=== PATIENT | female | born 1965 | race Caucasian/White ===

== ENCOUNTER 2016-09-24 00:29 | Inpatient (IN) | payer MEDICARE, OTHER ==
[~2016-09-24] VITALS: Ht 162.6 cm; Wt 98.6 kg
[~2016-09-24 00:29] MED LIST: PALI117P IM
[2016-09-24 00:34] VITALS: BP 167/84; PULSE 100; RESP 16; TEMP 98.4; O2SAT 97
--- NOTE | 2016-09-24 01:07 | PD ---
HPI Chief Complaint: Psychiatric Symptoms Time Seen by Provider: 01:05 Travel History International Travel<30 days: No Contact w/Intl Traveler<30days: No Traveled to known affect area: No History of Present Illness HPI 50 year-old female history of bipolar disorder presents to the emergency department voluntarily for psychiatric evaluation. Patient is requesting to be restarted on lithium. [facility] her on injection and Prozac. She states the injection did not work and the Prozac has helped her to feel good "but too good." She states that she needs something to help calm her down area she states lithium always has controlled her mood disorder. She denies suicidal or homicidal ideations. She states she simply just wants restarted on lithium to help her feel normal. PFSH Past Medical History Hx Anticoagulant Therapy: No Arthritis: Yes Asthma: Yes Autoimmune Disease: No Blood Disorders: No Bipolar Disorder: Yes Anxiety: Yes Depression: Yes Heart Rhythm Problems: No Cancer: No Cardiovascular Problems: Yes (Myocardial Infarction 2008) High Cholesterol: No Chemotherapy: No Chest Pain: Yes (2001) Congestive Heart Failure: No COPD: Yes Cerebrovascular Accident: No Diabetes: No Diminished Hearing: No Endocrine: No Gastrointestinal Disorders: Yes GERD: No Glaucoma: No Genitourinary: No Headaches: Yes (migraines for past three years) Hepatitis: No Hiatal Hernia: No Heparin Induced Thrombocytopen: No Hypertension: No Immune Disorder: No Implanted Vascular Access Dvce: No Kidney Stones: No Musculoskeletal: No Neurologic: Yes (CHIARI 1 MALFORMATION) Psychiatric: Yes (Bipolar Disorder depressed psychotic) Reproductive: No Respiratory: Yes (HX OF PE) Immunizations Current: Yes Myocardial Infarction: Yes (2008) Radiation Therapy: No Renal Failure: No Schizophrenia: Yes Seizures: No Sleep Apnea: No Thyroid Disease: No Ulcer: No PNEUMOCCOCAL Vaccine (Year): 3 ?: Not Menopausal: Yes : 3 Para: 2 Miscarriage: 1 Past Surgical History Abdominal Surgery: Yes (GALLBLADDER REMOVED) AICD: No Appendectomy: Yes Cardiac Surgery: No Cholecystectomy: Yes (2003) Ear Surgery: No Eye Surgery: No Genitourinary Surgery: No Gynecologic Surgery: No Hysterectomy: No Neurologic Surgery: No Pacemaker: No Thoracic Surgery: No Tonsillectomy: Yes (AND ADENOIDS) Other Surgery: Yes (GALLBLADDER REMOVER/APPENDECTOMY) Social History Alcohol Use: No Tobacco Use: No Substance Use: No Allergies-Medications (Allergen,Severity, Reaction): Coded Allergies: Geodon (Verified Allergy, Severe, "SOB-TARDIVE DYSKINESIA", 09/24/16) Haldol (Verified Allergy, Severe, 09/24/16) Iodine (Verified Allergy, Severe, HIVES, 09/24/16) Prolixin (Verified Allergy, Severe, 09/24/16) Thorazine (Verified Allergy, Severe, SOB, 09/24/16) Zyprexa (Verified Allergy, Severe, SOB, 09/24/16) Sulfa (Verified Allergy, Mild, 09/24/16) Shellfish (Verified Allergy, Unknown, 09/24/16) Reported Meds & Prescriptions Reported Meds & Active Scripts Active Invega Sustenna Inj (Paliperidone Palmitate) 117 Mg/0.75 Ml Inj 117 Mg IM Q28D Next dose of Invega Sustenna due on 09/29/2016. Review of Systems Except as stated in HPI: all other systems reviewed are Neg Physical Exam Narrative GENERAL: Well-nourished, well-developed female patient in no acute distress SKIN: Warm and dry. HEAD: Normocephalic. EYES: No scleral icterus. No injection or drainage. NECK: Supple, trachea midline. No JVD or lymphadenopathy. CARDIOVASCULAR: Tachycardic rate and rhythm without murmurs, gallops, or rubs. RESPIRATORY: Breath sounds equal bilaterally. No accessory muscle use. GASTROINTESTINAL: Abdomen soft, non-tender, nondistended. MUSCULOSKELETAL: No cyanosis, or edema. BACK: Nontender without obvious deformity. No CVA tenderness. Data Data Last Documented VS Vital Signs Date Time Temp Pulse Resp B/P Pulse Ox O2 Delivery O2 Flow Rate FiO2 09/24/16 00:34 98.4 100 16 167/84 97 Room Air Orders Complete Blood Count With Diff (09/24/16 00:52) Basic Metabolic Panel (Bmp) (09/24/16 00:52) Drug Screen, Random Urine (09/24/16 00:52) Alcohol (Ethanol) (09/24/16 00:52) Psych Screen (09/24/16 00:52) Urinalysis - C+S If Indicated (09/24/16 00:52) MDM Medical Decision Making Medical Screen Exam Complete: Yes Emergency Medical Condition: Yes Medical Record Reviewed: Yes Differential Diagnosis Mood disorder versus personality disorder versus adjustment reaction disorder Narrative Course 50 year-old female presents to emergency department voluntarily for psychiatric evaluation. Patient appears without distress. Lab work is ordered and sent. Pending no acute lab abnormality, patient will be medically cleared. She is signed out to Wally Garcia PA-C who will assume care at this time. Diagnosis Primary Impression: Bipolar disorder Qualified Code: F31.11 - Bipolar affective disorder, currently manic, mild Condition: Stable Ronda Leslie Sep 24, 2016 01:07
[2016-09-24 02:06] LABS: AUTOMATED NEUTROPHIL # 7.5 TH/MM3 (1.8-7.7); BASOPHIL # 0.1 TH/MM3 (0-0.2); BASOPHIL % 1.1 % (0.0-2.0); EOSINOPHIL # 0.7 TH/MM3 (0-0.4); EOSINOPHIL % 5.6 % (0.0-4.0); HEMATOCRIT 36.3 % (35.0-46.0); HEMO FLAGS DIFF FINAL; LYMPH % 27.8 % (9.0-44.0); LYMPHOCYTE # 3.6 TH/MM3 (1.0-4.8); MEAN CELL VOLUME 92.1 FL (80.0-100.0); MEAN CORPUSCULAR HEMOGLOBIN 30.9 PG (27.0-34.0); MEAN CORPUSCULAR HGB CONC 33.5 % (32.0-36.0); MONO % 7.7 % (0.0-8.0); NEUT % 57.8 % (16.0-70.0); PLATELET COUNT 254 TH/MM3 (150-450); RED BLOOD COUNT 3.94 MIL/MM3 (4.00-5.30); RED CELL DISTRIBUTION WIDTH 12.6 % (11.6-17.2); WHITE BLOOD COUNT 12.9 TH/MM3 (4.0-11.0)
[2016-09-24 02:09] LABS: BLOOD, URINE NEG (NEG); COMMENT (UR) CULT NOT INDICATED; CULTURE IF INDICATED CULT NOT INDICATED; GLUCOSE,URINE NEG (NEG); KETONE, URINE NEG (NEG); MUCUS URINE FEW /lpf (OCC); NITRITE,URINE NEG (NEG); SQUAMOUS EPITHELIAL CELL URINE <1 /hpf (0-5); URINE COLOR LIGHT-YELLOW (YELLW/STRAW)
[2016-09-24 02:15] LABS: AMPHETAMINE, URINE NEG (NEG); BARBITURATES, URINE NEG (NEG); COCAINE, URINE NEG (NEG)
[2016-09-24 02:18] LABS: ANION GAP 10 MEQ/L (5-15); BICARBONATE 25.1 MEQ/L (21.0-32.0); BLOOD UREA NITROGEN 20 MG/DL (7-18); CHLORIDE 103 MEQ/L (98-107); GLOMERULAR FILTRATION RATE 57 ML/MIN (>89); POTASSIUM 3.5 MEQ/L (3.5-5.1); SODIUM (NA) 138 MEQ/L (136-145)
--- NOTE | 2016-09-24 02:31 | PD ---
Physical Exam Narrative Patient was signed out to me by Ronda SR pending laboratory results. Please see her documentation for full H&P Data Data Last Documented VS Vital Signs Date Time Temp Pulse Resp B/P Pulse Ox O2 Delivery O2 Flow Rate FiO2 09/24/16 00:34 98.4 100 16 167/84 97 Room Air Orders Complete Blood Count With Diff (09/24/16 00:52) Basic Metabolic Panel (Bmp) (09/24/16 00:52) Drug Screen, Random Urine (09/24/16 00:52) Alcohol (Ethanol) (09/24/16 00:52) Psych Screen (09/24/16 00:52) Urinalysis - C+S If Indicated (09/24/16 00:52) Labs Laboratory Tests Test 09/24/16 09/24/16 01:44 01:47 Urine Color LIGHT-YELLOW Urine Turbidity CLEAR Urine pH 6.0 Urine Specific [place] 1.008 Urine Protein NEG mg/dL Urine Glucose (UA) NEG mg/dL Urine Ketones NEG mg/dL Urine Occult Blood NEG Urine Nitrite NEG Urine Bilirubin NEG Urine Urobilinogen LESS THAN 2.0 MG/DL Urine Leukocyte Esterase NEG Urine RBC LESS THAN 1 /hpf Urine WBC 1 /hpf Urine Squamous Epithelial <1 /hpf Cells Urine Mucus FEW /lpf Microscopic Urinalysis Comment CULT NOT INDICATED Urine Opiates Screen NEG Urine Barbiturates Screen NEG Urine Amphetamines Screen NEG Urine Benzodiazepines Screen NEG Urine Cocaine Screen NEG Urine Cannabinoids Screen NEG White Blood Count 12.9 TH/MM3 Red Blood Count 3.94 MIL/MM3 Hemoglobin 12.2 GM/DL Hematocrit 36.3 % Mean Corpuscular Volume 92.1 FL Mean Corpuscular Hemoglobin 30.9 PG Mean Corpuscular Hemoglobin 33.5 % Concent Red Cell Distribution Width 12.6 % Platelet Count 254 TH/MM3 Mean Platelet Volume 8.5 FL Neutrophils (%) (Auto) 57.8 % Lymphocytes (%) (Auto) 27.8 % Monocytes (%) (Auto) 7.7 % Eosinophils (%) (Auto) 5.6 % Basophils (%) (Auto) 1.1 % Neutrophils # (Auto) 7.5 TH/MM3 Lymphocytes # (Auto) 3.6 TH/MM3 Monocytes # (Auto) 1.0 TH/MM3 Eosinophils # (Auto) 0.7 TH/MM3 Basophils # (Auto) 0.1 TH/MM3 CBC Comment DIFF FINAL Differential Comment Sodium Level 138 MEQ/L Potassium Level 3.5 MEQ/L Chloride Level 103 MEQ/L Carbon Dioxide Level 25.1 MEQ/L Anion Gap 10 MEQ/L Blood Urea Nitrogen 20 MG/DL Creatinine 1.03 MG/DL Estimat Glomerular Filtration 57 ML/MIN Rate Random Glucose 129 MG/DL Calcium Level 8.3 MG/DL Ethyl Alcohol Level LESS THAN 3 MG/DL MDM Supervised Visit with ROHITH: No Narrative Course Labs were obtained and reviewed. Patient medically cleared for further treatment and evaluation by psych. Final disposition per psych. Diagnosis Primary Impression: Bipolar disorder Qualified Code: F31.11 - Bipolar affective disorder, currently manic, mild Condition: Stable Arthur Garcia Sep 24, 2016 02:31
[2016-09-24] MEDS ORDERED: FLUO20CA4 PO (06:08)
[2016-09-24] MEDS ORDERED: ADVI200T17 PO (06:09)
[2016-09-24 06:30] VITALS: BP 107/54; PULSE 84; RESP 18; TEMP 97.7; O2SAT 97
[2016-09-24 10:41] VITALS: BP 100/54; PULSE 82; RESP 18; O2SAT 97
[2016-09-24 14:55] VITALS: BP 135/63; PULSE 78; RESP 18; O2SAT 99
[2016-09-24] MEDS ORDERED: MAGNESIUM HYDROXIDE SUSP 30 ML CUP PO PRN (15:15)
[2016-09-24] MEDS ORDERED: LORazepam 2 MG/ML VIAL IM PRN (15:15)
[2016-09-24] MEDS ORDERED: ALUMINUM/MAGNESIUM/SIMETH 30 ML CUP PO PRN (15:15)
[2016-09-24 15:20] VITALS: BP 129/72; PULSE 80; RESP 18; TEMP 97.5; O2SAT 96
[2016-09-24] MEDS: LORazepam 1 MG TAB PO PRN (17:26)
[2016-09-25] MEDS ORDERED: diphenhydrAMINE HCL 50 MG CAP PO PRN (00:45)
[2016-09-25] MEDS ORDERED: diphenhydrAMINE HCL 50 MG/ML VIAL IM PRN (00:45)
[2016-09-25 06:19] VITALS: BP 122/69; PULSE 80; RESP 18; TEMP 97.4; O2SAT 95
[2016-09-25 09:13] LABS: ANION GAP 8 MEQ/L (5-15); BICARBONATE 28.7 MEQ/L (21.0-32.0); BLOOD UREA NITROGEN 16 MG/DL (7-18); CHLORIDE 104 MEQ/L (98-107); GLOMERULAR FILTRATION RATE 64 ML/MIN (>89); HDL CHOLESTEROL 51.5 MG/DL (40.0-60.0); LDL CHOLESTEROL 161 MG/DL (0-99); POTASSIUM 3.9 MEQ/L (3.5-5.1); SODIUM (NA) 141 MEQ/L (136-145)
--- NOTE | 2016-09-25 13:29 | HHI.HP ---
Provisional Diagnosis Admission Date Sep 24, 2016 at 14:43 [place] I. Bipolar disorder type I, most recent episode manic Certification of Person's Competence To Provide Express and Informed Consent I have personally examined Herminia Delgadillo , a person being served at [facility] on, Sep 25, 2016 13:13. Express and informed consent means consent voluntarily given in writing, by a competent person, after sufficient explanation and disclosure of the subject matter involved to enable the person to make a knowing and willful decision without any element of force, fraud, deceit, duress, or other form of constraint or coercion. This person is 18 years of age or older, is not now known to be incompetent to consent to treatment with a guardian advocate, and does not have a health care surrogate or proxy currently making medical treatment decisions. I have found this person to be one of the following: [X] Competent to provide express and informed consent, as defined above, for voluntary admission to this facility and is competent to provide express and informed consent for treatment. He/she has the consistent capacity to make well reasoned, willful, and knowing decisions concerning his or her medical or mental health treatment. The person fully and consistently understands the purpose of the admission for examination/placement and is fully capable of personally exercising all rights assured [place] Incompetent to provide express and informed consent to voluntary admission, and this is incompetent to provide express and informed consent to treatment. The person must be transferred to involuntary status and a petition for a guardian advocate filed with the Circuit Court. [] Refusing to provide express and informed consent to voluntary admission but is competent to provide express and informed consent for treatment. The person must be discharged or transferred to involuntary status. Form shall be completed within 24 hours of a person's arrival at the receiving facility and filed in the clinical record of each person: 1. Admitted on a voluntary basis 2. Permitted to provide express and informed consent to his/her own treatment 3. Allowed to transfer from involuntary to voluntary status 4. Prior to permitting a person to consent to his or her own treatment after having been previously found incompetent to consent to treatment. History of Present Illness Capacity: Has Capacity HPI The patient is a 50 year-old woman, domiciled with her mother, unemployed, with psychiatric history of bipolar disorder, multiple hospitalizations, 3 previous suicidal attempts, no significant medical history, who presents to the emergency department voluntarily for psychiatric evaluation. Patient states that in the last week she has been manic, not sleeping more than 2 hours per night, talking very fast, not taking good care of herself, with racing thoughts , however she has been functioning okay in the society. She says that she was switched to Prozac and discontinue her lithium due to issues with her weight. She would love to be restarted in lithium again. At this moment she describes her mood as happy, she reports racing thoughts, poor concentration and lack of sleep. She denies suicidal and homicidal ideation, she denies visual and auditory hallucinations. On psychiatric evaluations patient is visibly talkative and restless, but redirectable. No disorganized behavior or agitation observed or reported. She is fully oriented 3. Patient denies the use of drugs and alcohol. Review of Systems Constitutional: DENIES: Diaphoretic episodes, Fatigue, Fever, Weight gain, Weight loss, Chills, Dizziness, Change in appetite, Night Sweats Endocrine: DENIES: Abnorml menstrual pattern, Heat/cold intolerance, Polydipsia , Polyuria, Polyphagia Eyes: DENIES: Blurred vision, Diplopia, Eye inflammation, Eye pain, Vision loss , Photosensitivity, Double Vision Ears, nose, mouth, throat: DENIES: Tinnitus, Hearing loss, Vertigo, Nasal discharge, Oral lesions, Throat pain, Hoarseness, Ear Pain, Running Nose, Epistaxis, Sinus Pain, Toothache, Odynophagia Respiratory: DENIES: Apneas, Cough, Snoring, Wheezing, Hemoptysis, Sputum production, Shortness of breath Cardiovascular: DENIES: Chest pain, Palpitations, Syncope, Dyspnea on Exertion , PND, Lower Extremity Edema, Orthopnea, Claudication Gastrointestinal: DENIES: Abdominal pain, Black stools, Bloody stools, Constipation, Diarrhea, Nausea, Vomiting, Difficulty Swallowing, Anorexia Musculoskeletal: DENIES: Joint pain, Muscle aches, Stiffness, Joint Swelling, Back pain, Neck pain Integumentary: DENIES: Abnormal pigmentation, Pruritus, Rash, Nail changes, Breast masses, Breast skin changes, Nipple discharge Hematologic/lymphatic: DENIES: Bruising, Lymphadenopathy Immunologic/allergic: DENIES: Eczema, Urticaria Neurologic: DENIES: Abnormal gait, Headache, Localized weakness, Paresthesias, Seizures, Speech Problems, Tremor, Poor Balance Past Family Social History Coded Allergies: Geodon (Verified Allergy, Severe, "SOB-TARDIVE DYSKINESIA", 09/24/16) Haldol (Verified Allergy, Severe, 09/24/16) Iodine (Verified Allergy, Severe, HIVES, 09/24/16) Prolixin (Verified Allergy, Severe, 09/24/16) Thorazine (Verified Allergy, Severe, SOB, 09/24/16) Zyprexa (Verified Allergy, Severe, SOB, 09/24/16) Sulfa (Verified Allergy, Mild, 09/24/16) Shellfish (Verified Allergy, Unknown, 09/24/16) Active Scripts Paliperidone Palmitate Inj (Invega Sustenna Inj)117 Mg/0.75 Ml Szr242 Mg IM Q28D #1 VIAL Ref 0 Next dose of Invega Sustenna due on 09/29/2016. Prov:Low Hung MD 09/03/16 Reported Medications Ibuprofen-Diphenhydramine (Advil Pm)200-38 Mg Tab1 Tab PO HS PRN (PAIN/SLEEP) Ref 0 09/24/16 Fluoxetine 20 Mg Cap20 Mg PO DAILY #30 CAP Ref 0 09/24/16 Current Medications Medications (Trade) Dose Ordered Sig/Omkar Route Start Time Stop Time Status Last Admin (Ativan) 1 mg Q6H PRN PO 09/24/16 15:15 09/24/16 17:26 (Ativan Inj) 1 mg Q6H PRN IM 09/24/16 15:15 (Desyrel) 50 mg HS PRN PO 09/24/16 15:15 (Tylenol) 650 mg Q4H PRN PO 09/24/16 15:15 (Milk Of Magnesia Liq) 30 ml DAILY PRN PO 09/24/16 15:15 (Mag-Al Plus Susp Liq) 30 ml Q6H PRN PO 09/24/16 15:15 (Benadryl) 50 mg Q6H PRN PO 09/25/16 00:45 (Benadryl Inj) 50 mg Q6H PRN IM 09/25/16 00:45 Physical Exam Vital Signs Vital Signs Date Time Temp Pulse Resp B/P Pulse Ox O2 Delivery O2 Flow Rate FiO2 09/25/16 06:19 97.4 80 18 122/69 95 09/24/16 14:55 Room Air Mental Status Examination Appearance Over with woman, good hygiene, [facility], age appearing, calm and cooperative Speech: Rapid Orientation: x3 Memory: Unremarkable Thought Process: Logical, Circumstantial Thought Content: Unremarkable Hallucination Type: None Attention and Concentration: Good Suicidal Ideation: No Previous Suicide Attempts: No Previous Homicide Attempts: No Judgement: WNL Affect: Good Mood: Manic Motor Activity: Normal gait Assessment & Plan Problem List: (1) Bipolar 1 disorder, manic, mild Assessment & Plan: On psychiatric evaluation the patient is talkative and kind of disorganized, but redirectable, she reports poor sleep, goal-directed activities, irritability, poor concentration. She denies suicidal or homicidal ideation, she denies visual and auditory hallucinations. Patient reports that she has been decompensated of her bipolar disorder after her lithium was discontinued due to weight issues. Patient will be admitted in psychiatry in order to review started lithium 300 mg twice a day and to achieve therapeutic therapeutics blood levels. ICD Code: F31.11 Assessment & Plan Estimated LOS: Bassam Uriarte MD Sep 25, 2016 13:29
[2016-09-25 18:00] VITALS: BP 110/71; PULSE 86; RESP 18; TEMP 97.2; O2SAT 97
[2016-09-25] MEDS: LITHIUM CARBONATE 300 MG CAP PO SCH (21:38)
[2016-09-25] MEDS: LORazepam 1 MG TAB PO PRN (21:49)
[2016-09-25] MEDS: ACETAMINOPHEN 325 MG TAB PO PRN (22:43)
[2016-09-25] MEDS: traZODone HCL 50 MG TAB PO PRN (22:43)
[2016-09-26 06:35] VITALS: BP 89/57; PULSE 87; RESP 26; TEMP 98.1; O2SAT 95
[2016-09-26] MEDS: LITHIUM CARBONATE 300 MG CAP PO SCH (08:50)
--- NOTE | 2016-09-26 15:32 | HHI.PYPN ---
Subjective Remarks Patient seen and examined with nursing staff. Chart reviewed. Case discussed with nursing staff. On my examination today, patient is in good spirits. She is ambulating around the unit with a steady gait. She says that she is pleased to be back on her lithium and would like to increase the dose. She says that she normally takes lithium SR 450 mg twice daily. She also requests a low- cholesterol/heart healthy diet. No SI or HI voiced. Denies side effects from medications. Review of Systems Other Denies chest pain, shortness of breath. No other physical complaints. Objective Alert: Yes [place]: Person, Place Mood: Calm Affect: Blunted Memory Intact: Comment (seems intact on clinical exam) Hallucinations: Other (no AVH) Delusions: No Delusion Type: Other (no delusions) Suicidal: Ideation (no SI) Homicidal: Ideation (no HI) Insight/Judgement Fair Remarks No abnormal motor movements noted. Thought process linear. Speech within normal limits for rate, tone and volume. Labs Labs reviewed. Vitals/IOs Vital Signs Date Time Temp Pulse Resp B/P Pulse Ox O2 Delivery O2 Flow Rate FiO2 09/26/16 06:35 98.1 87 26 89/57 95 09/24/16 14:55 Room Air Assessment & Plan Problem List: (1) Bipolar 1 disorder, manic, mild ICD Code: F31.11 Assessment & Plan Titrate lithium to lithium SR 450 mg twice daily. Plan to check a lithium level middle of the week. Check a BMP tomorrow given the GFR is mildly decreased. Heart healthy diet per patient request. Continue other medications and care as ordered. Justification for Cont. Inpt. Medication adjustments Discharge Planning Per Dr. Mckeon Request HC Surrog/Guard Advoc?: No Low Hung MD Sep 26, 2016 15:32
[2016-09-26] MEDS: LITHIUM CARBONATE 450 MG CONTROLLED RELEASE TAB PO SCH (18:00)
[2016-09-26 20:00] VITALS: BP 113/66; PULSE 88; RESP 16; TEMP 98.6; O2SAT 96
[2016-09-26] MEDS: traZODone HCL 50 MG TAB PO PRN (21:20)
[2016-09-26] MEDS: LORazepam 1 MG TAB PO PRN (22:06)
[2016-09-26] MEDS: ACETAMINOPHEN 325 MG TAB PO PRN (22:08)
[2016-09-27 05:41] VITALS: BP 97/66; PULSE 80; RESP 17; TEMP 98.5; O2SAT 98
[2016-09-27 06:21] VITALS: BP 97/66; PULSE 80; RESP 17; TEMP 98.5; O2SAT 98
[2016-09-27 07:45] LABS: BICARBONATE 25.9 MEQ/L (21.0-32.0); POTASSIUM 3.9 MEQ/L (3.5-5.1)
[2016-09-27] MEDS: LITHIUM CARBONATE 450 MG CONTROLLED RELEASE TAB PO SCH ×2 (09:17→17:50)
--- NOTE | 2016-09-27 14:53 | HHI.PYPN ---
Subjective Remarks Patient seen, chart reviewed, case discussed with staff Patient continues to report poor sleep, racing thoughts and is anxious about her future. She feels she will need support in a intermediate after discharge. She is denying side effects to Veguita, including increased urination dizziness confusion or other changes. LABs are unremarkable, slight increase in eos and monos, leukocytosis and anemia, with decreased GFR Review of Systems Musculoskeletal: COMPLAINS OF: Joint pain Psychiatric: COMPLAINS OF: Anxiety, Confusion, Mood changes, Depression Objective Alert: Yes [place]: Person, Place Mood: Calm Affect: Blunted Memory Intact: Comment (seems intact on clinical exam) Hallucinations: Other (no AVH) Delusions: No Delusion Type: Other (no delusions) Suicidal: Ideation (no SI) Homicidal: Ideation (no HI) Insight/Judgement poor Labs Test 09/27/16 06:44 Sodium Level 141 MEQ/L Potassium Level 3.9 MEQ/L Chloride Level 106 MEQ/L Carbon Dioxide Level 25.9 MEQ/L Anion Gap 9 MEQ/L Blood Urea Nitrogen 23 MG/DL Creatinine 0.96 MG/DL Estimat Glomerular Filtration 62 ML/MIN Rate Random Glucose 98 MG/DL Calcium Level 8.8 MG/DL Vitals/IOs Vital Signs Date Time Temp Pulse Resp B/P Pulse Ox O2 Delivery O2 Flow Rate FiO2 09/27/16 06:21 98.5 80 17 97/66 98 09/24/16 14:55 Room Air Assessment & Plan Problem List: (1) Bipolar 1 disorder, manic, mild Assessment & Plan: patient is improving slightly with some improvement in her racing thoughts and insomnia. Will continue with Veguita and follow GFR as Veg[place]a level rises. ICD Code: F31.11 Assessment & Plan Estimated LOS: days Justification for Cont. Inpt. medication changes require active monitoring, risk of recompensation Request HC Surrog/Guard Advoc?: No Nicole Mckeon MD Sep 27, 2016 14:53
[2016-09-27 17:14] LABS: HEMOGLOBIN A1a 1.1 %; HEMOGLOBIN F 0.9 %; HEMOGLOBIN LA1C 1.9 %; HEMOGLOBIN P3 3.7 %
[2016-09-27] MEDS: ACETAMINOPHEN 325 MG TAB PO PRN (19:40)
[2016-09-27 21:36] VITALS: BP 107/60; PULSE 92; RESP 17; TEMP 98; O2SAT 96
[2016-09-27] MEDS: LORazepam 1 MG TAB PO PRN (22:36)
[2016-09-28 06:03] VITALS: BP 109/53; PULSE 83; RESP 18; TEMP 98.2; O2SAT 97
[2016-09-28] MEDS: LITHIUM CARBONATE 450 MG CONTROLLED RELEASE TAB PO SCH ×2 (08:55→17:32)
--- NOTE | 2016-09-28 13:10 | HHI.PYPN ---
Subjective Remarks Patient was seen and discussed with the staff writer. Patient reported that she has been feeling much better as long as she takes the lithium her mood is pretty much on an even keel and stable. No side effects were complained. Patient denied any suicidal ideation intentions of plan. No behavior or management problem reported. Patient has been sleeping fairly well. She wants to go to an [facility] and the child welfare social worker are assisting her in finding an appropriate one. Continue with the same treatment Review of Systems Except as stated in HPI: all other systems reviewed are Neg Psychiatric: COMPLAINS OF: Mood changes, Depression Objective Alert: Yes [place]: Person, Place, Date, Situation Mood: Calm, Happy Affect: Labile Memory Intact: Comment (seems intact on clinical exam) Hallucinations: Other (no AVH) Delusions: No Delusion Type: Other (no delusions) Suicidal: Ideation (no SI) Homicidal: Ideation (no HI) Insight/Judgement Fair Remarks Attention and concentration improving. Gait normal. Fund of knowledge average language normal Vitals/IOs Vital Signs Date Time Temp Pulse Resp B/P Pulse Ox O2 Delivery O2 Flow Rate FiO2 09/28/16 06:03 98.2 83 18 109/53 97 09/24/16 14:55 Room Air Assessment & Plan Problem List: (1) Bipolar 1 disorder, manic, mild ICD Code: F31.11 Assessment & Plan Estimated LOS: days Justification for Cont. Inpt. Medication monitoring to stabilize mood Request HC Surrog/Guard Advoc?: No Rayo Merrill MD Sep 28, 2016 13:10
[2016-09-28 20:00] VITALS: BP 105/58; PULSE 79; RESP 18; TEMP 98.5
[2016-09-28] MEDS: LORazepam 1 MG TAB PO PRN (20:30)
[2016-09-28] MEDS: ACETAMINOPHEN 325 MG TAB PO PRN (21:46)
[2016-09-28] MEDS: traZODone HCL 50 MG TAB PO PRN (21:46)
[2016-09-29 05:46] VITALS: BP 101/55; PULSE 66; RESP 16; TEMP 97.3; O2SAT 96
[2016-09-29] MEDS: LITHIUM CARBONATE 450 MG CONTROLLED RELEASE TAB PO SCH ×2 (08:31→18:53)
--- NOTE | 2016-09-29 11:28 | HHI.PYPN ---
Subjective Remarks Patient was seen and discussed with the direct care staffer. Patient claimed that she has been doing much better. She was evaluated by some people from [facility] and patient feels hopeful about being able to find a place. She is willing to take the medication and follow-up as an outpatient. No behavior or management problem reported. Denied any suicidal ideation intentions or plan. Continue with the same treatment Review of Systems Except as stated in HPI: all other systems reviewed are Neg Psychiatric: COMPLAINS OF: Mood changes Objective Alert: Yes [place]: Person, Place, Date, Situation Mood: Calm, Happy Affect: Labile Memory Intact: Comment (seems intact on clinical exam) Hallucinations: Other (no AVH) Delusions: No Delusion Type: Other (no delusions) Suicidal: Ideation (no SI) Homicidal: Ideation (no HI) Insight/Judgement Fair Remarks Attention and concentration improving. Gait normal. Language normal. Fund of knowledge average Vitals/IOs Vital Signs Date Time Temp Pulse Resp B/P Pulse Ox O2 Delivery O2 Flow Rate FiO2 09/29/16 05:46 97.3 66 16 101/55 96 Assessment & Plan Problem List: (1) Bipolar 1 disorder, manic, mild ICD Code: F31.11 Assessment & Plan Estimated LOS: days Justification for Cont. Inpt. Monitoring of the medication in finding an appropriate place Request HC Surrog/Guard Advoc?: No Rayo Merrill MD Sep 29, 2016 11:27
[2016-09-29 18:58] VITALS: BP 108/55; PULSE 88; RESP 17; TEMP 98.3; O2SAT 98
[2016-09-30] MEDS: ACETAMINOPHEN 325 MG TAB PO PRN (05:23)
[2016-09-30 05:46] VITALS: BP 98/63; PULSE 83; RESP 17; TEMP 97.4; O2SAT 98
[2016-09-30] MEDS: LITHIUM CARBONATE 450 MG CONTROLLED RELEASE TAB PO SCH ×2 (09:10→17:05)
--- NOTE | 2016-09-30 11:17 | HHI.PYPN ---
Subjective Remarks Patient was seen and discussed with the staffing director. No complaints were voiced. No behavior or management problem reported. Patient claimed that she has been feeling much better. Denied any manic or hypomanic type of behavior. Denied any auditory or visual hallucinations. Denied any suicidal ideation intentions or plan. She feels hopeful about the future willing to take the medication and follow-up as an outpatient. No side effects were complained. Continue with the same treatment. She probably will be accepted and discharged tomorrow Review of Systems Except as stated in HPI: all other systems reviewed are Neg Psychiatric: COMPLAINS OF: Mood changes Objective Alert: Yes [place]: Person, Place, Date, Situation Mood: Calm, Happy Affect: Labile Memory Intact: Comment (seems intact on clinical exam) Hallucinations: Other (no AVH) Delusions: No Delusion Type: Other (no delusions) Suicidal: Ideation (no SI) Homicidal: Ideation (no HI) Insight/Judgement Fair Remarks Attention and concentration good. Gait normal. Language normal. Fund of knowledge average Labs Test 09/30/16 07:20 [place] Level 0.6 MEQ/L Vitals/IOs Vital Signs Date Time Temp Pulse Resp B/P Pulse Ox O2 Delivery O2 Flow Rate FiO2 09/30/16 05:46 97.4 83 17 98/63 98 Assessment & Plan Problem List: (1) Bipolar 1 disorder, manic, mild ICD Code: F31.11 Assessment & Plan Estimated LOS: days Justification for Cont. Inpt. Awaiting for the appropriate placement and risk of decompensation Request HC Surrog/Guard Advoc?: No Rayo Merrill MD Sep 30, 2016 11:17
[2016-09-30] MEDS: LORazepam 1 MG TAB PO PRN (18:29)
[2016-09-30 19:44] VITALS: BP 115/60; PULSE 93; RESP 18; TEMP 99; O2SAT 97
[2016-09-30] MEDS: traZODone HCL 50 MG TAB PO PRN (21:55)
[2016-10-01 06:13] VITALS: BP 93/46; PULSE 85; RESP 16; TEMP 98.7; O2SAT 96
[2016-10-01] MEDS: LITHIUM CARBONATE 450 MG CONTROLLED RELEASE TAB PO SCH ×2 (09:10→16:00)
--- NOTE | 2016-10-01 13:45 | HHI.DS ---
Psychiatry Discharge Summary Inpatient Psychiatric care?: Yes Advance Directive: No Reason Not Provided: N/A Mental Health AdvanceDirective: No Health Care Proxy: No Admission Admission Date Sep 24, 2016 at 14:43 Admission Diagnosis: (1) Bipolar 1 disorder, manic, mild ICD Code: F31.11 GAF Score: 45 Brief History The patient is a 50 year-old woman, domiciled with her mother, unemployed, with psychiatric history of bipolar disorder, multiple hospitalizations, 3 previous suicidal attempts, no significant medical history, who presents to the emergency department voluntarily for psychiatric evaluation. Patient states that in the last week she has been manic, not sleeping more than 2 hours per night, talking very fast, not taking good care of herself, with racing thoughts , however she has been functioning okay in the society. She says that she was switched to Prozac and discontinue her lithium due to issues with her weight. She would love to be restarted in lithium again. At this moment she describes her mood as happy, she reports racing thoughts, poor concentration and lack of sleep. She denies suicidal and homicidal ideation, she denies visual and auditory hallucinations. On psychiatric evaluations patient is visibly talkative and restless, but redirectable. No disorganized behavior or agitation observed or reported. She is fully oriented 3. Patient denies the use of drugs and alcohol. Tobacco Use In Past 30 Days: No Tobacco Past 30 Days Alcohol Use: Never Hospital Course Patient was started on supportive treatment her medication was resumed. She persevered in all the therapeutic activity on the floor started to feel better. She wanted to go to an [facility] and she was evaluated and was accepted. Patient denied any hypomanic or manic type of symptoms. Patient denied any suicidal ideation intentions or plan at that point arrangements were made for her to be discharged to an [facility] and with outpatient follow-up which patient was willing to do so Results Blood Pressure 93 / 46 Vital Signs Date Time Temp Pulse Resp B/P Pulse Ox O2 Delivery O2 Flow Rate FiO2 10/01/16 06:13 98.7 85 16 93/46 96 Laboratory Results Test 09/25/16 09/30/16 07:56 07:20 Hemoglobin A1c 5.9 % (4.3-6.0) Triglycerides Level 108 MG/DL (42-150) Cholesterol Level 234 MG/DL (120-200) LDL Cholesterol 161 MG/DL (0-99) HDL Cholesterol 51.5 MG/DL (40.0-60.0) [place] Level 0.6 MEQ/L (0.5-1.5) Summary of Major Lab Results Nothing significant Summary of Procedures None Imaging None Pending results at discharge: No Medications # of Antipsychotic meds at D/C: 1 Appropriate >1 Antipsych meds?: 2 Approp Antipsych med options 1 - Minimum of three failed multiple trials of monotherapy. Discharge Discharge Date: Oct 01, 2016 Discharge Diagnosis: (1) Bipolar 1 disorder, manic, mild Diagnosis: Principal ICD Code: F31.11 Mental Status Exam at Disch Patient was alert oriented 3 cooperative casually dressed her speech was clear spontaneous without any evidence of loose association or flights of ideas or pressure speech her mood was described as feeling much better and was willing to follow-up as an outpatient and take the medication and try the [facility] patient denied any suicidal ideation intentions or plan Pt Condition on Discharge: Stable Discharge Disposition: [facility]/LONG-TERM Discharge Instructions Diet Instructions: As Tolerated, No Restrictions Activities you can perform: Regular-No Restrictions Scheduled Appointment: [facility]) Appointment Date: Oct 14, 2016 Appointment Time: 8:45am Discharge Time <= 30 minutes Discharge/Advance Care Plan Health Problems: (1) Bipolar 1 disorder, manic, mild Goals to promote your health * To prevent worsening of your condition and complications * To maintain your health at the optimal level Directions to meet your goals Take your medications as prescribed Follow your dietary instruction Follow activity as directed Keep your appointments as scheduled Take your immunizations and boosters as scheduled If your symptoms worsen call your PCP, if no PCP go to Urgent Care Center or Emergency Room For 18/04 questions related to your inpatient stay or results of tests pending at discharge, please contact Dr. Rayo Merrill at Smoking is Dangerous to Your Health. Avoid second hand smoking Rayo Merrill MD Oct 01, 2016 13:45
[2016-10-01] MEDS ORDERED: LITH450T PO (13:46)
== END 2016-10-01 17:05 | DRG 885 ==
LOC: NEPA 00:29 → NEDA 14:43 → H260 15:15
PROVIDERS: ADMIT Psychiatry & Neurology Psychiatry; ATTEND Psychiatry & Neurology Psychiatry
DX: F31.11 Bipolar disorder, current episode manic without psychotic features, mild (principal); J44.9 Chronic obstructive pulmonary disease, unspecified; M19.90 Unspecified osteoarthritis, unspecified site; J45.909 Unspecified asthma, uncomplicated; I25.2 Old myocardial infarction; Z86.711 Personal history of pulmonary embolism
CPT/HCPCS: 80048; 80061; 80178; 80301; 80320; 81001; 83036; 85025; 99284; G0479

== ENCOUNTER 2017-07-08 16:47 | Inpatient (IN) | payer MEDICARE, OTHER ==
[~2017-07-08] VITALS: Ht 162.6 cm; Wt 98.5 kg
[~2017-07-08 16:47] MED LIST changes: +ADVI200T17 PO; +FLUO20CA4 PO; +LITH450T PO
[2017-07-08 16:50] VITALS: BP 139/97; PULSE 123; RESP 26; TEMP 98.6; O2SAT 96
--- NOTE | 2017-07-08 18:26 | PD ---
HPI Chief Complaint: Suicide Ideation/Attempt Time Seen by Provider: 18:16 Travel History International Travel<30 days: No Contact w/Intl Traveler<30days: No Traveled to known affect area: No History of Present Illness HPI 51-year-old female presents to the emergency Department voluntarily for suicidal ideation. She has a history of bipolar disorder and was taken off lithium 6 months ago. She reports since that time she has had progressively worsening depression and feels suicidal the last 2 days. Her plan is to overdose on her mother's medications. She has a previous history of suicide attempts by overdose. She denies taking any medications, drugs, alcohol today. She has no medical complaint. PFSH Past Medical History Hx Anticoagulant Therapy: No Arthritis: Yes Asthma: Yes Autoimmune Disease: No Blood Disorders: No Bipolar Disorder: Yes Anxiety: Yes Depression: Yes Heart Rhythm Problems: No Cancer: No Cardiovascular Problems: No High Cholesterol: No Chemotherapy: No Chest Pain: Yes (2001) Congestive Heart Failure: No COPD: Yes Cerebrovascular Accident: No Diabetes: No Diminished Hearing: No Endocrine: No Gastrointestinal Disorders: Yes GERD: No Glaucoma: No Genitourinary: No Headaches: No Hepatitis: No Hiatal Hernia: No Heparin Induced Thrombocytopen: No Hypertension: No Immune Disorder: No Implanted Vascular Access Dvce: No Kidney Stones: No Musculoskeletal: No Neurologic: Yes (CHIARI 1 MALFORMATION) Psychiatric: No Reproductive: No Respiratory: Yes (HX OF PE) Immunizations Current: Yes Myocardial Infarction: Yes (2008) Radiation Therapy: No Renal Failure: No Schizophrenia: Yes Seizures: No Sleep Apnea: No Thyroid Disease: No Ulcer: No PNEUMOCCOCAL Vaccine (Year): 3 ?: Not Menopausal: Yes : 3 Para: 2 Miscarriage: 1 Past Surgical History Abdominal Surgery: Yes (GALLBLADDER REMOVED) AICD: No Appendectomy: Yes Cardiac Surgery: No Cholecystectomy: Yes (2003) Ear Surgery: No Eye Surgery: No Genitourinary Surgery: No Gynecologic Surgery: No Hysterectomy: No Neurologic Surgery: No Pacemaker: No Thoracic Surgery: No Tonsillectomy: Yes (AND ADENOIDS) Other Surgery: Yes (GALLBLADDER REMOVER/APPENDECTOMY) Social History Alcohol Use: No Tobacco Use: No Substance Use: No Allergies-Medications (Allergen,Severity, Reaction): Coded Allergies: chlorpromazine (Unverified Allergy, Severe, SOB, 07/08/17) fluphenazine (Unverified Allergy, Severe, 07/08/17) haloperidol (Unverified Allergy, Severe, 07/08/17) iodine (Unverified Allergy, Severe, HIVES, 07/08/17) olanzapine (Unverified Allergy, Severe, SOB, 07/08/17) potassium iodide (Unverified Allergy, Severe, HIVES, 07/08/17) povidone-iodine (Unverified Allergy, Severe, HIVES, 07/08/17) sodium iodide (Unverified Allergy, Severe, HIVES, 07/08/17) sodium iodide (Unverified Allergy, Severe, HIVES, 07/08/17) ziprasidone (Unverified Allergy, Severe, "SOB-TARDIVE DYSKINESIA", ) Sulfa (Sulfonamide Antibiotics) (Unverified Allergy, Mild, 07/08/17) lurasidone (Verified Allergy, Unknown, 07/08/17) shellfish derived (Unverified Allergy, Unknown, 07/08/17) Reported Meds & Prescriptions Reported Meds & Active Scripts Active Reported Zyprexa (Olanzapine) 10 Mg Tab 10 Mg PO HS Paxil (Paroxetine HCl) 20 Mg Tablet 20 Mg PO DAILY Advil Pm (Ibuprofen-Diphenhydramine) 200-38 Mg Tab 1 Tab PO HS PRN Review of Systems Except as stated in HPI: all other systems reviewed are Neg General / Constitutional: No: Fever Eyes: No: Visual changes HENT: No: Headaches Cardiovascular: No: Chest Pain or Discomfort Respiratory: No: Shortness of Breath Gastrointestinal: No: Abdominal Pain Genitourinary: No: Dysuria Physical Exam Narrative GENERAL: Well-nourished, well-developed patient. Patient in mild distress and crying SKIN: Focused skin assessment warm/dry. HEAD: Normocephalic. EYES: No scleral icterus. No injection or drainage. NECK: Supple, trachea midline. No JVD or lymphadenopathy. CARDIOVASCULAR: Regular rate and rhythm without murmurs, gallops, or rubs. RESPIRATORY: Breath sounds equal bilaterally. No accessory muscle use. GASTROINTESTINAL: Abdomen soft, non-tender, nondistended. MUSCULOSKELETAL: No cyanosis, or edema. BACK: Nontender without obvious deformity. No CVA tenderness. PSYCHIATRIC: No delusional thought processes. No hallucinations. Tearful and crying Data Data Last Documented VS Vital Signs Date Time Temp Pulse Resp B/P (MAP) Pulse Ox O2 Delivery O2 Flow Rate FiO2 07/08/17 19:32 97.9 109 20 132/74 (93) 99 Orders Orders Complete Blood Count With Diff (07/08/17 18:21) Comprehensive Metabolic Panel (07/08/17 18:21) Psych Screen (07/08/17 18:21) Oral (Li) (07/08/17 18:21) Drug Screen, Random Urine (07/08/17 18:21) Alcohol (Ethanol) (07/08/17 18:21) Salicylates (Aspirin) (07/08/17 18:21) Tylenol (Acetaminophen) (07/08/17 18:21) Insulin Human Regular Inj (Novolin R Inj (07/08/17 20:15) Iv Access Insert/Monitor (07/08/17 20:17) Sodium Chlor 0.9% 1000 Ml Inj (Ns 1000 M (07/08/17 20:17) Labs Laboratory Tests Test 07/08/17 18:50 07/08/17 19:25 White Blood Count 11.4 TH/MM3 Red Blood Count 4.55 MIL/MM3 Hemoglobin 14.1 GM/DL Hematocrit 41.9 % Mean Corpuscular Volume 92.2 FL Mean Corpuscular Hemoglobin 30.9 PG Mean Corpuscular Hemoglobin Concent 33.6 % Red Cell Distribution Width 13.4 % Platelet Count 274 TH/MM3 Mean Platelet Volume 9.9 FL Neutrophils (%) (Auto) 65.3 % Lymphocytes (%) (Auto) 22.9 % Monocytes (%) (Auto) 7.8 % Eosinophils (%) (Auto) 3.2 % Basophils (%) (Auto) 0.8 % Neutrophils # (Auto) 7.5 TH/MM3 Lymphocytes # (Auto) 2.6 TH/MM3 Monocytes # (Auto) 0.9 TH/MM3 Eosinophils # (Auto) 0.4 TH/MM3 Basophils # (Auto) 0.1 TH/MM3 CBC Comment DIFF FINAL Differential Comment Blood Urea Nitrogen 16 MG/DL Creatinine 1.17 MG/DL Random Glucose 767 MG/DL Total Protein 7.2 GM/DL Albumin 3.1 GM/DL Calcium Level 9.7 MG/DL Alkaline Phosphatase 159 U/L Aspartate Amino Transf (AST/SGOT) 22 U/L Alanine Aminotransferase (ALT/SGPT) 37 U/L Total Bilirubin 0.3 MG/DL Sodium Level 126 MEQ/L Potassium Level 4.1 MEQ/L Chloride Level 91 MEQ/L Carbon Dioxide Level 20.6 MEQ/L Anion Gap 14 MEQ/L Estimat Glomerular Filtration Rate 49 ML/MIN Salicylates Level 2.7 MG/DL Acetaminophen Level LESS THAN 2.0 MCG/ML Ethyl Alcohol Level LESS THAN 3 MG/DL Urine Opiates Screen NEG Urine Barbiturates Screen NEG Urine Amphetamines Screen NEG Urine Benzodiazepines Screen NEG Urine Cocaine Screen NEG Urine Cannabinoids Screen NEG MDM Medical Decision Making Medical Screen Exam Complete: Yes Emergency Medical Condition: Yes Differential Diagnosis Bipolar disorder, mood disorder, substance induced disorder, suicidal ideation Narrative Course 51-year-old female presents to the emergency Department voluntarily for suicidal ideation. She has a history of bipolar disorder and was taken off lithium 6 months ago. She reports since that time she has had progressively worsening depression and feels suicidal the last 2 days. Her plan is to overdose on her mother's medications. She has a previous history of suicide attempts by overdose. She denies taking any medications, drugs, alcohol today. She has no medical complaint. Patient is placed under Landa act. She will be evaluated in the emergency department and when medically cleared will have psychiatric evaluation. Mental health screening discussed with the patient. Psychiatric screen ordered. CBC: Unremarkable CMP: Sodium 126, glucose, 767, chloride 91, carbon dioxide 20.6, creatinine 1.17 , alk phosphatase and 159 TOXICOLOGY: LITHIUM: IV access established, 10 units of regular subcutaneous insulin administered, 1 L normal saline administered. End of shift. The patient will be followed & managed by my attending Dr. Shen from this point. Xenia Dacosta Jul 08, 2017 18:26
[2017-07-08 19:15] LABS: AUTOMATED NEUTROPHIL # 7.5 TH/MM3 (1.8-7.7); BASOPHIL # 0.1 TH/MM3 (0-0.2); BASOPHIL % 0.8 % (0.0-2.0); EOSINOPHIL # 0.4 TH/MM3 (0-0.4); EOSINOPHIL % 3.2 % (0.0-4.0); HEMATOCRIT 41.9 % (35.0-46.0); HEMO FLAGS DIFF FINAL; LYMPH % 22.9 % (9.0-44.0); LYMPHOCYTE # 2.6 TH/MM3 (1.0-4.8); MEAN CELL VOLUME 92.2 FL (80.0-100.0); MEAN CORPUSCULAR HEMOGLOBIN 30.9 PG (27.0-34.0); MEAN CORPUSCULAR HGB CONC 33.6 % (32.0-36.0); MONO % 7.8 % (0.0-8.0); NEUT % 65.3 % (16.0-70.0); PLATELET COUNT 274 TH/MM3 (150-450); RED BLOOD COUNT 4.55 MIL/MM3 (4.00-5.30); RED CELL DISTRIBUTION WIDTH 13.4 % (11.6-17.2); WHITE BLOOD COUNT 11.4 TH/MM3 (4.0-11.0)
[2017-07-08 19:32] VITALS: BP 132/74; PULSE 109; RESP 20; TEMP 97.9; O2SAT 99
[2017-07-08] MEDS ORDERED: ZYPR10TA PO (19:40)
[2017-07-08] MEDS ORDERED: PAXI20TA10 PO (19:40)
[2017-07-08 19:54] LABS: ANION GAP 14 MEQ/L (5-15)
[2017-07-08 20:00] LABS: ALKALINE PHOSPHATASE 159 U/L (45-117); ALT (GPT) 37 U/L (10-53); AST (GOT) 22 U/L (15-37); BICARBONATE 20.6 MEQ/L (21.0-32.0); BLOOD UREA NITROGEN 16 MG/DL (7-18); CHLORIDE 91 MEQ/L (98-107); GLOMERULAR FILTRATION RATE 49 ML/MIN (>89); POTASSIUM 4.1 MEQ/L (3.5-5.1); SODIUM (NA) 126 MEQ/L (136-145); TOTAL BILIRUBIN ADULT 0.3 MG/DL (0.2-1.0)
[2017-07-08 20:06] LABS: ACETAMINOPHEN LESS THAN 2.0 MCG/ML (10.0-30.0); ALCOHOL LESS THAN 3 MG/DL (0-5)
[2017-07-08] MEDS ORDERED: INSULIN HUMAN REGULAR 1,000 UNITS/10 ML VIAL SQ ONE ×2 (20:15→22:30)
[2017-07-08] MEDS ORDERED: SODIUM CHLOR 0.9% 1000 ML INJ 1,000 ML IV SCH (20:17)
[2017-07-08] MEDS ORDERED: SODIUM CHLOR 0.9% 1000 ML INJ 1,000 ML IV ONE ×2 (21:00)
[2017-07-08] MEDS ORDERED: metFORMIN HCL 500 MG TAB PO ONE (21:15)
--- NOTE | 2017-07-08 21:19 | PD ---
Physical Exam Date Seen by Provider: Jul 08, 2017 Narrative Care was turned over to me at 9 PM by Xenia Dacosta NP. The patient was being seen for medical clearance for psychiatric evaluation. She was found to be hyperglycemic with a blood sugar in the 700s. The patient admits to polyuria and polydipsia for the last several weeks. Data Data Last Documented VS Vital Signs Date Time Temp Pulse Resp B/P (MAP) Pulse Ox O2 Delivery O2 Flow Rate FiO2 07/08/17 19:32 97.9 109 20 132/74 (93) 99 Orders Orders Complete Blood Count With Diff (07/08/17 18:21) Comprehensive Metabolic Panel (07/08/17 18:21) Psych Screen (07/08/17 18:21) [place] (Li) (07/08/17 18:21) Drug Screen, Random Urine (07/08/17 18:21) Alcohol (Ethanol) (07/08/17 18:21) Salicylates (Aspirin) (07/08/17 18:21) Tylenol (Acetaminophen) (07/08/17 18:21) Insulin Human Regular Inj (Novolin R Inj (07/08/17 20:15) Iv Access Insert/Monitor (07/08/17 20:17) Sodium Chlor 0.9% 1000 Ml Inj (Ns 1000 M (07/08/17 20:17) Sodium Chlor 0.9% 1000 Ml Inj (Ns 1000 M (07/08/17 21:00) Sodium Chlor 0.9% 1000 Ml Inj (Ns 1000 M (07/08/17 21:00) Blood Glucose (07/08/17 20:58) Blood Glucose (07/08/17 21:58) Blood Glucose (07/08/17 22:58) Blood Glucose (07/08/17 23:58) Metformin (Glucophage) (07/08/17 21:15) Insulin Human Regular Inj (Novolin R Inj (07/08/17 22:30) Basic Metabolic Panel (Bmp) (07/08/17 23:10) Insulin Human Regular Inj (Novolin R Inj (07/09/17 00:15) Potassium Chloride (Kcl) (07/09/17 00:30) Potassium Chloride (Kcl) (07/09/17 01:30) Labs Laboratory Tests Test 07/08/17 18:50 07/08/17 19:25 07/08/17 23:20 White Blood Count 11.4 TH/MM3 Red Blood Count 4.55 MIL/MM3 Hemoglobin 14.1 GM/DL Hematocrit 41.9 % Mean Corpuscular Volume 92.2 FL Mean Corpuscular Hemoglobin 30.9 PG Mean Corpuscular Hemoglobin Concent 33.6 % Red Cell Distribution Width 13.4 % Platelet Count 274 TH/MM3 Mean Platelet Volume 9.9 FL Neutrophils (%) (Auto) 65.3 % Lymphocytes (%) (Auto) 22.9 % Monocytes (%) (Auto) 7.8 % Eosinophils (%) (Auto) 3.2 % Basophils (%) (Auto) 0.8 % Neutrophils # (Auto) 7.5 TH/MM3 Lymphocytes # (Auto) 2.6 TH/MM3 Monocytes # (Auto) 0.9 TH/MM3 Eosinophils # (Auto) 0.4 TH/MM3 Basophils # (Auto) 0.1 TH/MM3 CBC Comment DIFF FINAL Differential Comment Blood Urea Nitrogen 16 MG/DL 12 MG/DL Creatinine 1.17 MG/DL 1.04 MG/DL Random Glucose 767 MG/DL 490 MG/DL Total Protein 7.2 GM/DL Albumin 3.1 GM/DL Calcium Level 9.7 MG/DL 7.7 MG/DL Alkaline Phosphatase 159 U/L Aspartate Amino Transf (AST/SGOT) 22 U/L Alanine Aminotransferase (ALT/SGPT) 37 U/L Total Bilirubin 0.3 MG/DL Sodium Level 126 MEQ/L 134 MEQ/L Potassium Level 4.1 MEQ/L 3.5 MEQ/L Chloride Level 91 MEQ/L 100 MEQ/L Carbon Dioxide Level 20.6 MEQ/L 27.1 MEQ/L Anion Gap 14 MEQ/L 7 MEQ/L Estimat Glomerular Filtration Rate 49 ML/MIN 56 ML/MIN Salicylates Level 2.7 MG/DL Acetaminophen Level LESS THAN 2.0 MCG/ML [place] Level LESS THAN 0.1 MEQ/L Ethyl Alcohol Level LESS THAN 3 MG/DL Urine Opiates Screen NEG Urine Barbiturates Screen NEG Urine Amphetamines Screen NEG Urine Benzodiazepines Screen NEG Urine Cocaine Screen NEG Urine Cannabinoids Screen NEG MDM Supervised Visit with ROHITH: Yes Narrative Course I, Dr. Shen, have reviewed the advance practice practitioner's documentation and am in agreement, met with the patient face to face, made the diagnosis, and the medical decision making was done by me. *My assessment and Findings: The patient is lucid. She does not smell of ketones. CBC & BMP Diagram 07/08/17 18:50 Total Protein 7.2, Albumin 3.1 L, Calcium Level 9.7, Alkaline Phosphatase 159 H , Aspartate Amino Transf (AST/SGOT) 22, Alanine Aminotransferase (ALT/SGPT) 37, Total Bilirubin 0.3 The current plan is to vigorously hydrated her with saline. Her fingerstick blood sugar will be checked hourly. She will be given subcutaneous insulin hourly as needed for hyperglycemia greater than 250. I have given her a dose of metformin. Once we get her sugar to less than 250, she will be medically clear for psychiatric evaluation. So far, the patient has had 2 doses of insulin subcutaneous. The first dose was 10 units and the second dose was 11. She has had 3 L of fluid. Fingerstick blood sugar is now down in the 400 range. A second set of electrolytes is pending. Further decisions regarding IV fluids and electrolyte replacement will be made once the results of the electrolytes are known. I have ordered a third dose of subcutaneous insulin. We will continue to monitor her sugar hourly. BMP Diagram 07/08/17 18:50 Total Protein 7.2, Albumin 3.1 L, Calcium Level 9.7, Alkaline Phosphatase 159 H , Aspartate Amino Transf (AST/SGOT) 22, Alanine Aminotransferase (ALT/SGPT) 37, Total Bilirubin 0.3 07/08/17 23:20 Calcium Level 7.7 #L Electrolytes are improving. I have ordered replacement potassium as her potassium will likely continue to go down with insulin. I will give her one dose now and one dose of an hour. I suspect that she will be medically clear for psychiatric admission within the next hour or 2. Please see Lazaro Carrasquillo PA-C's note for results of laboratory and radiographic evaluation, ED course, final diagnosis and disposition Critical Care Narrative Aggregate critical care time was 45 minutes. Time to perform other separately billable procedures was not included in the critical care time. My time did not include minutes spent treating any other patients simultaneously or on activities that did not directly contribute to the patient's treatment. The services I provided to this patient were to treat and/or prevent clinically significant deterioration due to hyperglycemia I provided critical care services requiring my management, as noted below: Chart data review, documentation time, medication orders and management, vital sign assessments/reviewing monitor data, ordering and reviewing lab tests, ordering and interpreting/reviewing x-rays and diagnostic studies, care of the patient and discussion of the patient with the admitting physicians Diagnosis Primary Impression: Suicidal ideation Additional Impressions: Bipolar 1 disorder, depressed New onset type 2 diabetes mellitus Gracie Shen MD Jul 08, 2017 21:18
[2017-07-09] VITALS: BP 130/74; PULSE 100; RESP 18; O2SAT 99
[2017-07-09 00:03] LABS: BICARBONATE 27.1 MEQ/L (21.0-32.0); POTASSIUM 3.5 MEQ/L (3.5-5.1)
[2017-07-09] MEDS ORDERED: INSULIN HUMAN REGULAR 1,000 UNITS/10 ML VIAL SQ ONE (00:15)
[2017-07-09] MEDS ORDERED: POTASSIUM CHLORIDE 20 MEQ CONTROLLED RELEASE TAB PO ONE ×2 (00:30→01:30)
--- NOTE | 2017-07-09 03:05 | PD ---
Physical Exam Date Seen by Provider: Jul 09, 2017 Time Seen by Provider: 03:02 Data Data Last Documented VS Vital Signs Date Time Temp Pulse Resp B/P (MAP) Pulse Ox O2 Delivery O2 Flow Rate FiO2 07/09/17 00:00 100 18 130/74 (92) 99 07/08/17 19:32 97.9 Orders Orders Complete Blood Count With Diff (07/08/17 18:21) Comprehensive Metabolic Panel (07/08/17 18:21) Psych Screen (07/08/17 18:21) [place] (Li) (07/08/17 18:21) Drug Screen, Random Urine (07/08/17 18:21) Alcohol (Ethanol) (07/08/17 18:21) Salicylates (Aspirin) (07/08/17 18:21) Tylenol (Acetaminophen) (07/08/17 18:21) Insulin Human Regular Inj (Novolin R Inj (07/08/17 20:15) Iv Access Insert/Monitor (07/08/17 20:17) Sodium Chlor 0.9% 1000 Ml Inj (Ns 1000 M (07/08/17 20:17) Sodium Chlor 0.9% 1000 Ml Inj (Ns 1000 M (07/08/17 21:00) Sodium Chlor 0.9% 1000 Ml Inj (Ns 1000 M (07/08/17 21:00) Blood Glucose (07/08/17 20:58) Blood Glucose (07/08/17 21:58) Blood Glucose (07/08/17 22:58) Blood Glucose (07/08/17 23:58) Metformin (Glucophage) (07/08/17 21:15) Insulin Human Regular Inj (Novolin R Inj (07/08/17 22:30) Basic Metabolic Panel (Bmp) (07/08/17 23:10) Insulin Human Regular Inj (Novolin R Inj (07/09/17 00:15) Potassium Chloride (Kcl) (07/09/17 00:30) Potassium Chloride (Kcl) (07/09/17 01:30) Labs Laboratory Tests Test 07/08/17 18:50 07/08/17 19:25 07/08/17 23:20 White Blood Count 11.4 TH/MM3 Red Blood Count 4.55 MIL/MM3 Hemoglobin 14.1 GM/DL Hematocrit 41.9 % Mean Corpuscular Volume 92.2 FL Mean Corpuscular Hemoglobin 30.9 PG Mean Corpuscular Hemoglobin Concent 33.6 % Red Cell Distribution Width 13.4 % Platelet Count 274 TH/MM3 Mean Platelet Volume 9.9 FL Neutrophils (%) (Auto) 65.3 % Lymphocytes (%) (Auto) 22.9 % Monocytes (%) (Auto) 7.8 % Eosinophils (%) (Auto) 3.2 % Basophils (%) (Auto) 0.8 % Neutrophils # (Auto) 7.5 TH/MM3 Lymphocytes # (Auto) 2.6 TH/MM3 Monocytes # (Auto) 0.9 TH/MM3 Eosinophils # (Auto) 0.4 TH/MM3 Basophils # (Auto) 0.1 TH/MM3 CBC Comment DIFF FINAL Differential Comment Blood Urea Nitrogen 16 MG/DL 12 MG/DL Creatinine 1.17 MG/DL 1.04 MG/DL Random Glucose 767 MG/DL 490 MG/DL Total Protein 7.2 GM/DL Albumin 3.1 GM/DL Calcium Level 9.7 MG/DL 7.7 MG/DL Alkaline Phosphatase 159 U/L Aspartate Amino Transf (AST/SGOT) 22 U/L Alanine Aminotransferase (ALT/SGPT) 37 U/L Total Bilirubin 0.3 MG/DL Sodium Level 126 MEQ/L 134 MEQ/L Potassium Level 4.1 MEQ/L 3.5 MEQ/L Chloride Level 91 MEQ/L 100 MEQ/L Carbon Dioxide Level 20.6 MEQ/L 27.1 MEQ/L Anion Gap 14 MEQ/L 7 MEQ/L Estimat Glomerular Filtration Rate 49 ML/MIN 56 ML/MIN Salicylates Level 2.7 MG/DL Acetaminophen Level LESS THAN 2.0 MCG/ML [place] Level LESS THAN 0.1 MEQ/L Ethyl Alcohol Level LESS THAN 3 MG/DL Urine Opiates Screen NEG Urine Barbiturates Screen NEG Urine Amphetamines Screen NEG Urine Benzodiazepines Screen NEG Urine Cocaine Screen NEG Urine Cannabinoids Screen NEG [facility] Medical Record Reviewed: Yes Supervised Visit with ROHITH: Yes Interpretation(s) Laboratory Tests Test 07/08/17 18:50 07/08/17 19:25 07/08/17 23:20 White Blood Count 11.4 TH/MM3 Red Blood Count 4.55 MIL/MM3 Hemoglobin 14.1 GM/DL Hematocrit 41.9 % Mean Corpuscular Volume 92.2 FL Mean Corpuscular Hemoglobin 30.9 PG Mean Corpuscular Hemoglobin Concent 33.6 % Red Cell Distribution Width 13.4 % Platelet Count 274 TH/MM3 Mean Platelet Volume 9.9 FL Neutrophils (%) (Auto) 65.3 % Lymphocytes (%) (Auto) 22.9 % Monocytes (%) (Auto) 7.8 % Eosinophils (%) (Auto) 3.2 % Basophils (%) (Auto) 0.8 % Neutrophils # (Auto) 7.5 TH/MM3 Lymphocytes # (Auto) 2.6 TH/MM3 Monocytes # (Auto) 0.9 TH/MM3 Eosinophils # (Auto) 0.4 TH/MM3 Basophils # (Auto) 0.1 TH/MM3 CBC Comment DIFF FINAL Differential Comment Blood Urea Nitrogen 16 MG/DL 12 MG/DL Creatinine 1.17 MG/DL 1.04 MG/DL Random Glucose 767 MG/DL 490 MG/DL Total Protein 7.2 GM/DL Albumin 3.1 GM/DL Calcium Level 9.7 MG/DL 7.7 MG/DL Alkaline Phosphatase 159 U/L Aspartate Amino Transf (AST/SGOT) 22 U/L Alanine Aminotransferase (ALT/SGPT) 37 U/L Total Bilirubin 0.3 MG/DL Sodium Level 126 MEQ/L 134 MEQ/L Potassium Level 4.1 MEQ/L 3.5 MEQ/L Chloride Level 91 MEQ/L 100 MEQ/L Carbon Dioxide Level 20.6 MEQ/L 27.1 MEQ/L Anion Gap 14 MEQ/L 7 MEQ/L Estimat Glomerular Filtration Rate 49 ML/MIN 56 ML/MIN Salicylates Level 2.7 MG/DL Acetaminophen Level LESS THAN 2.0 MCG/ML [place] Level LESS THAN 0.1 MEQ/L Ethyl Alcohol Level LESS THAN 3 MG/DL Urine Opiates Screen NEG Urine Barbiturates Screen NEG Urine Amphetamines Screen NEG Urine Benzodiazepines Screen NEG Urine Cocaine Screen NEG Urine Cannabinoids Screen NEG Differential Diagnosis . Narrative Course This is a 51-year-old white female who is brought here under a Landa act and was diagnosed with new-onset diabetes. He attending earlier head started an IV and given her 3 L of normal saline, multiple doses of insulin as well as potassium. Her sugars have gradually come down. Her last Accu-Chek at 0300 was 282. At this point the patient's consider medically cleared to be admitted to the psych department. She will continue to have repeat Accu-Cheks and will have a medical consult for her new onset diabetes. Diagnosis Primary Impression: Suicidal ideation Additional Impressions: Bipolar 1 disorder, depressed New onset type 2 diabetes mellitus Condition: Evert Ocasio Jul 09, 2017 03:05
[2017-07-09 08:00] VITALS: BP 126/60; PULSE 84; RESP 16; TEMP 98; O2SAT 98
[2017-07-09] MEDS ORDERED: LORazepam 0.5 MG TAB PO PRN (08:45)
[2017-07-09] MEDS ORDERED: MAGNESIUM HYDROXIDE SUSP 30 ML CUP PO PRN (08:45)
[2017-07-09] MEDS ORDERED: LORazepam 2 MG/ML VIAL IM PRN ×2 (08:45)
[2017-07-09] MEDS ORDERED: ALUMINUM/MAGNESIUM/SIMETH 30 ML CUP PO PRN (08:45)
[2017-07-09] MEDS: NICOTINE 21 MG/24 HR PATCH T-DERMAL SCH (09:00)
[2017-07-09] MEDS: LITHIUM CARBONATE 300 MG TAB PO SCH ×2 (09:49→20:21)
[2017-07-09 10:35] VITALS: BP 140/77; PULSE 86; RESP 18; TEMP 98.6; O2SAT 98
[2017-07-09] MEDS ORDERED: DEXTROSE 50% IN WATER 50 ML VIAL(D50) IV PUSH PRN (13:30)
[2017-07-09] MEDS ORDERED: GLUCAGON 1 MG/ML VIAL OTHER PRN (13:30)
--- NOTE | 2017-07-09 13:46 | PD.CONS ---
HPI Service [facility] Hospitalists Consult Requested By Psychiatric services Reason for Consult Medical management Primary Care Physician No Primary Care Physician Diagnoses: History of Present Illness Written by Rosa M Smith, acting as scribe for Dr. Tijerina on 07/09/17 at 13: 31. This is a 51-year-old female with past medical history of bipolar disorder who presented to [facility] ED voluntarily for suicidal ideation. Reportedly, patient was taken off of lithium 6 months ago. Per ED note, patient's been progressively worsening with increasing depression and is felt suicidal for the past 2 days. Patient planned to overdose her mother's medication. Patient has been admitted to the inpatient psychiatric unit and Hospitalist services have been consulted for management of new onset diabetes. Patient was noted to have a blood sugar of 767 in the ED upon presentation. Patient seen and examined. Patient denies any personal or family medical history of diabetes. She she denies any thoughts of self-harm. She states that she's been excessively thirsty and urinating more for the past 3 weeks. Yesterday, she reports drinking 6 bottles of soda consisting of Dr. Dobbins, Sawyer Ramirezw and Coke. Patient reports "I didn't know it would hurt me". Patient does not have a primary care physician and states she's not been to see the doctor in over 30 years. She does endorse decreased vision. She also endorses weight gain. Her only complaint at present is that she is tired. Review of Systems Except as stated in HPI: all other systems reviewed are Neg Past Family Social History Allergies: Coded Allergies: chlorpromazine (Unverified Allergy, Severe, SOB, 07/08/17) fluphenazine (Unverified Allergy, Severe, 07/08/17) haloperidol (Unverified Allergy, Severe, 07/08/17) iodine (Unverified Allergy, Severe, HIVES, 07/08/17) olanzapine (Unverified Allergy, Severe, SOB, 07/08/17) potassium iodide (Unverified Allergy, Severe, HIVES, 07/08/17) povidone-iodine (Unverified Allergy, Severe, HIVES, 07/08/17) sodium iodide (Unverified Allergy, Severe, HIVES, 07/08/17) sodium iodide (Unverified Allergy, Severe, HIVES, 07/08/17) ziprasidone (Unverified Allergy, Severe, "SOB-TARDIVE DYSKINESIA", ) Sulfa (Sulfonamide Antibiotics) (Unverified Allergy, Mild, 07/08/17) lurasidone (Verified Allergy, Unknown, 07/08/17) shellfish derived (Unverified Allergy, Unknown, 07/08/17) Past Medical History Bipolar Depression Anxiety Past Surgical History Appendectomy Cholecystectomy Excision of cyst right ear Reported Medications Zyprexa (Olanzapine) 10 Mg Tab 10 Mg PO HS Paxil (Paroxetine HCl) 20 Mg Tablet 20 Mg PO DAILY Advil Pm (Ibuprofen-Diphenhydramine) 200-38 Mg Tab 1 Tab PO HS PRN Active Ordered Medications Current Medications Medications (Trade) Dose Ordered Sig/Omkar Route Start Time Stop Time Status Last Admin (Ativan) 1 mg Q6H PRN PO 07/09/17 08:45 (Ativan Inj) 1 mg Q6H PRN IM 07/09/17 08:45 (Tylenol) 650 mg Q4H PRN PO 07/09/17 08:45 (Milk Of Magnesia Liq) 30 ml DAILY PRN PO 07/09/17 08:45 (Mag-Al Plus Susp Liq) 30 ml Q6H PRN PO 07/09/17 08:45 (Habitrol 21 Mg Patch.24 Hr) 1 patch DAILY T-DERMAL 07/09/17 09:00 (Lithotabs) 300 mg Q12HR PO 07/09/17 09:00 07/09/17 09:49 Miscellaneous Information 1 HS T-DERMAL 07/09/17 21:00 (D50w (Vial) Inj) 50 ml UNSCH PRN IV PUSH 07/09/17 13:30 (Glucagon Inj) 1 mg UNSCH PRN OTHER 07/09/17 13:30 (NovoLOG SUPPLEMENTAL SCALE) 1 ACHS SLIDING SCALE SQ 07/09/17 17:00 Family History Obesity Patient denies any known family history of diabetes. Social History Patient denies any tobacco use, alcohol consumption or illicit drug use. Physical Exam Vital Signs Vital Signs Date Time Temp Pulse Resp B/P (MAP) Pulse Ox O2 Delivery O2 Flow Rate FiO2 07/09/17 10:35 98.6 86 18 140/77 (98) 98 07/09/17 10:18 07/09/17 08:00 98.0 84 16 126/60 (82) 98 Room Air 07/09/17 00:00 100 18 130/74 (92) 99 07/08/17 19:32 97.9 109 20 132/74 (93) 99 07/08/17 18:22 18 07/08/17 16:50 98.6 123 26 139/97 (111) 96 Physical Exam GENERAL: This is a well-nourished, well-developed obese patient, in no apparent distress. Awake and alert. SKIN: No rashes, ecchymoses or lesions. Warm and dry. HEAD: Atraumatic. Normocephalic. No temporal or scalp tenderness. EYES: Pupils equal round and reactive. Extraocular motions intact. No scleral icterus. No injection or drainage. ENT: Nose without bleeding or purulent drainage. Throat without erythema, tonsillar hypertrophy or exudate. Uvula midline. Airway patent. NECK: Trachea midline. No lymphadenopathy. Supple, nontender, no meningeal signs. CARDIOVASCULAR: Regular rate and rhythm without murmurs, gallops, or rubs. RESPIRATORY: Clear to auscultation. Breath sounds equal bilaterally. No wheezes , rales, or rhonchi. GASTROINTESTINAL: Abdomen soft, non-tender, nondistended. No hepato-splenomegaly , or palpable masses. No guarding. MUSCULOSKELETAL: Extremities without clubbing, cyanosis, or edema. No joint tenderness, effusion, or edema noted. No calf tenderness. NEUROLOGICAL: Awake and alert. Able to move all extremities. Nonfocal. Normal speech. Laboratory Laboratory Tests Test 07/08/17 18:50 07/08/17 19:25 07/08/17 23:20 White Blood Count 11.4 Red Blood Count 4.55 Hemoglobin 14.1 Hematocrit 41.9 Mean Corpuscular Volume 92.2 Mean Corpuscular Hemoglobin 30.9 Mean Corpuscular Hemoglobin Concent 33.6 Red Cell Distribution Width 13.4 Platelet Count 274 Mean Platelet Volume 9.9 Neutrophils (%) (Auto) 65.3 Lymphocytes (%) (Auto) 22.9 Monocytes (%) (Auto) 7.8 Eosinophils (%) (Auto) 3.2 Basophils (%) (Auto) 0.8 Neutrophils # (Auto) 7.5 Lymphocytes # (Auto) 2.6 Monocytes # (Auto) 0.9 Eosinophils # (Auto) 0.4 Basophils # (Auto) 0.1 CBC Comment DIFF FINAL Differential Comment Blood Urea Nitrogen 16 12 Creatinine 1.17 1.04 Random Glucose 767 490 Total Protein 7.2 Albumin 3.1 Calcium Level 9.7 7.7 Alkaline Phosphatase 159 Aspartate Amino Transf (AST/SGOT) 22 Alanine Aminotransferase (ALT/SGPT) 37 Total Bilirubin 0.3 Sodium Level 126 134 Potassium Level 4.1 3.5 Chloride Level 91 100 Carbon Dioxide Level 20.6 27.1 Anion Gap 14 7 Estimat Glomerular Filtration Rate 49 56 Salicylates Level 2.7 Acetaminophen Level LESS THAN 2.0 [place] Level LESS THAN 0.1 Ethyl Alcohol Level LESS THAN 3 Urine Opiates Screen NEG Urine Barbiturates Screen NEG Urine Amphetamines Screen NEG Urine Benzodiazepines Screen NEG Urine Cocaine Screen NEG Urine Cannabinoids Screen NEG Result Diagram: 07/08/17 1850 07/08/17 2320 Assessment and Plan Assessment and Plan 51-year-old female with past medical history of bipolar disorder who presented to [facility] ED voluntarily for suicidal ideation due to worsening depression after being taken off of lithium. Patient reports excessive thirst and increased urination for the past 3 weeks and while in the ED she was noted to have extremely high blood sugar of 767. Patient denies any reported history of diabetes. Hospitalist services have been consulted for medical management of new onset diabetes. Bipolar disorder Depression Suicidal ideation - Management per psychiatric team - Obtain TSH level New onset diabetes mellitus - Discussed with patient diagnosis. Recommended lifestyle modification to include regular exercise program and dietary changes. Advised patient she will need to schedule an appt with PCP as outpatient to continue monitor her diabetes and treatment. - Consult dietitian and life educator. - Unable to begin metformin at this time due to poor kidney function. Begin Levemir 5u BID. - Accu-Cheks with Insulin sliding scale as needed for coverage - Obtain a hemoglobin A1c - Diabetic diet Hyponatremia - Secondary to elevated blood sugars - Improving Leukocytosis - Mild, likely reactive - Patient is afebrile - monitor as indicated MOHIT - Creatinine improving - Baseline appears to be 0.9 - Avoid nephrotoxic agents - Encourage by mouth intake - Monitor BMP DVT prophylaxis - Patient is ambulatory This note was transcribed by scribsilver [Rosa M Smith]. I, Dr. Iftikhar Tijerina personally performed the history, physical exam, and medical decision making; and confirmed the accuracy of the information in the transcribed note. Authenticated by Dr. Iftikhar Tijerina on 07/09/17 at 1340. Discussed Condition With Patient Rosa M Smith Jul 09, 2017 13:46 Iftikhar Tijerina MD Jul 09, 2017 14:34
--- NOTE | 2017-07-09 14:04 | HHI.HP ---
Provisional Diagnosis Admission Date Jul 09, 2017 at 08:49 Diablo I. Bipolar disorder type I, depressive episode Diablo II. Deferred Diablo III. Diabetes Certification of Person's Competence To Provide Express and Informed Consent I have personally examined Herminia Delgadillo , a person being served at [facility] on, Jul 09, 2017 13:50. Express and informed consent means consent voluntarily given in writing, by a competent person, after sufficient explanation and disclosure of the subject matter involved to enable the person to make a knowing and willful decision without any element of force, fraud, deceit, duress, or other form of constraint or coercion. This person is 18 years of age or older, is not now known to be incompetent to consent to treatment with a guardian advocate, and does not have a health care surrogate or proxy currently making medical treatment decisions. I have found this person to be one of the following: [X] Competent to provide express and informed consent, as defined above, for voluntary admission to this facility and is competent to provide express and informed consent for treatment. He/she has the consistent capacity to make well reasoned, willful, and knowing decisions concerning his or her medical or mental health treatment. The person fully and consistently understands the purpose of the admission for examination/placement and is fully capable of personally exercising all rights assured [place] [] Incompetent to provide express and informed consent to voluntary admission, and this is incompetent to provide express and informed consent to treatment. The person must be transferred to involuntary status and a petition for a guardian advocate filed with the Circuit Court. [] Refusing to provide express and informed consent to voluntary admission but is competent to provide express and informed consent for treatment. The person must be discharged or transferred to involuntary status. Form shall be completed within 24 hours of a person's arrival at the receiving facility and filed in the clinical record of each person: 1. Admitted on a voluntary basis 2. Permitted to provide express and informed consent to his/her own treatment 3. Allowed to transfer from involuntary to voluntary status 4. Prior to permitting a person to consent to his or her own treatment after having been previously found incompetent to consent to treatment. History of Present Illness Capacity: Has Capacity HPI The patient is a 51-year-old woman, domicile with her mother, unemployed, single, supported by [facility], with psychiatric history of bipolar disorder, multiple psychiatric hospitalizations, last hospitalization was here in [place] in 2016, H&P at that moment was done by me, she has 2 previous suicidal attempts by overdoses, established outpatient care in [facility], she is on olanzapine 10mg and Paxil 20 mg, but she has been poorly compliant with medications, she has not significant medical history, who presents to the emergency Department voluntarily for suicidal ideation. On psychiatric evaluation patient is calm, cooperative, reports depression, poor motivation, very low mood every day, low level of concentration, poor appetite, no enjoying her life, and having frequent suicidal thoughts for the last months. Patient stated that since her lithium was discontinued due to high levels, about 6 months ago, her mood has been progressively worsening. She says that her current psychotropic regimen is not helpful and she has stopped her medications in the last weeks. She reports since that time she has had progressively worsening depression and feels suicidal the last 2 days. Her plan is to overdose on her mother's medications. He contracted for safety in the ER. Patient denies recent episodes of carloz, she denies psychotic symptoms, denies visual and auditory hallucinations. She is oriented 3, no confusion, no fluctuation of consciousness present. Patient denies alcohol and illicit drugs per Review of Systems Constitutional: DENIES: Diaphoretic episodes, Fatigue, Fever, Weight gain, Weight loss, Chills, Dizziness, Change in appetite, Night Sweats Endocrine: DENIES: Abnorml menstrual pattern, Heat/cold intolerance, Polydipsia , Polyuria, Polyphagia Eyes: DENIES: Blurred vision, Diplopia, Eye inflammation, Eye pain, Vision loss , Photosensitivity, Double Vision Ears, nose, mouth, throat: DENIES: Tinnitus, Hearing loss, Vertigo, Nasal discharge, Oral lesions, Throat pain, Hoarseness, Ear Pain, Running Nose, Epistaxis, Sinus Pain, Toothache, Odynophagia Respiratory: DENIES: Apneas, Cough, Snoring, Wheezing, Hemoptysis, Sputum production, Shortness of breath Cardiovascular: DENIES: Chest pain, Palpitations, Syncope, Dyspnea on Exertion , PND, Lower Extremity Edema, Orthopnea, Claudication Gastrointestinal: DENIES: Abdominal pain, Black stools, Bloody stools, Constipation, Diarrhea, Nausea, Vomiting, Difficulty Swallowing, Anorexia Genitourinary: DENIES: Abnormal vaginal bleeding, Dysmenorrhea, Dyspareunia, Sexual dysfunction, Urinary frequency, Urinary incontinence, Urgency, Hematuria , Dysuria, Nocturia, Vaginal discharge Musculoskeletal: DENIES: Joint pain, Muscle aches, Stiffness, Joint Swelling, Back pain, Neck pain Integumentary: DENIES: Abnormal pigmentation, Pruritus, Rash, Nail changes, Breast masses, Breast skin changes, Nipple discharge Hematologic/lymphatic: DENIES: Bruising, Lymphadenopathy Immunologic/allergic: DENIES: Eczema, Urticaria Neurologic: DENIES: Abnormal gait, Headache, Localized weakness, Paresthesias, Seizures, Speech Problems, Tremor, Poor Balance Psychiatric: COMPLAINS OF: Depression, Suicidal Ideation Substance Abuse History Drugs/Alcohol past 12 months She denies the use of alcohol and illicit drugs Past Family Social History Coded Allergies: chlorpromazine (Unverified Allergy, Severe, SOB, 07/08/17) fluphenazine (Unverified Allergy, Severe, 07/08/17) haloperidol (Unverified Allergy, Severe, 07/08/17) iodine (Unverified Allergy, Severe, HIVES, 07/08/17) olanzapine (Unverified Allergy, Severe, SOB, 07/08/17) potassium iodide (Unverified Allergy, Severe, HIVES, 07/08/17) povidone-iodine (Unverified Allergy, Severe, HIVES, 07/08/17) sodium iodide (Unverified Allergy, Severe, HIVES, 07/08/17) sodium iodide (Unverified Allergy, Severe, HIVES, 07/08/17) ziprasidone (Unverified Allergy, Severe, "SOB-TARDIVE DYSKINESIA", ) Sulfa (Sulfonamide Antibiotics) (Unverified Allergy, Mild, 07/08/17) lurasidone (Verified Allergy, Unknown, 07/08/17) shellfish derived (Unverified Allergy, Unknown, 07/08/17) Reported Medications Olanzapine (Zyprexa) 10 Mg Tab, 10 MG PO HS, #30 TAB 0 Refills 07/08/17 Paroxetine HCl (Paxil) 20 Mg Tablet, 20 MG PO DAILY 07/08/17 Ibuprofen-Diphenhydramine (Advil Pm) 200-38 Mg Tab, 1 TAB PO HS Y for PAIN/SLEEP , TAB 0 Refills 09/24/16 Discontinued Scripts Soham Carbonate ER (Soham Carbonate ER) 450 Mg Tab, 450 MG PO BIDPC for mood swings for 10 Days, TAB 1 Refill Prov:Rayo Merrill MD 10/01/16 Paliperidone Palmitate Inj (Invega Sustenna Inj) 117 Mg/0.75 Ml Inj, 117 MG IM Q28D for Mental Health, #1 VIAL 0 Refills Next dose of Invega Sustenna due on 09/29/2016. Prov:Low Hung MD 09/03/16 Current Medications Medications (Trade) Dose Ordered Sig/Omkar Route Start Time Stop Time Status Last Admin (Ativan) 1 mg Q6H PRN PO 07/09/17 08:45 (Ativan Inj) 1 mg Q6H PRN IM 07/09/17 08:45 (Tylenol) 650 mg Q4H PRN PO 07/09/17 08:45 (Milk Of Magnesia Liq) 30 ml DAILY PRN PO 07/09/17 08:45 (Mag-Al Plus Susp Liq) 30 ml Q6H PRN PO 07/09/17 08:45 (Habitrol 21 Mg Patch.24 Hr) 1 patch DAILY T-DERMAL 07/09/17 09:00 (Lithotabs) 300 mg Q12HR PO 07/09/17 09:00 07/09/17 09:49 Miscellaneous Information 1 HS T-DERMAL 07/09/17 21:00 (D50w (Vial) Inj) 50 ml UNSCH PRN IV PUSH 07/09/17 13:30 (Glucagon Inj) 1 mg UNSCH PRN OTHER 07/09/17 13:30 (NovoLOG SUPPLEMENTAL SCALE) 1 ACHS SLIDING SCALE SQ 07/09/17 17:00 Physical Exam No psychomotor agitation or retardation, no restlessness, no tremors, no EPS, no gait disturbance present Vital Signs Vital Signs Date Time Temp Pulse Resp B/P (MAP) Pulse Ox O2 Delivery O2 Flow Rate FiO2 07/09/17 10:35 98.6 86 18 140/77 (98) 98 07/09/17 08:00 Room Air I/O 07/09/17 07/09/17 07/10/17 08:00 16:00 00:00 Intake Total 1000 ml Balance 1000 ml Lab Results Test 07/08/17 18:50 07/08/17 19:25 07/08/17 23:20 White Blood Count 11.4 TH/MM3 Red Blood Count 4.55 MIL/MM3 Hemoglobin 14.1 GM/DL Hematocrit 41.9 % Mean Corpuscular Volume 92.2 FL Mean Corpuscular Hemoglobin 30.9 PG Mean Corpuscular Hemoglobin Concent 33.6 % Red Cell Distribution Width 13.4 % Platelet Count 274 TH/MM3 Mean Platelet Volume 9.9 FL Neutrophils (%) (Auto) 65.3 % Lymphocytes (%) (Auto) 22.9 % Monocytes (%) (Auto) 7.8 % Eosinophils (%) (Auto) 3.2 % Basophils (%) (Auto) 0.8 % Neutrophils # (Auto) 7.5 TH/MM3 Lymphocytes # (Auto) 2.6 TH/MM3 Monocytes # (Auto) 0.9 TH/MM3 Eosinophils # (Auto) 0.4 TH/MM3 Basophils # (Auto) 0.1 TH/MM3 CBC Comment DIFF FINAL Differential Comment Blood Urea Nitrogen 16 MG/DL 12 MG/DL Creatinine 1.17 MG/DL 1.04 MG/DL Random Glucose 767 MG/DL 490 MG/DL Total Protein 7.2 GM/DL Albumin 3.1 GM/DL Calcium Level 9.7 MG/DL 7.7 MG/DL Alkaline Phosphatase 159 U/L Aspartate Amino Transf (AST/SGOT) 22 U/L Alanine Aminotransferase (ALT/SGPT) 37 U/L Total Bilirubin 0.3 MG/DL Sodium Level 126 MEQ/L 134 MEQ/L Potassium Level 4.1 MEQ/L 3.5 MEQ/L Chloride Level 91 MEQ/L 100 MEQ/L Carbon Dioxide Level 20.6 MEQ/L 27.1 MEQ/L Anion Gap 14 MEQ/L 7 MEQ/L Estimat Glomerular Filtration Rate 49 ML/MIN 56 ML/MIN Salicylates Level 2.7 MG/DL Acetaminophen Level LESS THAN 2.0 MCG/ML Soham Level LESS THAN 0.1 MEQ/L Ethyl Alcohol Level LESS THAN 3 MG/DL Urine Opiates Screen NEG Urine Barbiturates Screen NEG Urine Amphetamines Screen NEG Urine Benzodiazepines Screen NEG Urine Cocaine Screen NEG Urine Cannabinoids Screen NEG Mental Status Examination Appearance: Appropriate Consciousness: Alert Orientation: x4 Motor Activity: Normal gait Speech: Unremarkable Language: Adequate Fund of Knowledge: Adequate Attention and Concentration: Adequate Memory: Unremarkable Mood: Sad Affect: Blunt, Other (dysthymic) Thought Process & Associations: Intact Thought Content: Appropriate Hallucination Type: None Delusion Type: None Suicidal Ideation: Yes Suicidal Plan: Yes Suicidal Intention: No Homicidal Ideation: No Homicidal Plan: No Homicidal Intention: No Insight: Adequate Judgment: Adequate Assessment & Plan Problem List: (1) Bipolar 1 disorder, depressed ICD Codes: F31.9 - Bipolar 1 disorder, depressed Status: Acute Assessment & Plan: Patient on psychiatric evaluation presents with reported progressive symptomatology of depression since lithium was discontinued about 6 months ago. Patient stated that for the last 2 weeks she has been feeling increasingly suicidal, with lack of motivation, low level of energy, hopelessness, helplessness, no enjoying her usual activities, poor sleep. No manic behavior are visible at this moment. Patient reports the current psychotropic regimen of olanzapine 10 mg and Paxil 20 mg is not working and she has stopped taking it. She was able to contract for safety in the ER. She seems to be insightful of her depression, she wants to get better and is in agreement with a voluntary admission for stabilization and safety. I will restart lithium 300 mg twice a day for bipolar depression. We'll order EKG for baseline QTC, also order TSH. BMP was reviewed. In her arrival in the ER her glucose was in the 600s, no controlled, but we will consult hospitalist for further management. hospice social worker intervention for psychosocial assessment, collateral information, individual and group therapies, to coordinating a safe discharge. States he support, motivation and psychoeducation provided. Transfer the patient to the 2600 unit. Assessment & Plan Estimated LOS: days Bassam Engle MD Jul 09, 2017 14:04
--- NOTE | 2017-07-09 14:52 | EKG ---
Date Performed: 07/09/2017 Time Performed: 09:21:28 PTAGE: 51 years EKG: Sinus rhythm WITH FIRST DEGREE AV BLOCK RSR prime in leads V1 and V2 ABNORMAL ECG No significant change from prio r electrocardiogram. PREVIOUS TRACING : 09/02/2015 08.48 DOCTOR: Raffaele Amaral Interpretating Date/Time 07/09/2017 14:51:27
[2017-07-09] MEDS: INSULIN ASPART SUPPLEMENTAL SCALE SQ SCH ×2 (16:25→20:22)
[2017-07-09] MEDS: LORazepam 1 MG TAB PO PRN ×2 (17:16→23:11)
[2017-07-09 18:00] VITALS: BP 111/67; PULSE 73; RESP 18; TEMP 98.7; O2SAT 100
[2017-07-09 18:49] LABS: ALKALINE PHOSPHATASE 133 U/L (45-117); ALT (GPT) 42 U/L (10-53); ANION GAP 8 MEQ/L (5-15); AST (GOT) 41 U/L (15-37); BICARBONATE 23.9 MEQ/L (21.0-32.0); BLOOD UREA NITROGEN 10 MG/DL (7-18); CHLORIDE 103 MEQ/L (98-107); GLOMERULAR FILTRATION RATE 57 ML/MIN (>89); POTASSIUM 4.8 MEQ/L (3.5-5.1); SODIUM (NA) 135 MEQ/L (136-145); TOTAL BILIRUBIN ADULT 0.3 MG/DL (0.2-1.0)
[2017-07-09] MEDS: REMOVE OLD NICODERM (NICOTINE) PATCH T-DERMAL SCH (20:22)
[2017-07-09] MEDS ORDERED: INSULIN DETEMIR 100 UNITS/ML VIAL SQ SCH (21:00)
[2017-07-10] MEDS ORDERED: INSULIN ASPART 1,000 UNITS/10 ML VIAL SQ ONE (03:15)
[2017-07-10 05:42] VITALS: BP 130/72; PULSE 91; RESP 16; TEMP 98; O2SAT 95
[2017-07-10] MEDS: INSULIN ASPART SUPPLEMENTAL SCALE SQ SCH ×4 (07:52→21:09)
[2017-07-10] MEDS: LORazepam 1 MG TAB PO PRN ×2 (07:53→21:50)
[2017-07-10] MEDS: ACETAMINOPHEN 325 MG TAB PO PRN ×2 (07:54→21:50)
[2017-07-10 08:30] VITALS: BP 110/68
[2017-07-10 08:34] VITALS: BP 108/62
[2017-07-10 08:35] VITALS: BP 106/66
[2017-07-10] MEDS: NICOTINE 21 MG/24 HR PATCH T-DERMAL SCH (08:55)
[2017-07-10] MEDS: LITHIUM CARBONATE 300 MG TAB PO SCH ×2 (08:56→21:10)
[2017-07-10] MEDS: INSULIN DETEMIR 100 UNITS/ML VIAL SQ SCH ×2 (08:58→21:10)
--- NOTE | 2017-07-10 15:00 | HHI.PR ---
Subjective Remarks Follow-up on patient with newly diagnosed diabetes. Patient seen and examined. [facility] due to elevated blood sugars. Patient sleeping in her hospital bed. He easily awakens to voice. Patient denies any complaints at present. States she is hungry and would like a snack. Objective Vitals Vital Signs Date Time Temp Pulse Resp B/P (MAP) Pulse Ox O2 Delivery O2 Flow Rate FiO2 07/10/17 08:35 106/66 (79) 07/10/17 08:34 108/62 (77) 07/10/17 08:30 110/68 (82) 07/10/17 05:42 98.0 91 16 130/72 (91) 95 07/09/17 18:00 98.7 73 18 111/67 (82) 100 I/O 07/09/17 07/09/17 07/09/17 07/10/17 07/10/17 07/10/17 07:00 15:00 23:00 07:00 15:00 23:00 Intake Total 1000 ml Balance 1000 ml Intake IV Total 1000 ml # Sanitary Pads 1 Pads 1 Pads Result Diagram: 07/08/17184907/09/17 5722 Objective Remarks GENERAL: This is a well-nourished, well-developed obese patient, in no apparent distress. Lying in hospital bed. Sleepy. SKIN: Warm and dry. Multiple tattoos noted. HEAD: Atraumatic. Normocephalic. EYES: Extraocular motions intact. No scleral icterus. No injection or drainage. ENT: Nose without bleeding or purulent drainage. Airway patent. NECK: Trachea midline. CARDIOVASCULAR: Regular rate and rhythm without murmurs, gallops, or rubs. RESPIRATORY: Clear to auscultation. Breath sounds equal bilaterally. No wheezes , rales, or rhonchi. GASTROINTESTINAL: Abdomen soft, non-tender, nondistended. MUSCULOSKELETAL: Extremities without clubbing, cyanosis, or edema. NEUROLOGICAL: Awake, lethargic. Able to move all extremities. Nonfocal. Normal speech. Medications and IVs Current Medications Medications (Trade) Dose Ordered Sig/Omkar Route Start Time Stop Time Status Last Admin (Ativan) 1 mg Q6H PRN PO 07/09/17 08:45 07/10/17 07:53 (Ativan Inj) 1 mg Q6H PRN IM 07/09/17 08:45 (Tylenol) 650 mg Q4H PRN PO 07/09/17 08:45 07/10/17 07:54 (Milk Of Magnesia Liq) 30 ml DAILY PRN PO 07/09/17 08:45 (Mag-Al Plus Susp Liq) 30 ml Q6H PRN PO 07/09/17 08:45 (Habitrol 21 Mg Patch.24 Hr) 1 patch DAILY T-DERMAL 07/09/17 09:00 (Lithotabs) 300 mg Q12HR PO 07/09/17 09:00 07/10/17 08:56 Miscellaneous Information 1 HS T-DERMAL 07/09/17 21:00 (D50w (Vial) Inj) 50 ml UNSCH PRN IV PUSH 07/09/17 13:30 (Glucagon Inj) 1 mg UNSCH PRN OTHER 07/09/17 13:30 (NovoLOG SUPPLEMENTAL SCALE) 1 ACHS SLIDING SCALE SQ 07/09/17 17:00 07/10/17 11:24 (Levemir Inj) 10 units Q12HR SQ 07/10/17 09:00 07/10/17 08:58 A/P Assessment and Plan 51-year-old female with past medical history of bipolar disorder who presented to [facility] ED voluntarily for suicidal ideation due to worsening depression after being taken off of lithium. Patient reports excessive thirst and increased urination for the past 3 weeks and while in the ED she was noted to have extremely high blood sugar of 767. Patient denies any reported history of diabetes. Hospitalist services have been consulted for medical management of new onset diabetes. Bipolar disorder Depression Suicidal ideation - Management per psychiatric team - Obtain TSH level - ordered for 6am but not drawn New onset diabetes mellitus - Discussed with patient diagnosis. Recommended lifestyle modification to include regular exercise program and dietary changes. Advised patient she will need to schedule an appt with PCP as outpatient to continue monitor her diabetes and treatment. - Consult dietitian and clinical nurse educator. - Unable to begin metformin at this time due to poor kidney function. - Still with elevated blood sugars. Increase Levemir 10 units twice a day - Accu-Cheks with Insulin sliding scale as needed for coverage - hemoglobin A1c pending - Diabetic diet Hyponatremia - Secondary to elevated blood sugars - Improving Leukocytosis - Mild, likely reactive - Patient is afebrile - monitor as indicated MOHIT - Creatinine continues to improve - Baseline appears to be 0.9 - Avoid nephrotoxic agents - Encourage by mouth intake - Monitor BMP DVT prophylaxis - Patient is ambulatory Discussed with patient, Henry JENKINS and Rosa M Willoughby Jul 10, 2017 15:00
[2017-07-10 17:11] VITALS: BP 108/51; PULSE 83; RESP 15; TEMP 96.6; O2SAT 99
--- NOTE | 2017-07-10 18:01 | HHI.PYPN ---
Subjective Remarks Patient was seen and case discussed with nursing. Patient feels "scared" because she thinks she will from her diabetes. Psychoeducation done about diabetes and pt is relieved it is a chronic disease. She is tolerating her lithium well with no SE. Mood is "better." Denies suicidal ideation thoughts intent or plan. BS have improved to the 300s. Continues to be monitored by the medical team Mental Status Examination Appearance: Appropriate Consciousness: Alert Orientation: x4 Motor Activity: Normal gait Speech: Unremarkable Language: Adequate Fund of Knowledge: Adequate Attention and Concentration: Adequate Memory: Unremarkable Mood: Sad, Other ("scared") Affect: Anxious Thought Process & Associations: Intact Thought Content: Appropriate Hallucination Type: None Delusion Type: None Suicidal Ideation: No Suicidal Plan: No Suicidal Intention: No Homicidal Ideation: No Homicidal Plan: No Homicidal Intention: No Insight: Adequate Judgment: Adequate Results Labs Test 07/10/17 16:56 Vitals/IOs Vital Signs Date Time Temp Pulse Resp B/P (MAP) Pulse Ox O2 Delivery O2 Flow Rate FiO2 07/10/17 17:11 96.6 83 15 108/51 (70) 99 07/09/17 08:00 Room Air Assessment & Plan Problem List: (1) Bipolar 1 disorder, depressed ICD Codes: F31.9 - Bipolar 1 disorder, depressed Status: Acute Assessment & Plan Continue medical treatment as indicated, lithium level next week. Justification for Cont. Inpt. Pt would decompensate in a less restrictive setting Rishi Fleming DO Jul 10, 2017 18:01
[2017-07-10 18:36] LABS: BICARBONATE 27.2 MEQ/L (21.0-32.0); POTASSIUM 3.6 MEQ/L (3.5-5.1)
[2017-07-10 18:41] LABS: HDL CHOLESTEROL 35.7 MG/DL (40.0-60.0)
[2017-07-10] MEDS: REMOVE OLD NICODERM (NICOTINE) PATCH T-DERMAL SCH (21:00)
[2017-07-11 05:58] VITALS: BP 99/59; PULSE 78; RESP 18; TEMP 96.1; O2SAT 99
[2017-07-11] MEDS: INSULIN ASPART SUPPLEMENTAL SCALE SQ SCH ×4 (08:00→20:48)
[2017-07-11] MEDS: LITHIUM CARBONATE 300 MG TAB PO SCH ×2 (08:23→20:47)
[2017-07-11] MEDS: INSULIN DETEMIR 100 UNITS/ML VIAL SQ SCH ×2 (08:23→20:48)
[2017-07-11] MEDS: ACETAMINOPHEN 325 MG TAB PO PRN ×2 (08:24→20:48)
[2017-07-11] MEDS: NICOTINE 21 MG/24 HR PATCH T-DERMAL SCH (09:00)
[2017-07-11] MEDS: REMOVE OLD NICODERM (NICOTINE) PATCH T-DERMAL SCH (10:14)
[2017-07-11 16:07] VITALS: BP 104/58; PULSE 85; RESP 17; TEMP 97.7; O2SAT 96
--- NOTE | 2017-07-11 16:14 | HHI.PYPN ---
Subjective Remarks The patient was seen today for psychiatric reevaluation, patient is calm, cooperative, reports symptoms of depression, low energy, sadness, low concentration, but denies hopelessness, denies helplessness, denies suicidal and homicidal ideation. Patient reports that she has this kind of episodes of depression when she is not in lithium. Patient is oriented 3, no fluctuation of consciousness present. She is compliant with medications, no significant side effects to the moment. Review of Systems Except as stated in HPI: all other systems reviewed are Neg Mental Status Examination Appearance: Appropriate Consciousness: Alert Orientation: x4 Motor Activity: Normal gait Speech: Unremarkable Language: Adequate Fund of Knowledge: Adequate Attention and Concentration: Adequate Memory: Unremarkable Mood: Sad, Other ("scared") Affect: Anxious Thought Process & Associations: Intact Thought Content: Appropriate Hallucination Type: None Delusion Type: None Suicidal Ideation: No Suicidal Plan: No Suicidal Intention: No Homicidal Ideation: No Homicidal Plan: No Homicidal Intention: No Insight: Adequate Judgment: Adequate Results Labs Test 07/10/17 16:56 Blood Urea Nitrogen 11 MG/DL Creatinine 0.88 MG/DL Random Glucose 311 MG/DL Calcium Level 8.9 MG/DL Sodium Level 136 MEQ/L Potassium Level 3.6 MEQ/L Chloride Level 101 MEQ/L Carbon Dioxide Level 27.2 MEQ/L Anion Gap 8 MEQ/L Estimat Glomerular Filtration Rate 68 ML/MIN Triglycerides Level 355 MG/DL Cholesterol Level 327 MG/DL LDL Cholesterol 220 MG/DL HDL Cholesterol 35.7 MG/DL Cholesterol/HDL Ratio 9.15 RATIO Thyroid Stimulating Hormone 3rd Gen 1.100 uIU/ML Vitals/IOs Vital Signs Date Time Temp Pulse Resp B/P (MAP) Pulse Ox O2 Delivery O2 Flow Rate FiO2 07/11/17 16:07 97.7 85 17 104/58 (73) 96 07/09/17 08:00 Room Air Intake and Output 07/11/17 07/11/17 07/12/17 08:00 16:00 00:00 Intake Total 240 ml 1680 ml Balance 240 ml 1680 ml Assessment & Plan Problem List: (1) Bipolar 1 disorder, depressed ICD Codes: F31.9 - Bipolar 1 disorder, depressed Status: Acute Assessment & Plan: We will increase lithium to 600 mg daily. Hospitalist recommendations appreciated. Labs reviewed. Assessment & Plan Estimated LOS: days Justification for Cont. Inpt. She has an levator risk to decompensate at a lower level of care. Bassam Engle MD Jul 11, 2017 16:14
--- NOTE | 2017-07-11 16:31 | HHI.PR ---
Subjective Remarks Patient states she is feeling better. Blood glucose uncontrolled. Abnormal lipid profile. Objective Vitals Vital Signs Date Time Temp Pulse Resp B/P (MAP) Pulse Ox O2 Delivery O2 Flow Rate FiO2 07/11/17 16:07 97.7 85 17 104/58 (73) 96 07/11/17 05:58 96.1 78 18 99/59 (72) 99 07/10/17 17:11 96.6 83 15 108/51 (70) 99 I/O 07/10/17 07/10/17 07/10/17 07/11/17 07/11/17 07/11/17 06:59 14:59 22:59 06:59 14:59 22:59 Intake Total 1080 ml 240 ml 1680 ml Balance 1080 ml 240 ml 1680 ml Intake Oral 1080 ml 240 ml 1680 ml # Voids 2 2 # Sanitary Pads 1 Pads 1 Pads 0 Pads 1 Pads Result Diagram: 07/08/17 1850 07/10/17 1656 Objective Remarks GENERAL: This is a well-nourished, well-developed obese patient, in no apparent distress. CARDIOVASCULAR: Regular rate and rhythm without murmurs, gallops, or rubs. RESPIRATORY: Clear to auscultation. Breath sounds equal bilaterally. No wheezes , rales, or rhonchi. GASTROINTESTINAL: Abdomen soft, non-tender, nondistended. MUSCULOSKELETAL: Extremities without clubbing, cyanosis, or edema. A/P Assessment and Plan 51-year-old female with past medical history of bipolar disorder who presented to [facility] ED voluntarily for suicidal ideation due to worsening depression after being taken off of lithium. Patient reports excessive thirst and increased urination for the past 3 weeks and while in the ED she was noted to have extremely high blood sugar of 767. Patient denies any reported history of diabetes. Hospitalist services have been consulted for medical management of new onset diabetes. Bipolar disorder Depression Suicidal ideation - Management per psychiatric team - TSH ok. New onset diabetes mellitus - Discussed with patient diagnosis. Recommended lifestyle modification to include regular exercise program and dietary changes. Advised patient she will need to schedule an appt with PCP as outpatient to continue monitor her diabetes and treatment. - Consult dietitian and floor coverings installer. - Unable to begin metformin at this time due to poor kidney function. - Still with elevated blood sugars. Increase Levemir 15 units twice a day. Add pre meal insulin Novolog 5 units TID - Accu-Cheks with Insulin sliding scale as needed for coverage - hemoglobin A1c 18.2 - Diabetic diet Hyperlipidemia: - Start statin. Hyponatremia - Secondary to elevated blood sugars - Improving Leukocytosis - Mild, likely reactive - Patient is afebrile - monitor as indicated Vaginal candidiasis: Give one dose of Fluconazole. MOHIT - Creatinine continues to improve - Baseline Cr appears to be 0.9 - Avoid nephrotoxic agents - Encourage by mouth intake - Monitor BMP DVT prophylaxis - Patient is ambulatory Iftihkar Tijerina MD Jul 11, 2017 16:31
[2017-07-11] MEDS ORDERED: FLUCONAZOLE 100 MG TAB PO ONE (16:45)
[2017-07-11] MEDS ORDERED: PILL SPLITTER OTHER PRN (17:00)
[2017-07-11] MEDS: INSULIN ASPART 1,000 UNITS/10 ML VIAL SQ SCH (17:00)
[2017-07-11 17:34] LABS: HEMOGLOBIN A1a 2.2 %; HEMOGLOBIN A1b 1.5 %; HEMOGLOBIN Ao 67.4 %; HEMOGLOBIN F 2.8 %; HEMOGLOBIN LA1C 2.7 %
[2017-07-11] MEDS: LORazepam 1 MG TAB PO PRN (20:47)
[2017-07-11] MEDS: ATORVASTATIN 40 MG TAB PO SCH (20:47)
[2017-07-12 05:36] VITALS: BP 98/55; PULSE 82; RESP 16; TEMP 96.8; O2SAT 94
[2017-07-12] MEDS: INSULIN ASPART 1,000 UNITS/10 ML VIAL SQ SCH ×3 (08:00→17:00)
[2017-07-12] MEDS: INSULIN ASPART SUPPLEMENTAL SCALE SQ SCH ×4 (08:00→21:45)
[2017-07-12] MEDS: LITHIUM CARBONATE 300 MG TAB PO SCH ×2 (08:15→21:44)
[2017-07-12] MEDS: INSULIN DETEMIR 100 UNITS/ML VIAL SQ SCH ×2 (08:25→21:44)
[2017-07-12] MEDS: NICOTINE 21 MG/24 HR PATCH T-DERMAL SCH (08:37)
--- NOTE | 2017-07-12 14:00 | HHI.PYPN ---
Subjective Remarks Patient was seen today for psychiatric reevaluation, patient is found in her bed , she reports improved mood, still feeling a little bit down, difficult for her to get out of bed, difficult to avoid negative thoughts, but denies suicidal and homicidal ideation, denies visual and auditory hallucinations. Compliant with her lithium, no significant side effects at this moment. History, no fluctuation of consciousness. Review of Systems Except as stated in HPI: all other systems reviewed are Neg Mental Status Examination Appearance: Appropriate Consciousness: Alert Orientation: x4 Motor Activity: Normal gait Speech: Unremarkable Language: Adequate Fund of Knowledge: Adequate Attention and Concentration: Adequate Memory: Unremarkable Mood: Sad, Other ("scared") Affect: Anxious Thought Process & Associations: Intact Thought Content: Appropriate Hallucination Type: None Delusion Type: None Suicidal Ideation: No Suicidal Plan: No Suicidal Intention: No Homicidal Ideation: No Homicidal Plan: No Homicidal Intention: No Insight: Adequate Judgment: Adequate Results Vitals/IOs Vital Signs Date Time Temp Pulse Resp B/P (MAP) Pulse Ox O2 Delivery O2 Flow Rate FiO2 07/12/17 05:36 96.8 82 16 98/55 (69) 94 07/09/17 08:00 Room Air Intake and Output 07/12/17 07/12/17 07/13/17 08:00 16:00 00:00 Intake Total 240 ml 240 ml Balance 240 ml 240 ml Assessment & Plan Problem List: (1) Bipolar 1 disorder, depressed ICD Codes: F31.9 - Bipolar 1 disorder, depressed Status: Acute Assessment & Plan Estimated LOS: days Justification for Cont. Inpt. Patient will continue psychiatric hospitalization for stabilization of depressive symptoms, will order lithium levels. Bassam Engle MD Jul 12, 2017 14:00
--- NOTE | 2017-07-12 16:21 | HHI.PR ---
Subjective Remarks Patient reports she is doing ok. She complained of recurrence of Bacterial vaginosis which she reports she was recently treated for it with Flagyl but symptoms have returned. C/O thin discharge with "spoil meat" odor. Some itching. Objective Vitals Vital Signs Date Time Temp Pulse Resp B/P (MAP) Pulse Ox O2 Delivery O2 Flow Rate FiO2 07/12/17 05:36 96.8 82 16 98/55 (69 94 I/O 07/11/17 07/11/17 07/11/17 07/12/17 07/12/17 07/12/17 07:00 15:00 23:00 07:00 15:00 23:00 Intake Total 240 ml 1680 ml 1080 ml 960 ml Balance 240 ml 1680 ml 1080 ml 960 ml Intake Oral 240 ml 1680 ml 1080 ml 960 ml # Voids 2 5 # Sanitary Pads 1 Pads 0 Pads 1 Pads 1 Pads 1 Pads Result Diagram: 07/08/17 1850 07/10/17 1226 Objective Remarks GENERAL: This is a well-nourished, well-developed obese patient, in no apparent distress. CARDIOVASCULAR: Regular rate and rhythm without murmurs, gallops, or rubs. RESPIRATORY: Clear to auscultation. Breath sounds equal bilaterally. No wheezes , rales, or rhonchi. GASTROINTESTINAL: Abdomen soft, non-tender, nondistended. MUSCULOSKELETAL: Extremities without clubbing, cyanosis, or edema. A/P Assessment and Plan 51-year-old female with past medical history of bipolar disorder who presented to [facility] ED voluntarily for suicidal ideation due to worsening depression after being taken off of lithium. Patient reports excessive thirst and increased urination for the past 3 weeks and while in the ED she was noted to have extremely high blood sugar of 767. Patient denies any reported history of diabetes. Hospitalist services have been consulted for medical management of new onset diabetes. Bipolar disorder Depression Suicidal ideation - Management per psychiatric team - TSH ok. New onset diabetes mellitus - Discussed with patient diagnosis. Recommended lifestyle modification to include regular exercise program and dietary changes. Advised patient she will need to schedule an appt with PCP as outpatient to continue monitor her diabetes and treatment. - Consult dietitian and parent educator. - Unable to begin metformin at this time due to poor kidney function. - Still with elevated blood sugars. Increase Levemir 25 units twice a day. Increase pre meal insulin Novolog 7 units TID - Accu-Cheks with Insulin sliding scale as needed for coverage - hemoglobin A1c 18.2 - Diabetic diet Hyperlipidemia: - Started on statin. Hyponatremia - Secondary to elevated blood sugars - Improving Leukocytosis - Mild, likely reactive - Patient is afebrile - monitor as indicated Probable BV: Previously treated with Flagyl, ?recurrence -Given that any infections may cause BG to be more elevated, will empirically treat with Clindamycin and follow progress. MOHIT - Creatinine continues to improve - Baseline Cr appears to be 0.9 - Avoid nephrotoxic agents - Encourage by mouth intake - Monitor BMP DVT prophylaxis - Patient is ambulatory Discharge Planning Per Primary, will need close outpatient follow up for further titration of diabetes meds. Iftikhar Tijerina MD Jul 12, 2017 16:21
[2017-07-12 18:13] VITALS: BP 93/44; PULSE 88; RESP 15; TEMP 98.5; O2SAT 97
[2017-07-12] MEDS: REMOVE OLD NICODERM (NICOTINE) PATCH T-DERMAL SCH (21:00)
[2017-07-12] MEDS: CLINDAMYCIN 150 MG CAP PO SCH (21:43)
[2017-07-12] MEDS: ATORVASTATIN 40 MG TAB PO SCH (21:44)
[2017-07-12] MEDS: LORazepam 1 MG TAB PO PRN (21:51)
[2017-07-13 06:11] VITALS: BP 131/63; PULSE 88; RESP 16; TEMP 97.3; O2SAT 95
[2017-07-13] MEDS: INSULIN ASPART 1,000 UNITS/10 ML VIAL SQ SCH ×3 (08:00→17:04)
[2017-07-13] MEDS: INSULIN ASPART SUPPLEMENTAL SCALE SQ SCH ×4 (08:00→20:46)
[2017-07-13] MEDS: CLINDAMYCIN 150 MG CAP PO SCH ×2 (10:00→20:52)
[2017-07-13] MEDS: NICOTINE 21 MG/24 HR PATCH T-DERMAL SCH (10:00)
[2017-07-13] MEDS: INSULIN DETEMIR 100 UNITS/ML VIAL SQ SCH ×2 (10:00→20:45)
[2017-07-13] MEDS: LITHIUM CARBONATE 300 MG TAB PO SCH ×2 (10:30→21:00)
--- NOTE | 2017-07-13 12:59 | HHI.PYPN ---
Subjective Remarks Patient was seen today for psychiatric reevaluation, patient remains in bed, she says that she has not motivation to get out, feels very depressed, with no desire to do anything, kind hopeless. Patient reports that been diagnosed with diabetes has been very hard for her. I have done some medical education about diabetes, treatment, prognosis. She denies suicidal and homicidal ideation, she denies visual and auditory hallucinations. Patient is oriented history, no agitation or aggressive behavior, no paranoia or delusions or manic symptoms present. She is compliant with medications, no significant side effects Review of Systems Except as stated in HPI: all other systems reviewed are Neg Mental Status Examination Appearance: Appropriate Consciousness: Alert Orientation: x4 Motor Activity: Normal gait Speech: Unremarkable Language: Adequate Fund of Knowledge: Adequate Attention and Concentration: Adequate Memory: Unremarkable Mood: Sad, Other ("scared") Affect: Sad, Anxious Thought Process & Associations: Intact Thought Content: Appropriate Hallucination Type: None Delusion Type: None Suicidal Ideation: No Suicidal Plan: No Suicidal Intention: No Homicidal Ideation: No Homicidal Plan: No Homicidal Intention: No Insight: Adequate Judgment: Adequate Results Labs Test 07/13/17 12:17 Vitals/IOs Vital Signs Date Time Temp Pulse Resp B/P (MAP) Pulse Ox O2 Delivery O2 Flow Rate FiO2 07/13/17 06:11 97.3 88 16 131/63 (85) 95 07/09/17 08:00 Room Air Intake and Output 07/13/17 07/13/17 07/14/17 08:00 16:00 00:00 Intake Total 240 ml 240 ml Balance 240 ml 240 ml Assessment & Plan Problem List: (1) Bipolar 1 disorder, depressed ICD Codes: F31.9 - Bipolar 1 disorder, depressed Status: Acute Assessment & Plan: Continue current psychotropic regimen. Order lithium levels. Brief supportive psychotherapy provided. Assessment & Plan Estimated LOS: days Justification for Cont. Inpt. Patient has a high risk to decompensate at a lower level of care. Bassam Engle MD Jul 13, 2017 12:59
[2017-07-13 13:03] LABS: HEMATOCRIT 44.3 % (35.0-46.0); MEAN CELL VOLUME 94.1 FL (80.0-100.0); PLATELET COUNT 235 TH/MM3 (150-450); RED BLOOD COUNT 4.71 MIL/MM3 (4.00-5.30); REVIEW FLAG FINAL; WHITE BLOOD COUNT 8.2 TH/MM3 (4.0-11.0)
[2017-07-13 13:27] LABS: POTASSIUM 4.4 MEQ/L (3.5-5.1)
--- NOTE | 2017-07-13 13:30 | HHI.FF ---
Face to Face Verification Diagnosis: (1) New onset type 2 diabetes mellitus (2) Bipolar 1 disorder, depressed Home Health Nursing Order: Medical education Diabetic education Medication education-adverse effect Nursing assessment with vital signs I have seen patient Herminia Delgadillo on 07/13/17. My clinical findings support the need for the requested home health care services because: Need for psychosocial assistance I certify that my clinical findings support that this patient is homebound because: Need for psychosocial assistance (Patient needs extensive diabetes educations and medication education. ) Iftikhar Tijerina MD Jul 13, 2017 13:30
--- NOTE | 2017-07-13 13:34 | HHI.PR ---
Subjective Remarks Patient reports that she is feeling ok. She still has a lot of questions regarding diabetes management and insulin. Objective Vitals Vital Signs Date Time Temp Pulse Resp B/P (MAP) Pulse Ox O2 Delivery O2 Flow Rate FiO2 07/13/17 06:11 97.3 88 16 131/63 (85) 95 07/12/17 18:13 98.5 88 15 93/44 (60) 97 I/O 07/12/17 07/12/17 07/12/17 07/13/17 07/13/17 07/13/17 07:00 15:00 23:00 07:00 15:00 23:00 Intake Total 1080 ml 960 ml 720 ml 240 ml 960 ml Balance 1080 ml 960 ml 720 ml 240 ml 960 ml Intake Oral 1080 ml 960 ml 720 ml 240 ml 960 ml # Voids 5 3 2 # Sanitary Pads 1 Pads 1 Pads 1 Pads Result Diagram: 07/13/17 1217 07/13/17 1217 Objective Remarks GENERAL: This is a well-nourished, well-developed obese patient, in no apparent distress. CARDIOVASCULAR: Regular rate and rhythm without murmurs, gallops, or rubs. RESPIRATORY: Clear to auscultation. Breath sounds equal bilaterally. No wheezes , rales, or rhonchi. GASTROINTESTINAL: Abdomen soft, non-tender, nondistended. MUSCULOSKELETAL: Extremities without clubbing, cyanosis, or edema. A/P Assessment and Plan 51-year-old female with past medical history of bipolar disorder who presented to [facility] ED voluntarily for suicidal ideation due to worsening depression after being taken off of lithium. Patient reports excessive thirst and increased urination for the past 3 weeks and while in the ED she was noted to have extremely high blood sugar of 767. Patient denies any reported history of diabetes. Hospitalist services have been consulted for medical management of new onset diabetes. Bipolar disorder Depression Suicidal ideation - Management per psychiatric team - TSH ok. New onset diabetes mellitus - Discussed with patient diagnosis. Recommended lifestyle modification to include regular exercise program and dietary changes. Advised patient she will need to schedule an appt with PCP as outpatient to continue monitor her diabetes and treatment. - Consult dietitian and paraeducator. - Unable to begin metformin at this time due to poor kidney function. - Still with elevated blood sugars. Increase Levemir to 28 units twice a day. Increase pre meal insulin Novolog 10 units TID - Accu-Cheks with Insulin sliding scale as needed for coverage - hemoglobin A1c 18.2 - Diabetic diet Hyperlipidemia: - Started on statin. Hyponatremia - Secondary to elevated blood sugars - Improving Leukocytosis - Mild, likely reactive - Patient is afebrile - monitor as indicated Probable BV: Previously treated with Flagyl, ?recurrence -Given that any infections may cause BG to be more elevated, empirically treat with Clindamycin and follow progress. MOHIT - Creatinine continues to improve - Baseline Cr appears to be 0.9 - Avoid nephrotoxic agents - Encourage by mouth intake - Monitor BMP DVT prophylaxis - Patient is ambulatory Discharge Planning Per Primary, tomorrow. will need close outpatient follow up for further titration of diabetes meds. JAYCE WHITE who will set her up with PCP and HH for diabetic teaching. Iftikhar Tijerina MD Jul 13, 2017 13:34
[2017-07-13 17:52] VITALS: BP 116/58; PULSE 101; RESP 17; TEMP 97.8; O2SAT 95
[2017-07-13] MEDS: ATORVASTATIN 40 MG TAB PO SCH (20:53)
[2017-07-13] MEDS: LORazepam 1 MG TAB PO PRN (20:53)
[2017-07-13] MEDS: REMOVE OLD NICODERM (NICOTINE) PATCH T-DERMAL SCH (21:00)
[2017-07-14 04:58] VITALS: BP 101/52; PULSE 89; RESP 16; TEMP 98.1; O2SAT 96
[2017-07-14] MEDS ORDERED: LITH300T3 PO (08:04)
--- NOTE | 2017-07-14 08:12 | HHI.DS ---
Psychiatry Discharge Summary Inpatient Psychiatric care?: Yes Advance Directive: Yes Mental Health AdvanceDirective: No Health Care Proxy: No Admission Admission Date Jul 09, 2017 at 08:49 Admission Diagnosis: (1) Bipolar 1 disorder, depressed ICD Code: F31.9 - Bipolar 1 disorder, depressed Brief History The patient is a 51-year-old woman, domicile with her mother, unemployed, single, supported by [facility], with psychiatric history of bipolar disorder, multiple psychiatric hospitalizations, last hospitalization was here in [place] in 2015, H&P at that moment was done by me, she has 2 previous suicidal attempts by overdoses, established outpatient care in [facility], she is on olanzapine 10mg and Paxil 20 mg, but she has been poorly compliant with medications, she has not significant medical history, who presents to the emergency Department voluntarily for suicidal ideation. On psychiatric evaluation patient is calm, cooperative, reports depression, poor motivation, very low mood every day, low level of concentration, poor appetite, no enjoying her life, and having frequent suicidal thoughts for the last months. Patient stated that since her lithium was discontinued due to high levels, about 6 months ago, her mood has been progressively worsening. She says that her current psychotropic regimen is not helpful and she has stopped her medications in the last weeks. She reports since that time she has had progressively worsening depression and feels suicidal the last 2 days. Her plan is to overdose on her mother's medications. He contracted for safety in the ER. Patient denies recent episodes of carloz, she denies psychotic symptoms, denies visual and auditory hallucinations. She is oriented 3, no confusion, no fluctuation of consciousness present. Patient denies alcohol and illicit drugs per Tobacco Use In Past 30 Days: No Tobacco Past 30 Days Alcohol Use: Never Hospital Course A she was admitted in the med psych unit due to depressive symptoms, and new onset diabetes symptoms. Psychosocial and psychiatric assessment performed. Safety measures taken. Medicine was consulted in order to treat the new-onset diabetes. Patient at the beginning endorsing severe depressive symptoms, anhedonia, poor concentration, lack of motivation and suicidal thoughts. In the beginning she denies suicidal ideation or intentions. Patient stated that since she was switched from lithium to olanzapine and Paxil her depression came back. She has been noncompliant with these medications. Patient would like to go back to lithium. A discussion about diabetes and kidney impairment was sustained with the patient, risk of using lithium with impaired kidney filtration was explained to the patient, but the patient wished to be put back in lithium. I started the lithium, lithium reach levels, patient improve her depressive symptoms and suicidal ideation. Extensive support, motivation and psychoeducation provided. During the hospitalization no agitation, no violence , no aggressive behavior reported. She was mostly isolated and in bed with poor participation in activities. Patient denies side effects of lithium and medication for diabetes. At the moment of discharge patient is a baseline, denies depression, denies anxiety, denies carloz and psychosis. She denies suicidal and homicidal ideation. Results Blood Pressure 101 / 52 Vital Signs Date Time Temp Pulse Resp B/P (MAP) Pulse Ox O2 Delivery O2 Flow Rate FiO2 07/14/17 04:58 98.1 89 16 101/52 (68) 96 Laboratory Tests Test 07/13/17 12:17 Creatinine 1.01 MG/DL (0.50-1.00) Random Glucose 326 MG/DL (74-106) Sodium Level 133 MEQ/L (136-145) Estimat Glomerular Filtration Rate 58 ML/MIN (>89) Laboratory Results Test 07/09/17 17:39 07/10/17 16:56 07/13/17 12:17 Hemoglobin A1c 18.2 % (4.3-6.0) Cholesterol Level 327 MG/DL (120-200) HDL Cholesterol 35.7 MG/DL (40.0-60.0) LDL Cholesterol 220 MG/DL (0-99) Triglycerides Level 355 MG/DL (42-150) [place] Level 0.7 MEQ/L (0.5-1.5) Summary of Procedures none Pending results at discharge: No Medications # of Antipsychotic meds at D/C: 0 Approp Antipsych med options 1 - Minimum of three failed multiple trials of monotherapy. 2 - Documented plan to taper to monotherapy due to previous use of multiple meds OR cross-taper in progress at D/C. 3 - Documentation of augmentation of Clozapine. 4 - Justification other than those listed in allowable values 1-3, document here : Discharge Discharge Date: Jul 14, 2017 Discharge Diagnosis: (1) Bipolar 1 disorder, depressed ICD Code: F31.9 - Bipolar 1 disorder, depressed Status: Acute Pt Condition on Discharge: Stable Discharge Disposition: Discharge Home Discharge Instructions Diet Instructions: Diabetic Diet Activities you can perform: Weight Bearing as Humberto Scheduled Appointment: Naldo Marchman Act Discharge Time > 30 minutes Mental Status Examination Appearance: Appropriate Consciousness: Alert Orientation: x4 Motor Activity: Normal gait Speech: Unremarkable Language: Adequate Fund of Knowledge: Adequate Attention and Concentration: Adequate Memory: Unremarkable Mood: Sad, Other ("scared") Affect: Sad, Anxious Thought Process & Associations: Intact Thought Content: Appropriate Hallucination Type: None Delusion Type: None Suicidal Ideation: No Suicidal Plan: No Suicidal Intention: No Homicidal Ideation: No Homicidal Plan: No Homicidal Intention: No Insight: Adequate Judgment: Adequate Discharge/Advance Care Plan Health Problems: (1) Bipolar 1 disorder, depressed Goals to promote your health * To prevent worsening of your condition and complications * To maintain your health at the optimal level Directions to meet your goals Take your medications as prescribed Follow your dietary instruction Follow activity as directed Keep your appointments as scheduled Take your immunizations and boosters as scheduled If your symptoms worsen call your PCP, if no PCP go to Urgent Care Center or Emergency Room For 18/04 questions related to your inpatient stay or results of tests pending at discharge, please contact Dr. Bassam Engle at Smoking is Dangerous to Your Health. Avoid second hand smoking Bassam Engle MD Jul 14, 2017 08:12
[2017-07-14] MEDS ORDERED: CLIN150 PO (09:00)
[2017-07-14] MEDS ORDERED: LANCETS1 MI1 (09:00)
[2017-07-14] MEDS ORDERED: METF500T PO (09:00)
[2017-07-14] MEDS: NICOTINE 21 MG/24 HR PATCH T-DERMAL SCH (09:00)
[2017-07-14] MEDS ORDERED: GLUCKIT15 (09:00)
[2017-07-14] MEDS ORDERED: ATOR40TA16 PO (09:00)
[2017-07-14] MEDS ORDERED: LEVEMIR SQ (09:00)
[2017-07-14] MEDS ORDERED: NOVORP2 SQ (09:00)
[2017-07-14] MEDS: INSULIN DETEMIR 100 UNITS/ML VIAL SQ SCH (09:17)
[2017-07-14] MEDS: INSULIN ASPART SUPPLEMENTAL SCALE SQ SCH ×2 (09:21→11:40)
[2017-07-14] MEDS: INSULIN ASPART 1,000 UNITS/10 ML VIAL SQ SCH ×2 (09:21→11:41)
[2017-07-14] MEDS: LITHIUM CARBONATE 300 MG TAB PO SCH (09:23)
[2017-07-14] MEDS: CLINDAMYCIN 150 MG CAP PO SCH (09:26)
--- NOTE | 2017-07-14 09:31 | HHI.PR ---
Subjective Remarks patient reports she is doing okay except for some mild right sided abdominal pain. No nausea or vomiting. We discussed discharge planning at length. Objective Vitals Vital Signs Date Time Temp Pulse Resp B/P (MAP) Pulse Ox O2 Delivery O2 Flow Rate FiO2 07/14/17 04:58 98.1 89 16 101/52 (68) 96 07/13/17 17:52 97.8 101 17 116/58 (77) 95 I/O 07/13/17 07/13/17 07/13/17 07/14/17 07/14/17 07/14/17 07:00 15:00 23:00 07:00 15:00 23:00 Intake Total 240 ml 960 ml 1200 ml 480 ml Balance 240 ml 960 ml 1200 ml 480 ml Intake Oral 240 ml 960 ml 1200 ml 480 ml # Voids 2 1 2 # Sanitary Pads 1 Pads 1 Pads Result Diagram: 07/13/17 1217 07/13/17 1217 Objective Remarks GENERAL: This is a well-nourished, well-developed obese patient, in no apparent distress. CARDIOVASCULAR: Regular rate and rhythm without murmurs, gallops, or rubs. RESPIRATORY: Clear to auscultation. Breath sounds equal bilaterally. No wheezes , rales, or rhonchi. GASTROINTESTINAL: Abdomen soft, mild tenderness to deep palpation over the right lower quadrant. No rebound tenderness, nondistended. MUSCULOSKELETAL: Extremities without clubbing, cyanosis, or edema. A/P Assessment and Plan 51-year-old female with past medical history of bipolar disorder who presented to [facility] ED voluntarily for suicidal ideation due to worsening depression after being taken off of lithium. Patient reports excessive thirst and increased urination for the past 3 weeks and while in the ED she was noted to have extremely high blood sugar of 767. Patient denies any reported history of diabetes. Hospitalist services have been consulted for medical management of new onset diabetes. Bipolar disorder Depression Suicidal ideation - Management per psychiatric team - TSH ok. New onset diabetes mellitus - Discussed with patient diagnosis. Recommended lifestyle modification to include regular exercise program and dietary changes. She has been set up for outpatient follow-up with her PCP to continue titrating diabetes medications. -Patient was seen by a parent educator. She is discharged on metformin 500 mg twice a day, Levemir 30 units twice a day, NovoLog 10 units 3 times a day with meals and sliding scale insulin. - hemoglobin A1c 18.2 - Diabetic diet Hyperlipidemia: - Started on statin. Probable BV: Previously treated with Flagyl, ?recurrence -Given that any infections may cause BG to be more elevated, empirically treat with Clindamycin. MOHIT -Resolved - Baseline Cr appears to be 0.9 - Avoid nephrotoxic agents - Encourage by mouth intake Discharge Planning Discharge today. Patient needs close outpatient follow up for further titration of diabetes meds. Previously DW CHRISTOPHER who will set her up with PCP and HH for diabetic teaching. Iftikhar Tijerina MD Jul 14, 2017 09:31
--- NOTE | 2017-07-14 10:31 | RADRPT ---
EXAM DATE/TIME: 07/14/2017 09:56 [place] COMPARISON: No previous studies available for comparison. INDICATIONS : Abdominal pain. MEDICAL HISTORY : Chronic obstructive pulmonary disease. History of PE. Asthma. Diabetes. Arthritis. SURGICAL HISTORY : Cholecystectomy. Appendectomy. ENCOUNTER: Initial ACUITY: 2 days PAIN SCORE: 7/10 LOCATION: Abdomen. FINDINGS: Supine view of the abdomen was performed. The abdominal bowel gas pattern is normal. There is modera te amount of stool in the colon. No abnormal masses, calcifications, or organomegaly is seen. Surgic al clips in the right upper quadrant. The osseous structures are unremarkable. CONCLUSION: Benign abdomen. Raphael Peacock MD on July 14, 2017 at 10:29 Board Certified Radiologist. This report was verified electronically.
== END 2017-07-14 12:05 | disposition home or self-care (01) | DRG 885 ==
LOC: NEPD 16:47 → NEDA 07-09 08:49 → H260 07-09 10:23 → H4EA 07-10 10:45
PROVIDERS: ADMIT Psychiatry & Neurology Psychiatry; ATTEND Psychiatry & Neurology Psychiatry
DX: F31.9 Bipolar disorder, unspecified (principal); N17.9 Acute kidney failure, unspecified; E11.65 Type 2 diabetes mellitus with hyperglycemia; R45.851 Suicidal ideations; E87.1 Hypo-osmolality and hyponatremia; Z91.14 Patient's other noncompliance with medication regimen; B37.3 Candidiasis of vulva and vagina; Z91.5 Personal history of self-harm; M19.90 Unspecified osteoarthritis, unspecified site; F41.9 Anxiety disorder, unspecified; J44.9 Chronic obstructive pulmonary disease, unspecified; I25.2 Old myocardial infarction; Z86.711 Personal history of pulmonary embolism; H54.7 Unspecified visual loss; E78.5 Hyperlipidemia, unspecified
CPT/HCPCS: 74000; 80048; 80053; 80061; 80178; 80307; 82948; 83036; 84443; 85025; 85027; 93005; 96360; 96361; 96372; J1815; J7030

== ENCOUNTER → 2017-12-05 | Outpatient (CLI) | payer MEDICARE, OTHER ==
[~2017-12-05] MED LIST changes: -ADVI200T17 PO; +ATOR40TA16 PO; +CLIN150 PO; -FLUO20CA4 PO; +GLUCKIT15; +LANCETS1 MI1; +LEVEMIR SQ; +LITH300T3 PO; -LITH450T PO; +METF500T PO; +NOVORP2 SQ; -PALI117P IM; +PAXI20TA26 PO; +ZYPR10TA PO
[2017-12-05 10:04] LABS: AUTOMATED NEUTROPHIL # 9.5 TH/MM3 (1.8-7.7); BASOPHIL # 0.2 TH/MM3 (0-0.2); EOSINOPHIL # 0.8 TH/MM3 (0-0.4); HEMOGLOBIN 13.3 GM/DL (11.6-15.3); LYMPH % 27.2 % (9.0-44.0); LYMPHOCYTE # 4.3 TH/MM3 (1.0-4.8); MEAN CELL VOLUME 90.9 FL (80.0-100.0); MEAN CORPUSCULAR HGB CONC 34.1 % (32.0-36.0); MEAN PLATELET VOLUME 8.5 FL (7.0-11.0); MONO % 6.6 % (0.0-8.0); NEUT % 60.2 % (16.0-70.0); PLATELET COUNT 322 TH/MM3 (150-450); RED BLOOD COUNT 4.29 MIL/MM3 (4.00-5.30); WHITE BLOOD COUNT 15.8 TH/MM3 (4.0-11.0)
[2017-12-05 10:30] LABS: ALBUMIN 3.6 GM/DL (3.4-5.0); AST (GOT) 16 U/L (15-37); BICARBONATE 26.4 MEQ/L (21.0-32.0); BLOOD UREA NITROGEN 16 MG/DL (7-18); CALCIUM 8.8 MG/DL (8.5-10.1); CHLORIDE 104 MEQ/L (98-107); CHOLESTEROL 165 MG/DL (120-200); CREATININE 1.25 MG/DL (0.50-1.00); GLOMERULAR FILTRATION RATE 45 ML/MIN (>89); GLUCOSE,FASTING 109 MG/DL (74-99); SODIUM (NA) 139 MEQ/L (136-145); TRIGLYCERIDES 133 MG/DL (42-150)
[2017-12-05 10:40] LABS: ALKALINE PHOSPHATASE 100 U/L (45-117); ALT (GPT) 29 U/L (10-53); CHOLESTEROL/ HDL RATIO 3.82 RATIO; HDL CHOLESTEROL 43.1 MG/DL (40.0-60.0); LDL CHOLESTEROL 95 MG/DL (0-99); TOTAL BILIRUBIN ADULT 0.3 MG/DL (0.2-1.0); TOTAL PROTEIN 7.9 GM/DL (6.4-8.2)
[2017-12-05 17:08] LABS: HEMOGLOBIN A1C 7.2 % (4.3-6.0)
== END ==
LOC: CLAB 08:57
PROVIDERS: ATTEND Nurse Practitioner Family
DX: E11.9 Type 2 diabetes mellitus without complications (principal)
CPT/HCPCS: 36415; 80053; 80061; 83036; 84443; 85025

== ENCOUNTER 2017-12-27 01:42 | Emergency (ER) | payer MEDICARE, OTHER ==
[2017-12-27 01:46] VITALS: BP 115/78; PULSE 92; RESP 20; TEMP 98.2; O2SAT 98
[2017-12-27] MEDS ORDERED: SODIUM CHLOR 0.9% 1000 ML INJ 1,000 ML IV ONE (02:30)
--- NOTE | 2017-12-27 03:24 | PD ---
HPI Chief Complaint: Diabetic Time Seen by Provider: 02:14 Travel History International Travel<30 days: No Contact w/Intl Traveler<30days: No Traveled to known affect area: No History of Present Illness HPI Patient is a 52-year-old female presenting to the emergency department with multiple vague medical complaints. Patient reports widespread body aches that started a few hours prior to arrival. She reports that an hour and a half ago she started feeling shaky. Patient is currently undomiciled. She reports that she has been walking a lot, she states that she is living in her vehicle. She denies any chest pain, abdominal pain, nausea, vomiting, shortness of breath, headache. She states that she is eating and drinking well. She reports compliance with her medications and states she was told to decrease her insulin dose. PFSH Past Medical History Arthritis: Yes Asthma: Yes Bipolar Disorder: Yes Anxiety: Yes Depression: Yes Chest Pain: Yes (2001) COPD: Yes Diabetes: Yes Patient Takes Glucophage: Yes Gastrointestinal Disorders: Yes Neurologic: Yes (CHIARI 1 MALFORMATION) Respiratory: Yes (HX OF PE) Immunizations Current: Yes Myocardial Infarction: Yes (2008) Schizophrenia: Yes PNEUMOCCOCAL Vaccine (Year): 3 ?: Not Menopausal: Yes : 3 Para: 2 Miscarriage: 1 Past Surgical History Abdominal Surgery: Yes (GALLBLADDER REMOVED) AICD: No Appendectomy: Yes Cardiac Surgery: No Cholecystectomy: Yes (2003) Ear Surgery: No Eye Surgery: No Genitourinary Surgery: No Gynecologic Surgery: No Hysterectomy: No Neurologic Surgery: No Pacemaker: No Thoracic Surgery: No Tonsillectomy: Yes (AND ADENOIDS) Other Surgery: Yes (GALLBLADDER REMOVER/APPENDECTOMY) Social History Alcohol Use: No Tobacco Use: No Substance Use: Yes Allergies-Medications (Allergen,Severity, Reaction): Coded Allergies: chlorpromazine (Unverified Allergy, Severe, SOB, 07/08/17) fluphenazine (Unverified Allergy, Severe, 07/08/17) haloperidol (Unverified Allergy, Severe, 07/08/17) iodine (Unverified Allergy, Severe, HIVES, 07/08/17) olanzapine (Unverified Allergy, Severe, SOB, 07/08/17) potassium iodide (Unverified Allergy, Severe, HIVES, 07/08/17) povidone-iodine (Unverified Allergy, Severe, HIVES, 07/08/17) sodium iodide (Unverified Allergy, Severe, HIVES, 07/08/17) sodium iodide (Unverified Allergy, Severe, HIVES, 07/08/17) ziprasidone (Unverified Allergy, Severe, "SOB-TARDIVE DYSKINESIA", ) Sulfa (Sulfonamide Antibiotics) (Unverified Allergy, Mild, 07/08/17) lurasidone (Verified Allergy, Unknown, 07/08/17) shellfish derived (Unverified Allergy, Unknown, 07/08/17) Reported Meds & Prescriptions Reported Meds & Active Scripts Active Metformin (Metformin HCl) 500 Mg Tab 500 Mg PO BIDPC Novolin R Inj (Insulin Human Regular) 1,000 Unit/10 Ml Vial 2-10 Units SQ DIRECTED sugars less than 150,(0) units; sugars 150-199,(2)unit; sugars 200-249,(4)units; sugars 250-299,(6) units; sugars 300-349,(8)units; sugars equal to or greater than 350,(10)units Lancets 1 Mis Mis Ea .ROUTE DIRECTED Glucocom Blood Glucose Mo W/Device (Device) 1 Kit Kit Kit .ROUTE DIRECTED Check blood sugar four times daily. Before meals and 2 hrs after the biggest meal of the day. Levemir Inj (Insulin Detemir) 1,000 unit/ 10 ML Vial 30 Units SQ Q12HR 30 Days Do not mix with any other Insulin. [place] Carbonate 300 Mg Tab 600 Mg PO Q12HR Review of Systems Except as stated in HPI: all other systems reviewed are Neg Musculoskeletal: Positive: Myalgias Neurologic: No: Focal Abnormalities Psychiatric: Positive: Disorder of Thought Physical Exam Narrative GENERAL: Disheveled, sunburn, female. Presenting in no acute distress. SKIN: Warm and dry. HEAD: Atraumatic. Normocephalic. EYES: Pupils equal and round. No scleral icterus. No injection or drainage. ENT: No nasal bleeding or discharge. Mucous membranes pink and moist. NECK: Trachea midline. No JVD. CARDIOVASCULAR: Regular rate and rhythm. RESPIRATORY: No accessory muscle use. Clear to auscultation. Breath sounds equal bilaterally. GASTROINTESTINAL: Abdomen soft, non-tender, nondistended. Hepatic and splenic margins not palpable. MUSCULOSKELETAL: Extremities without clubbing, cyanosis, or edema. No obvious deformities. NEUROLOGICAL: Awake and alert. No obvious cranial nerve deficits. Motor grossly within normal limits. Five out of 5 muscle strength in the arms and legs. Normal speech. PSYCHIATRIC: Appropriate mood and affect; insight and judgment normal. Data Data Last Documented VS Vital Signs Date Time Temp Pulse Resp B/P (MAP) Pulse Ox O2 Delivery O2 Flow Rate FiO2 12/27/17 01:46 98.2 92 20 115/78 (90) 98 Orders Orders Complete Blood Count With Diff (12/27/17 02:25) Comprehensive Metabolic Panel (12/27/17 02:25) Urinalysis - C+S If Indicated (12/27/17 02:25) Sodium Chlor 0.9% 1000 Ml Inj (Ns 1000 M (12/27/17 02:30) Iv Access Insert/Monitor (12/27/17 02:29) Labs Laboratory Tests Test 12/27/17 03:15 Urine Color YELLOW Urine Turbidity CLEAR Urine pH 6.0 Urine Specific [place] 1.011 Urine Protein TRACE mg/dL Urine Glucose (UA) NEG mg/dL Urine Ketones NEG mg/dL Urine Occult Blood NEG Urine Nitrite NEG Urine Bilirubin NEG Urine Urobilinogen LESS THAN 2.0 MG/DL Urine Leukocyte Esterase TRACE Urine WBC 1 /hpf Urine Squamous Epithelial Cells 1 /hpf Urine Bacteria RARE /hpf Urine Hyaline Casts 2 /lpf Urine Mucus FEW /lpf Microscopic Urinalysis Comment CULT NOT INDICATED MDM Medical Decision Making Medical Screen Exam Complete: Yes Emergency Medical Condition: Yes Medical Record Reviewed: Yes Interpretation(s) Vital Signs Date Time Temp Pulse Resp B/P (MAP) Pulse Ox O2 Delivery O2 Flow Rate FiO2 12/27/17 01:46 98.2 92 20 115/78 (90) 98 Differential Diagnosis Muscle strain versus muscle spasm versus metabolic abnormality versus other Narrative Course Patient is 52-year-old female presenting to the emergency department with vague medical complaints. Will check basic labs. Patient refused IV and IV fluids. She was given oral hydration. Patient refused labs as well. She was then reassessed and stated that she was exhausted and just wanted to sleep. Patient will be allowed to sleep until bed is needed. Patient is stable for discharge. Diagnosis Primary Impression: Fatigue due to sleep pattern disturbance Referrals: Primary Care Physician Patient Instructions: General Instructions Additional Instructions: Follow-up with your primary doctor Return to emergency department for any new worsening symptoms Med/Other Pt SpecificInfo: No Change to Meds Disposition: 01 DISCHARGE HOME Condition: Stable Megan Sharpe Dec 27, 2017 03:24
[2017-12-27 03:49] LABS: BACTERIA, URINE RARE /hpf; BILIRUBIN, URINE NEG (NEG); BLOOD, URINE NEG (NEG); GLUCOSE,URINE NEG (NEG); HYALINE CAST, URINE 2 /lpf (RARE); KETONE, URINE NEG (NEG); MUCUS URINE FEW /lpf (OCC); NITRITE,URINE NEG (NEG); SQUAMOUS EPITHELIAL CELL URINE 1 /hpf (0-5); URINE COLOR YELLOW (YELLW/STRAW); URINE LEUKOCYTE ESTERASE TRACE (NEG)
== END 2017-12-27 06:25 | disposition home or self-care (01) ==
LOC: NEPD 01:42
DX: G47.9 Sleep disorder, unspecified (principal); J44.9 Chronic obstructive pulmonary disease, unspecified; F31.9 Bipolar disorder, unspecified; F20.9 Schizophrenia, unspecified; E11.9 Type 2 diabetes mellitus without complications; F41.9 Anxiety disorder, unspecified; I25.2 Old myocardial infarction; G93.5 Compression of brain; Z79.4 Long term (current) use of insulin; Z86.711 Personal history of pulmonary embolism; Z79.84 Long term (current) use of oral hypoglycemic drugs; Z59.0 Homelessness
CPT/HCPCS: 81001; 99283

== ENCOUNTER 2018-01-08 21:41 | Inpatient (IN) | payer MEDICARE, OTHER ==
[~2018-01-08] VITALS: Ht 162.6 cm; Wt 96.4 kg
[~2018-01-08 21:41] MED LIST changes: -ATOR40TA16 PO; -CLIN150 PO; -PAXI20TA26 PO; -ZYPR10TA PO
[2018-01-08 21:52] VITALS: BP 177/71; PULSE 112; RESP 19; TEMP 98.8; O2SAT 97
--- NOTE | 2018-01-08 21:55 | PD ---
HPI Chief Complaint: Psychiatric Symptoms Time Seen by Provider: 21:47 Travel History International Travel<30 days: No Contact w/Intl Traveler<30days: No Traveled to known affect area: No History of Present Illness HPI 53-year-old female that presents to the ED for evaluation of Landa act. Patient was Landa acted by police after apparently mother called the police secondary to her being somewhat bizarre and aggressive towards her. Mother was concerned about her behavior. Patient states that the only medical issue she has is she has a history of diabetes but per patient she does not take any medications because now it is control with diet. She has a chronic history of bipolar disorder and takes lithium chronically. Per patient she follows with [facility] for this. Denies any fevers chills or sweats. No other medical issues. Denies any suicidal homicidal ideation. No drug abuse or alcohol. Per patient takes multiple vitamins. Multiple allergies to different medications. Has been here multiple times in the past for psychiatric issues. unclear to the length of symptoms. Per patient herself she is having issues with her mother who she lives with an she is usually the one who gets her Landa acted. PFSH Past Medical History Arthritis: Yes Asthma: Yes Bipolar Disorder: Yes Anxiety: Yes Depression: Yes Chest Pain: Yes (2001) COPD: Yes Diabetes: Yes Gastrointestinal Disorders: Yes Neurologic: Yes (CHIARI 1 MALFORMATION) Respiratory: Yes (HX OF PE) Immunizations Current: Yes Myocardial Infarction: Yes (2008) Schizophrenia: Yes PNEUMOCCOCAL Vaccine (Year): 3 Menopausal: Yes : 3 Para: 2 Miscarriage: 1 Past Surgical History Abdominal Surgery: Yes (GALLBLADDER REMOVED) AICD: No Appendectomy: Yes Cardiac Surgery: No Cholecystectomy: Yes (2003) Ear Surgery: No Eye Surgery: No Genitourinary Surgery: No Gynecologic Surgery: No Hysterectomy: No Neurologic Surgery: No Pacemaker: No Thoracic Surgery: No Tonsillectomy: Yes (AND ADENOIDS) Other Surgery: Yes (GALLBLADDER REMOVER/APPENDECTOMY) Social History Alcohol Use: No Tobacco Use: No Substance Use: Yes Allergies-Medications (Allergen,Severity, Reaction): Coded Allergies: chlorpromazine (Unverified Allergy, Severe, SOB, 07/08/17) fluphenazine (Unverified Allergy, Severe, 07/08/17) haloperidol (Unverified Allergy, Severe, 07/08/17) iodine (Unverified Allergy, Severe, HIVES, 07/08/17) olanzapine (Unverified Allergy, Severe, SOB, 07/08/17) potassium iodide (Unverified Allergy, Severe, HIVES, 07/08/17) povidone-iodine (Unverified Allergy, Severe, HIVES, 07/08/17) sodium iodide (Unverified Allergy, Severe, HIVES, 07/08/17) sodium iodide (Unverified Allergy, Severe, HIVES, 07/08/17) ziprasidone (Unverified Allergy, Severe, "SOB-TARDIVE DYSKINESIA", ) Sulfa (Sulfonamide Antibiotics) (Unverified Allergy, Mild, 07/08/17) lurasidone (Verified Allergy, Unknown, 07/08/17) shellfish derived (Unverified Allergy, Unknown, 07/08/17) Reported Meds & Prescriptions Reported Meds & Active Scripts Active [place] Carbonate 300 Mg Tab 600 Mg PO Q12HR Review of Systems Except as stated in HPI: all other systems reviewed are Neg Physical Exam Narrative GENERAL: SKIN: Warm and dry. HEAD: Atraumatic. Normocephalic. EYES: Pupils equal and round. No scleral icterus. No injection or drainage. ENT: No nasal bleeding or discharge. Mucous membranes pink and moist. Tongue is midline. No uvula reaction. NECK: Trachea midline. No JVD. CARDIOVASCULAR: Regular rate and rhythm. No murmurs, S3, S4. RESPIRATORY: No accessory muscle use. Clear to auscultation. Breath sounds equal bilaterally. GASTROINTESTINAL: Abdomen soft, non-tender, nondistended. Hepatic and splenic margins not palpable. MUSCULOSKELETAL: Extremities without clubbing, cyanosis, or edema. No obvious deformities. Full range of motion of the upper and lower extremities bilaterally. 2+ pulses bilaterally. NEUROLOGICAL: Awake and alert. No obvious cranial nerve deficits. Motor grossly within normal limits. Five out of 5 muscle strength in the arms and legs. Normal speech. PSYCHIATRIC: Appropriate mood and affect; insight and judgment normal. Data Data Last Documented VS Vital Signs Date Time Temp Pulse Resp B/P (MAP) Pulse Ox O2 Delivery O2 Flow Rate FiO2 01/08/18 21:52 98.8 112 19 177/71 (106) 97 Room Air Orders Orders Complete Blood Count With Diff (01/08/18 21:48) Comprehensive Metabolic Panel (01/08/18 21:48) Thyroid Stimulating Hormone (01/08/18 21:48) Urinalysis - C+S If Indicated (01/08/18 21:48) Psych Screen (01/08/18 21:48) [place] (Li) (01/08/18 21:48) Drug Screen, Random Urine (01/08/18 21:48) Alcohol (Ethanol) (01/08/18 21:48) Salicylates (Aspirin) (01/08/18 21:48) Tylenol (Acetaminophen) (01/08/18 21:48) MDM Medical Decision Making Medical Screen Exam Complete: Yes Emergency Medical Condition: Yes Medical Record Reviewed: Yes Differential Diagnosis Depression versus suicidal ideation versus anxiety versus adjustment disorder versus mood disorder versus bipolar disorder versus schizophrenia versus paranoid disorder versus psychosis versus substance abuse versus alcohol abuse versus alcohol induced psychosis versus homicidality addition versus cutting versus personality disorder Narrative Course 52-year-old female that presents to the ED for evaluation of psychiatric illness. Patient was properly examined and was found to have signs and symptoms consistent appears to be psychiatric illness. Labs were drawn. Patient was medically cleared. Okay to be seen by psych. Mental health screening was discussed with the patient. Diagnosis Primary Impression: Bipolar disorder Qualified Codes: F31.0 - Bipolar disorder, current episode hypomanic Xiang Byers Jan 08, 2018 21:54
[2018-01-08 22:13] LABS: AUTOMATED NEUTROPHIL # 6.9 TH/MM3 (1.8-7.7); BASOPHIL # 0.1 TH/MM3 (0-0.2); EOSINOPHIL # 0.5 TH/MM3 (0-0.4); EOSINOPHIL % 4.2 % (0.0-4.0); HEMATOCRIT 40.4 % (35.0-46.0); HEMOGLOBIN 13.6 GM/DL (11.6-15.3); LYMPH % 28.5 % (9.0-44.0); LYMPHOCYTE # 3.4 TH/MM3 (1.0-4.8); MEAN CELL VOLUME 92.2 FL (80.0-100.0); MEAN CORPUSCULAR HEMOGLOBIN 30.9 PG (27.0-34.0); MEAN CORPUSCULAR HGB CONC 33.5 % (32.0-36.0); MEAN PLATELET VOLUME 8.6 FL (7.0-11.0); MONOCYTE # 0.9 TH/MM3 (0-0.9); NEUT % 58.3 % (16.0-70.0); PLATELET COUNT 346 TH/MM3 (150-450); RED BLOOD COUNT 4.39 MIL/MM3 (4.00-5.30); RED CELL DISTRIBUTION WIDTH 14.1 % (11.6-17.2); WHITE BLOOD COUNT 11.8 TH/MM3 (4.0-11.0)
[2018-01-08 22:30] LABS: ALBUMIN 3.3 GM/DL (3.4-5.0); ALT (GPT) 29 U/L (10-53); AST (GOT) 15 U/L (15-37); BICARBONATE 25.9 MEQ/L (21.0-32.0); BLOOD UREA NITROGEN 20 MG/DL (7-18); CALCIUM 8.8 MG/DL (8.5-10.1); CHLORIDE 107 MEQ/L (98-107); GLOMERULAR FILTRATION RATE 52 ML/MIN (>89); GLUCOSE,RANDOM 135 MG/DL (74-106); SODIUM (NA) 141 MEQ/L (136-145)
[2018-01-08 22:39] LABS: ACETAMINOPHEN 3.7 MCG/ML (10.0-30.0); ALKALINE PHOSPHATASE 92 U/L (45-117); TOTAL BILIRUBIN ADULT 0.2 MG/DL (0.2-1.0); TOTAL PROTEIN 7.7 GM/DL (6.4-8.2)
[2018-01-08 23:08] LABS: BILIRUBIN, URINE NEG (NEG); BLOOD, URINE NEG (NEG); GLUCOSE,URINE NEG (NEG); KETONE, URINE NEG (NEG); MUCUS URINE FEW /lpf (OCC); NITRITE,URINE NEG (NEG); SQUAMOUS EPITHELIAL CELL URINE 2 /hpf (0-5); URINE COLOR YELLOW (YELLW/STRAW); URINE LEUKOCYTE ESTERASE NEG (NEG)
[2018-01-09 02:15] VITALS: BP 126/68; PULSE 92; RESP 18; TEMP 97.1; O2SAT 97
[2018-01-09 06:51] VITALS: BP 141/66; PULSE 83; RESP 18; TEMP 98.2; O2SAT 98
[2018-01-09] MEDS ORDERED: DEXTROSE 50% IN WATER 50 ML VIAL(D50) IV PUSH PRN (08:15)
[2018-01-09] MEDS ORDERED: BENZTROPINE MESYLATE 1 MG TAB PO PRN (08:15)
[2018-01-09] MEDS ORDERED: GLUCAGON 1 MG/ML VIAL OTHER PRN (08:15)
[2018-01-09] MEDS ORDERED: LORazepam 2 MG/ML VIAL IM PRN (08:15)
[2018-01-09] MEDS ORDERED: ALUMINUM/MAGNESIUM/SIMETH 30 ML CUP PO PRN (08:15)
[2018-01-09] MEDS ORDERED: BENZTROPINE MESYLATE 2 MG/2 ML VIAL IM PRN (08:15)
[2018-01-09] MEDS ORDERED: MAGNESIUM HYDROXIDE SUSP 30 ML CUP PO PRN (08:15)
[2018-01-09] MEDS ORDERED: LORazepam 1 MG TAB PO PRN (08:15)
[2018-01-09] MEDS ORDERED: NICOTINE 21 MG/24 HR PATCH T-DERMAL PRN (08:15)
--- NOTE | 2018-01-09 08:33 | HHI.HP ---
Provisional Diagnosis Admission Date Jan 09, 2018 at 08:07 [place] I. 1. Schizoaffective disorder, bipolar type, acute exacerbation [place] II. Deferred Certification of Person's Competence To Provide Express and Informed Consent I have personally examined Herminia Delgadillo , a person being served at [facility] on, Jan 09, 2018 08:17. Express and informed consent means consent voluntarily given in writing, by a competent person, after sufficient explanation and disclosure of the subject matter involved to enable the person to make a knowing and willful decision without any element of force, fraud, deceit, duress, or other form of constraint or coercion. This person is 18 years of age or older, is not now known to be incompetent to consent to treatment with a guardian advocate, and does not have a health care surrogate or proxy currently making medical treatment decisions. I have found this person to be one of the following: [] Competent to provide express and informed consent, as defined above, for voluntary admission to this facility and is competent to provide express and informed consent for treatment. He/she has the consistent capacity to make well reasoned, willful, and knowing decisions concerning his or her medical or mental health treatment. The person fully and consistently understands the purpose of the admission for examination/placement and is fully capable of personally exercising all rights assured [place] [] Incompetent to provide express and informed consent to voluntary admission, and this is incompetent to provide express and informed consent to treatment. The person must be transferred to involuntary status and a petition for a guardian advocate filed with the Circuit Court. [x] Refusing to provide express and informed consent to voluntary admission but is competent to provide express and informed consent for treatment. The person must be discharged or transferred to involuntary status. Form shall be completed within 24 hours of a person's arrival at the receiving facility and filed in the clinical record of each person: 1. Admitted on a voluntary basis 2. Permitted to provide express and informed consent to his/her own treatment 3. Allowed to transfer from involuntary to voluntary status 4. Prior to permitting a person to consent to his or her own treatment after having been previously found incompetent to consent to treatment. History of Present Illness Capacity: Has Capacity (to consent for meds) Psych Chief Complaint: "I'm not feeling well for 3 or 4 days." HPI Ms. Delgadillo is a 52-year-old female with a chart history of bipolar disorder who presents under a [place] act by law enforcement alleging that the patient is off of her prescribed medications and is hallucinating. Reviewing the electronic medical record, I note that the patient was admitted most recently last June under Dr. Engle. Patient seen and examined. Chart reviewed. Case discussed with nursing staff. On my examination today, the patient is disheveled. She tells me that she has been sleeping in her car because her mother is angry at her. She believes that her mother manipulates her, but it is unclear whether this has a basis in reality. She insists that she has been taking her medications although her lithium level was subtherapeutic. She tells me repeatedly "I'm not hallucinogenic" meaning that she is not experiencing hallucinations. She does appear somewhat internally stimulated. She exhibits some bizarre ideation, for example when I ask about children, she replies "my children aren't living. Well , my oldest one is, but he's a revival too because he was attacked by a negroid down in [place]." Patient appears to believe that she herself is a "revival" by which she seems to mean some sort of revenant. When I ask about he subtherapeutic lithium level, patient goes on a tangent about being tapered off her insulin and metformin, and it does not appear she has been adherent with her antihyperglycemics. Patient reports mood is "stable" and I can elicit no depressive or hypomanic/manic symptoms. She denies any suicidal or homicidal ideation but seems unreliable to contract for safety. 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 Patient has no acute physical complaints except she is a little bit stiff, reportedly from having slept in her car for several days. Past psychiatric history: Regarding diagnosis, patient says "I am a revival." She says that she follows psychiatrically with "the victims advocate office at [facility]." Her most recent psychiatric admission was here at [place]. She reports 1 previous suicide attempt by overdose in 1993. She denies a history of violent behavior. Family history: The patient reports that her mother is "a violent bipolar gabapentin" who has attempted suicide in the past. Unclear if this is reality based. Chemical dependency history: The patient denies any abuse of drugs or alcohol. Social history: The patient lives with her mother. She is . Regarding her children and employment, see above. She denies any legal history besides trespassing charges. She denies any access to guns or firearms. Social history is somewhat limited as the patient is a poor historian due to psychosis. Review of Systems ROS Limitations: Psychotic, Poor Historian Except as stated in HPI: all other systems reviewed are Neg Past Family Social History Coded Allergies: chlorpromazine (Unverified Allergy, Severe, SOB, 07/08/17) fluphenazine (Unverified Allergy, Severe, 07/08/17) haloperidol (Unverified Allergy, Severe, 07/08/17) iodine (Unverified Allergy, Severe, HIVES, 07/08/17) olanzapine (Unverified Allergy, Severe, SOB, 07/08/17) potassium iodide (Unverified Allergy, Severe, HIVES, 07/08/17) povidone-iodine (Unverified Allergy, Severe, HIVES, 07/08/17) sodium iodide (Unverified Allergy, Severe, HIVES, 07/08/17) sodium iodide (Unverified Allergy, Severe, HIVES, 07/08/17) ziprasidone (Unverified Allergy, Severe, "SOB-TARDIVE DYSKINESIA", ) Sulfa (Sulfonamide Antibiotics) (Unverified Allergy, Mild, 07/08/17) lurasidone (Verified Allergy, Unknown, 07/08/17) shellfish derived (Unverified Allergy, Unknown, 07/08/17) Past Medical History Includes a history of diabetes mellitus. See electronic medical record. Active Scripts Wagram Carbonate (Wagram Carbonate) 300 Mg Tab, 600 MG PO Q12HR for health, # 60 TAB 1 Refill Prov:Bassam Engle MD 07/14/17 Discontinued Scripts Metformin (Metformin) 500 Mg Tab, 500 MG PO BIDPC for Blood Sugar Management, # 60 TAB 0 Refills Prov:Iftikhar Tijerina MD 07/14/17 Insulin Human Regular Inj (Novolin R Inj) 1,000 Unit/10 Ml Vial, 2-10 UNITS SQ DIRECTED for Blood Sugar Management, #10 ML 0 Refills sugars less than 150,(0) units; sugars 150-199,(2)unit; sugars 200-249,(4)units; sugars 250-299,(6) units; sugars 300-349,(8)units; sugars equal to or greater than 350,(10)units Prov:Iftikhar Tijerina MD 07/14/17 Lancets (Lancets) 1 Mis Mis, EA .ROUTE DIRECTED for Blood Sugar Management, # 1 0 Refills Prov:Iftikhar Tijerina MD 07/14/17 Blood Glucose Monitoring W/Device (Glucocom Blood Glucose Mo W/Device) 1 Kit Kit , KIT .ROUTE DIRECTED for Blood Sugar Management, #1 Check blood sugar four times daily. Before meals and 2 hrs after the biggest meal of the day. Prov:Iftikhar Tijerina MD 07/14/17 Insulin Detemir Inj (Levemir Inj) 1,000 unit/ 10 ML Vial, 30 UNITS SQ Q12HR for 30 Days, INJECTION Do not mix with any other Insulin. Prov:Iftikhar Tijerina MD 07/14/17 Current Medications Medications (Trade) Dose Ordered Sig/Omkar Route Start Time Stop Time Status Last Admin (Ativan) 1 mg Q6H PRN PO 01/09/18 08:15 UNV (Ativan Inj) 1 mg Q6H PRN IM 01/09/18 08:15 (Benadryl) 50 mg HS PRN PO 01/09/18 08:15 (Tylenol) 650 mg Q4H PRN PO 01/09/18 08:15 (Milk Of Magnesia Liq) 30 ml DAILY PRN PO 01/09/18 08:15 UNV (Mag-Al Plus Susp Liq) 30 ml Q6H PRN PO 01/09/18 08:15 (Habitrol 21 Mg Patch.24 Hr) 1 patch DAILY PRN T-DERMAL 01/09/18 08:15 UNV (Cogentin) 1 mg Q12H PRN PO 01/09/18 08:15 (Cogentin Inj) 1 mg Q12H PRN IM 01/09/18 08:15 (Lithotabs) 600 mg Q12HR PO 01/09/18 09:00 (D50w (Vial) Inj) 50 ml UNSCH PRN IV PUSH 01/09/18 08:15 (Glucagon Inj) 1 mg UNSCH PRN OTHER 01/09/18 08:15 (NovoLOG SUPPLEMENTAL SCALE) 1 ACHS SLIDING SCALE SQ 01/09/18 12:00 Patient's Strengths (min. 2) In a monitored setting. Verbally fluent. Physical Exam Physical examination completed by ED provider. On my examination today, the patient appears to be in no acute physical distress. No motor abnormalities noted. Labs and vitals reviewed: Vital Signs Vital Signs Date Time Temp Pulse Resp B/P (MAP) Pulse Ox O2 Delivery O2 Flow Rate FiO2 01/09/18 06:51 98.2 83 18 141/66 (91) 98 Room Air Lab Results Test 01/08/18 21:59 01/08/18 22:55 White Blood Count 11.8 TH/MM3 Red Blood Count 4.39 MIL/MM3 Hemoglobin 13.6 GM/DL Hematocrit 40.4 % Mean Corpuscular Volume 92.2 FL Mean Corpuscular Hemoglobin 30.9 PG Mean Corpuscular Hemoglobin Concent 33.5 % Red Cell Distribution Width 14.1 % Platelet Count 346 TH/MM3 Mean Platelet Volume 8.6 FL Neutrophils (%) (Auto) 58.3 % Lymphocytes (%) (Auto) 28.5 % Monocytes (%) (Auto) 8.0 % Eosinophils (%) (Auto) 4.2 % Basophils (%) (Auto) 1.0 % Neutrophils # (Auto) 6.9 TH/MM3 Lymphocytes # (Auto) 3.4 TH/MM3 Monocytes # (Auto) 0.9 TH/MM3 Eosinophils # (Auto) 0.5 TH/MM3 Basophils # (Auto) 0.1 TH/MM3 CBC Comment DIFF FINAL Differential Comment Blood Urea Nitrogen 20 MG/DL Creatinine 1.10 MG/DL Random Glucose 135 MG/DL Total Protein 7.7 GM/DL Albumin 3.3 GM/DL Calcium Level 8.8 MG/DL Alkaline Phosphatase 92 U/L Aspartate Amino Transf (AST/SGOT) 15 U/L Alanine Aminotransferase (ALT/SGPT) 29 U/L Total Bilirubin 0.2 MG/DL Sodium Level 141 MEQ/L Potassium Level 3.9 MEQ/L Chloride Level 107 MEQ/L Carbon Dioxide Level 25.9 MEQ/L Anion Gap 8 MEQ/L Estimat Glomerular Filtration Rate 52 ML/MIN Thyroid Stimulating Hormone 3rd Gen 1.560 uIU/ML Salicylates Level LESS THAN 1.7 MG/DL Acetaminophen Level 3.7 MCG/ML Wagram Level 0.2 MEQ/L Ethyl Alcohol Level LESS THAN 3 MG/DL Urine Color YELLOW Urine Turbidity CLEAR Urine pH 6.0 Urine Specific [place] 1.010 Urine Protein 30 mg/dL Urine Glucose (UA) NEG mg/dL Urine Ketones NEG mg/dL Urine Occult Blood NEG Urine Nitrite NEG Urine Bilirubin NEG Urine Urobilinogen LESS THAN 2.0 MG/DL Urine Leukocyte Esterase NEG Urine RBC 1 /hpf Urine WBC 2 /hpf Urine Squamous Epithelial Cells 2 /hpf Urine Mucus FEW /lpf Microscopic Urinalysis Comment CULT NOT INDICATED Urine Opiates Screen NEG Urine Barbiturates Screen NEG Urine Amphetamines Screen NEG Urine Benzodiazepines Screen NEG Urine Cocaine Screen NEG Urine Cannabinoids Screen NEG Mild leukocytosis without signs or symptoms of infection. This may represent benign neutrophilia associated with lithium treatment. TSH is within normal limits. GFR is somewhat decreased but within recent baseline, and I do note that Dr. Engle counseled the patient regarding the use of lithium in patients with renal dysfunction. Mental Status Examination Appearance: Disheveled Consciousness: Alert Orientation: x4 Motor Activity: Normal gait Speech: Unremarkable Language: Other (Rambling) Fund of Knowledge: Adequate Attention and Concentration: Easily Distracted Memory: Impaired (Psychosis interferes) Mood: Other ("Stable") Affect: Blunt Thought Process & Associations: Tangential Thought Content: Bizarre thinking, Delusional Hallucination Type: Other (Denies AVH) Delusion Type: Paranoid, Other (Grandiose) Suicidal Ideation: No (Unreliable to contract for safety) Suicidal Plan: No Suicidal Intention: No Homicidal Ideation: No Homicidal Plan: No Homicidal Intention: No Insight: Poor Judgment: Poor Assessment & Plan Problem List: (1) Schizoaffective disorder ICD Codes: F25.9 - Schizoaffective disorder, unspecified Status: Acute Assessment & Plan 52-year-old female with psychiatric history as detailed above who presents under Landa act. On my examination today, the patient presents with thought disorder and delusional material. I am concerned by her report that she has discontinued her antihyperglycemic medications. I do not believe that she is caring for herself properly presently and have suspicion that this decreased self-care may stem from her mental illness. I will plan to admit the patient to the inpatient psychiatric unit for safety, observation and stabilization. Admit inpatient. Involuntary status. I have completed first opinion. Consult for second opinion. Patient retains capacity to consent for medications. Resume lithium 600 mg twice daily with plans to check a lithium level after the appropriate interval. Ativan as needed for anxiety, Cogentin as needed for EPS , Benadryl as needed for sleep. Patient may benefit from addition of an antipsychotic, but I note that she has an extensive allergy list including several antipsychotics. Consulted the hospitalist for management of hyperglycemia. Vitals every shift. Counselor to see. Disposition planning. Estimated length of stay: 5-7 days. Discharge Planning Pending psychiatric stabilization Request HC Surrog/Guard Advoc?: No (not at this time) Problem Qualifiers (1) Schizoaffective disorder: Qualified Codes: F25.0 - Schizoaffective disorder, bipolar type Low Hung MD Jan 09, 2018 08:33
[2018-01-09] MEDS: LITHIUM CARBONATE 300 MG TAB PO SCH ×2 (09:00→21:00)
[2018-01-09 11:19] VITALS: BP 137/65; PULSE 89; RESP 18; TEMP 97.5; O2SAT 99
--- NOTE | 2018-01-09 11:42 | PD.CONS ---
[facility] Reason for Consult Management of hyperglycemia patient with history of diabetes type 2 Primary Care Physician Patient states states Dr. Gordon Diagnoses: History of Present Illness Patient is a 52-year-old female admitted under psychiatry service under Landa act. Apparently patient states that her stepbrother brought her in here who called police on [employer]. Per patient she states she did not do anything at all all she wanted was "to be Patient denies any fever chest pain or shortness of breath patient with history of diabetes type 2. Review of records here last June 2017 her hemoglobin A1c is 18.2. She was placed on insulin and metformin. About 4 months ago patient decided to be in charge of her health and went into a diet and weight loss program. She states that she lost 20 pounds and on file follow-up her hemoglobin A1c was 7.66 weeks ago. It is not clear if she was told to stop insulin and metformin but patient at bedside refuses blood glucose monitoring and sliding scale insulin and to start regimen. She states that she she does not want anything started and her blood sugars has been good. Patient states good hypoglycemic awareness. Patient denies any chest pain shortness of breath but denies any tingling numbness of the extremities. She is post menopausal. [facility] is consulted for medical management of her diabetes type 2 her blood sugar random on BMP was 137. When reinforced about diabetes education patient states "I know all about it, refused to discuss about any medications. Review of Systems Constitutional: DENIES: Fever, Weight loss, Chills, Change in appetite Eyes: DENIES: Blurred vision, Double Vision Ears, nose, mouth, throat: DENIES: Tinnitus, Ear Pain, Epistaxis, Odynophagia Respiratory: DENIES: Cough, Hemoptysis, Sputum production, Shortness of breath Cardiovascular: DENIES: Chest pain, Palpitations, Dyspnea on Exertion, Lower Extremity Edema, Orthopnea Gastrointestinal: DENIES: Black stools, Bloody stools, Difficulty Swallowing, Anorexia Genitourinary: DENIES: Urgency, Hematuria, Vaginal discharge Musculoskeletal: DENIES: Joint pain, Stiffness Integumentary: DENIES: Pruritus Hematologic/lymphatic: DENIES: Bruising Immunologic/allergic: DENIES: Urticaria Neurologic: DENIES: Headache, Speech Problems, Tremor Psychiatric: DENIES: Suicidal Ideation, Homicidal Ideation Past Family Social History Allergies: Coded Allergies: chlorpromazine (Unverified Allergy, Severe, SOB, 07/08/17) fluphenazine (Unverified Allergy, Severe, 07/08/17) haloperidol (Unverified Allergy, Severe, 07/08/17) iodine (Unverified Allergy, Severe, HIVES, 07/08/17) olanzapine (Unverified Allergy, Severe, SOB, 07/08/17) potassium iodide (Unverified Allergy, Severe, HIVES, 07/08/17) povidone-iodine (Unverified Allergy, Severe, HIVES, 07/08/17) sodium iodide (Unverified Allergy, Severe, HIVES, 07/08/17) sodium iodide (Unverified Allergy, Severe, HIVES, 07/08/17) ziprasidone (Unverified Allergy, Severe, "SOB-TARDIVE DYSKINESIA", ) Sulfa (Sulfonamide Antibiotics) (Unverified Allergy, Mild, 07/08/17) lurasidone (Verified Allergy, Unknown, 07/08/17) shellfish derived (Unverified Allergy, Unknown, 07/08/17) Past Medical History Diabetes type 2 Hyperlipidemia Past Surgical History A 12 years old states had some bowel resection and found "maggots" Fifth finger surgery right Reported Medications Reportedly on NovoLog 10 units 3 times daily Metformin 500 twice daily Levemir 30 by twice daily Family History Positive family history of diabetes Physical Exam Vital Signs Vital Signs Date Time Temp Pulse Resp B/P (MAP) Pulse Ox O2 Delivery O2 Flow Rate FiO2 01/09/18 11:19 97.5 89 18 137/65 (89) 99 01/09/18 08:45 01/09/18 06:51 98.2 83 18 141/66 (91) 98 Room Air 01/09/18 02:15 97.1 92 18 126/68 (87) 97 Room Air 01/08/18 21:52 98.8 112 19 177/71 (106) 97 Room Air Physical Exam GENERAL: in no apparent distress. SKIN: No rashes, ecchymoses or lesions. Cool and dry. HEAD: Atraumatic. Normocephalic. No temporal or scalp tenderness. EYES: Pupils equal round and reactive. Extraocular motions intact. No scleral icterus. No injection or drainage. ENT: Nose without bleeding, purulent drainage or septal hematoma. Throat without erythema, tonsillar hypertrophy or exudate. Uvula midline. Airway patent. NECK: Trachea midline. No JVD or lymphadenopathy. Supple, nontender, no meningeal signs. CARDIOVASCULAR: Regular rate and rhythm without murmurs, gallops, or rubs. RESPIRATORY: Clear to auscultation. Breath sounds equal bilaterally. No wheezes , rales, or rhonchi. GASTROINTESTINAL: Abdomen soft, non-tender, nondistended. . No guarding. MUSCULOSKELETAL: Extremities without clubbing, cyanosis, or edema. No joint tenderness, effusion, or edema noted. No calf tenderness. Negative Homans sign bilaterally. NEUROLOGICAL: Awake and alert. Cranial nerves II through XII intact. Motor and sensory grossly within normal limits. Five out of 5 muscle strength in all muscle groups. Normal speech. Gait steady Laboratory Laboratory Tests Test 01/08/18 21:59 01/08/18 22:55 White Blood Count 11.8 Red Blood Count 4.39 Hemoglobin 13.6 Hematocrit 40.4 Mean Corpuscular Volume 92.2 Mean Corpuscular Hemoglobin 30.9 Mean Corpuscular Hemoglobin Concent 33.5 Red Cell Distribution Width 14.1 Platelet Count 346 Mean Platelet Volume 8.6 Neutrophils (%) (Auto) 58.3 Lymphocytes (%) (Auto) 28.5 Monocytes (%) (Auto) 8.0 Eosinophils (%) (Auto) 4.2 Basophils (%) (Auto) 1.0 Neutrophils # (Auto) 6.9 Lymphocytes # (Auto) 3.4 Monocytes # (Auto) 0.9 Eosinophils # (Auto) 0.5 Basophils # (Auto) 0.1 CBC Comment DIFF FINAL Differential Comment Blood Urea Nitrogen 20 Creatinine 1.10 Random Glucose 135 Total Protein 7.7 Albumin 3.3 Calcium Level 8.8 Alkaline Phosphatase 92 Aspartate Amino Transf (AST/SGOT) 15 Alanine Aminotransferase (ALT/SGPT) 29 Total Bilirubin 0.2 Sodium Level 141 Potassium Level 3.9 Chloride Level 107 Carbon Dioxide Level 25.9 Anion Gap 8 Estimat Glomerular Filtration Rate 52 Thyroid Stimulating Hormone 3rd Gen 1.560 Salicylates Level LESS THAN 1.7 Acetaminophen Level 3.7 [place] Level 0.2 Ethyl Alcohol Level LESS THAN 3 Urine Color YELLOW Urine Turbidity CLEAR Urine pH 6.0 Urine Specific [place] 1.010 Urine Protein 30 Urine Glucose (UA) NEG Urine Ketones NEG Urine Occult Blood NEG Urine Nitrite NEG Urine Bilirubin NEG Urine Urobilinogen LESS THAN 2.0 Urine Leukocyte Esterase NEG Urine RBC 1 Urine WBC 2 Urine Squamous Epithelial Cells 2 Urine Mucus FEW Microscopic Urinalysis Comment CULT NOT INDICATED Urine Opiates Screen NEG Urine Barbiturates Screen NEG Urine Amphetamines Screen NEG Urine Benzodiazepines Screen NEG Urine Cocaine Screen NEG Urine Cannabinoids Screen NEG Result Diagram: 01/08/18215801/08/182158 Assessment and Plan Assessment and Plan 52-year-old female admitted under psychiatry service [facility] Diabetes type 2 Diabetes teaching reinforced will get nutritional consult for reinforcement. 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 about 4 month ago Commended her for and reinforced goal for A1C and to reccheck Check blood sugars 3 times daily at bedtime with sliding scale Check a hemoglobin A1c. ADA diet Of note patient is very resistant to any form of monitoring. Even got upset. Patient states she got all glucometer and equipment at home for monitoring. Acute kidney injury. Prerenal in ratio. Patient states taking p.o. fluids well denies any nausea vomiting or diarrhea encourage p.o. fluids recheck in a.m. If discharged needs to follow-up with PCP Thank you for this consult will follow patient in-house with you Jean-Paul Rothman MD Jan 09, 2018 11:42
[2018-01-09] MEDS: INSULIN ASPART SUPPLEMENTAL SCALE SQ SCH ×3 (12:00→20:17)
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
[2018-01-09 18:00] VITALS: BP 141/71; PULSE 99; RESP 17; TEMP 99; O2SAT 95
[2018-01-10] MEDS: ACETAMINOPHEN 325 MG TAB PO PRN ×3 (05:13→23:56)
[2018-01-10 05:51] VITALS: BP 96/53; PULSE 87; RESP 16; TEMP 98.2; O2SAT 96
[2018-01-10] MEDS: INSULIN ASPART SUPPLEMENTAL SCALE SQ SCH ×4 (08:00→20:39)
[2018-01-10] MEDS: LITHIUM CARBONATE 300 MG TAB PO SCH ×2 (09:00→20:15)
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
[2018-01-10] MEDS ORDERED: PNEUMOCOCCAL POLYVALENT INJ 25 MCG/0.5 ML SYR IM ONE (10:00)
[2018-01-10] MEDS ORDERED: INFLUENZA VIRUS VACCINE (QUADRIVALENT) 0.5 ML SYR IM ONE (10:00)
--- NOTE | 2018-01-10 12:36 | HHI.PYPN ---
Subjective Chief Complaint: Exacerbation of SAD Remarks Patient seen and examined with nurse. Chart reviewed. Case discussed with nursing staff who reports patient is responding to internal stimuli and tells nursing staff that she is responding to people talking in the vents. Martell has not been given to patient as the consent form completed in the emergency room yesterday was misfiled. I located the consent form on the chart and have given this to the nurse. Case discussed in treatment team. On my examination today, the patient declines to sit for interview noting "I prefer to stand." Patient is agreeable to starting lithium noting "it helps keep my hear regulated." She adamantly refuses any antipsychotic medication when I suggest it to her, noting that all of them cause tardive dyskinesia for her. Unclear if this assertion is reality based. She further says in an imperious tone, "we' re gonna stay with the lithium is what we're gonna do." She denies AVH but is frankly responding to internal stimuli following my evaluation and is pacing around the unit. Patient continues to refuse bedside glucose testing, and I have provided her with education regarding the need for such testing although she intends to continue to refuse it. No physical complaints. Review of Systems ROS Limitations: Psychotic, Poor Historian Except as stated in HPI: all other systems reviewed are Neg Mental Status Examination Appearance: Disheveled (Grooming somewhat improved today) Consciousness: Alert Orientation: x4 Motor Activity: Normal gait, Other (No motor abnormalities noted) Speech: Unremarkable Language: Adequate Fund of Knowledge: Adequate Attention and Concentration: Easily Distracted Memory: Impaired (Psychosis interferes) Mood: Other (Somewhat dysphoric) Affect: Blunt Thought Process & Associations: Circumstantial (Somewhat more organized today) Thought Content: Bizarre thinking, Delusional Hallucination Type: Other (Responding to internal stimuli) Delusion Type: Paranoid Suicidal Ideation: No Suicidal Plan: No Suicidal Intention: No Homicidal Ideation: No Homicidal Plan: No Homicidal Intention: No Insight: Poor Judgment: Poor Results Labs Labs reviewed Vitals/IOs Vital Signs Date Time Temp Pulse Resp B/P (MAP) Pulse Ox O2 Delivery O2 Flow Rate FiO2 01/10/18 05:51 98.2 87 16 96/53 (67) 96 01/09/18 06:51 Room Air Intake and Output 01/10/18 01/10/18 01/11/18 08:00 16:00 00:00 Intake Total 360 ml Balance 360 ml Assessment & Plan Problem List: (1) Schizoaffective disorder ICD Codes: F25.9 - Schizoaffective disorder, unspecified Status: Acute Assessment & Plan Initiate lithium 600 mg twice daily today with plans to check a level after the appropriate interval. I do believe the patient would benefit from an antipsychotic but she is presently refusing this. Unclear if we will be able to obtain adequate control of patient's psychiatric symptoms with lithium monotherapy. Hospitalist input noted and appreciated. Continue to monitor on inpatient unit. Continue other medications and care as ordered. Justification for Cont. Inpt. Impairment in reality construction. High risk for decompensation in less restrictive environment. Discharge Planning Pending psychiatric stabilization Request HC Surrog/Guard Advoc?: No (not at this time) Problem Qualifiers (1) Schizoaffective disorder: Qualified Codes: F25.0 - Schizoaffective disorder, bipolar type Low Hung MD Jan 10, 2018 12:36
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
[2018-01-10 17:54] VITALS: BP 132/57; PULSE 101; RESP 20; TEMP 98.6; O2SAT 96
[2018-01-10] MEDS: diphenhydrAMINE HCL 50 MG CAP PO PRN (20:15)
[2018-01-11 05:37] VITALS: BP 108/53; PULSE 84; RESP 18; TEMP 98.1; O2SAT 99
[2018-01-11] MEDS: ACETAMINOPHEN 325 MG TAB PO PRN ×3 (06:47→21:58)
[2018-01-11] MEDS: INSULIN ASPART SUPPLEMENTAL SCALE SQ SCH ×4 (08:00→21:00)
[2018-01-11] MEDS: LITHIUM CARBONATE 300 MG TAB PO SCH (08:53)
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
--- NOTE | 2018-01-11 15:03 | HHI.PR ---
Subjective Remarks Follow-up visit for diabetes, acute kidney injury, and hypertension. Patient seen in the day room today watching a movie, ambulating without assistive devices. She reports that she is feeling better every day and states "The rest and Tylenol have really decompressed my spine". She denies any fevers, chills, nausea, vomiting, diarrhea, constipation, shortness of breath, cough, or chest pain. She also states that she is requesting a new psychiatrist because the current psychiatrist who is seeing her stating that she is psychotic. Objective Vitals Vital Signs Date Time Temp Pulse Resp B/P (MAP) Pulse Ox O2 Delivery O2 Flow Rate FiO2 01/11/18 05:37 98.1 84 18 108/53 (71) 99 01/10/18 17:54 98.6 101 20 132/57 (82) 96 I/O 01/10/18 01/10/18 01/10/18 01/11/18 01/11/18 01/11/18 07:00 15:00 23:00 07:00 15:00 23:00 Intake Total 360 ml 600 ml 240 ml Balance 360 ml 600 ml 240 ml Intake Oral 360 ml 600 ml 240 ml Result Diagram: 01/08/18215801/08/182158 Objective Remarks GENERAL: Well developed obese female in no apparent distress. SKIN: Cool and dry. HEAD: Atraumatic. Normocephalic. EYES: Pupils equal round and reactive. No scleral icterus. No injection or drainage. ENT: Nose without bleeding, purulent drainage. Airway patent. NECK: Trachea midline. CARDIOVASCULAR: Regular rate and rhythm without murmurs, gallops, or rubs. RESPIRATORY: Clear to auscultation. Breath sounds equal bilaterally. No wheezes , rales, or rhonchi. GASTROINTESTINAL: Abdomen soft, non-tender, nondistended. No guarding. Normoactive bowel sounds. MUSCULOSKELETAL: Extremities without clubbing, cyanosis, or edema. No joint tenderness, effusion, or edema noted. NEUROLOGICAL: Awake and alert. Cranial nerves II through XII grossly intact. Motor and sensory grossly within normal limits. Five out of 5 muscle strength in all muscle groups. Normal speech. Gait steady A/P Assessment and Plan 52-year-old female admitted under psychiatry service [place] act Schizoaffective disorder -Treatment per psychiatry -Dr.Chaiffetz that does not believe patient has capacity to consent for medical treatment, request for HCS/GA in [place] scheduled for tomorrow. Psychotropics placed on hold. Diabetes type 2 - Patient repots being on short and long insulin prior, her last A1C was 7.0 , per her reports. - Diabetes teaching reinforced, nutritional consult for reinforcement. - Diabetic diet, Accu-checks with [facility], patient has been refusing Accu-checks and labs - Check a hemoglobin A1c, has not been drawn - Discussed with nurse, planned for [place] tomorrow. Acute kidney injury. Prerenal in ratio. - Patient repots drinking plenty of fluids and states she feels fine. DVT prophylaxis-ambulation Discussed with nurse. Lillian Boyle Jan 11, 2018 15:03
[2018-01-12] MEDS: diphenhydrAMINE HCL 50 MG CAP PO PRN (01:03)
[2018-01-12 05:46] VITALS: BP 161/57; PULSE 86; RESP 16; TEMP 97.1; O2SAT 98
[2018-01-12] MEDS: INSULIN ASPART SUPPLEMENTAL SCALE SQ SCH ×4 (08:00→21:00)
[2018-01-12] MEDS: ACETAMINOPHEN 325 MG TAB PO PRN (09:10)
--- NOTE | 2018-01-12 09:41 | HHI.PYPN ---
Subjective Chief Complaint: Exacerbation of SAD Remarks Endeavored to see and evaluate patient today with nurse. Chart reviewed: patient continues to refuse accu-cheks/sliding scale. Case discussed with nursing staff who reports patient continues to verbalize extensive delusional material, for example saying that her mother is keeping her here because her mother is in love with her uncle and both of them are in league with the [employer]. She also reported to nurse that her son was conspiring with someone on the unit for unclear purposes. When I endeavor to interview the patient, she is oppositional. She refuses interview, saying "No! " and walking away. Observing the patient on the unit, she remains quite guarded with suspected ongoing paranoia. She remains internally stimulated. No physical complaints. Review of Systems ROS Limitations: Uncooperative, Psychotic, Poor Historian Other Limited ROS today. Mental Status Examination Appearance: Other (Fair hygiene and grooming) Consciousness: Alert Orientation: x4 Motor Activity: Normal gait, Other (No motor abnormalities noted) Speech: Unremarkable Language: Other (Limited sample today) Fund of Knowledge: Adequate Attention and Concentration: Easily Distracted Mood: Other (Dysphoric) Affect: Other (Restricted) Thought Process & Associations: Other (Limited sample) Thought Content: Hallucinations, Delusional Hallucination Type: Other (Internally preoccupied) Delusion Type: Other (Guarded, suspect ongoing paranoia) Suicidal Ideation: No (No SI voiced) Homicidal Ideation: No (No HI voiced) Insight: Poor Judgment: Poor Results Labs Labs reviewed. No new labs. Vitals/IOs Vital Signs Date Time Temp Pulse Resp B/P (MAP) Pulse Ox O2 Delivery O2 Flow Rate FiO2 01/12/18 05:46 97.1 86 16 161/57 (91) 98 01/09/18 06:51 Room Air Assessment & Plan Problem List: (1) Schizoaffective disorder ICD Codes: F25.9 - Schizoaffective disorder, unspecified Status: Acute Assessment & Plan Patient is refusing interview today. Her case was presented to the [place] court, and the patient was retained on the unit by the boiler mechanic with a [employer] guardian. Given my limited interview with the patient and given that Dr. Engle will be assuming care of the patient per patient preference, I will defer selection of psychotropic to Dr. Engle. I do think the patient would benefit from an antipsychotic, and I note the patient had some improvement in the past with Invega Sustenna. To consider returning to this or similar agent. Continue to monitor on the inpatient unit. Continue other medications and care as ordered. Justification for Cont. Inpt. Impairment in reality construction. High risk for decompensation in less restrictive environment. Discharge Planning Transfer care to Dr. Engle. Discharge plan as per Dr. Engle. Request HC Surrog/Guard Advoc?: Yes Problem Qualifiers (1) Schizoaffective disorder: Qualified Codes: F25.0 - Schizoaffective disorder, bipolar type Low Hung MD Jan 12, 2018 09:41
--- NOTE | 2018-01-12 14:01 | HHI.PR ---
Subjective Remarks Follow-up visit for DM II, MOHIT, and HTN. Discussed with nurse reports patient had mental health court today, she is also being transferred from to Dr. Engle's care. Nursing reports that patient believed one of the staff nurses helped deliver her baby. She is seen and examined in room. She reports that she is doing "much better" and states that she has begun to heal and that the lithium that was burning her cerebral cortex is no longer there. She denies any fevers, chills, nausea, vomiting, diarrhea, headaches, dizziness , shortness of breath, cough, dysuria, or frequency. Continues to be reluctant to believe that she needs monitoring of blood sugars due to her diabetes. Objective Vitals Vital Signs Date Time Temp Pulse Resp B/P (MAP) Pulse Ox O2 Delivery O2 Flow Rate FiO2 01/12/18 05:46 97.1 86 16 161/57 (91) 98 I/O 01/11/18 01/11/18 01/11/18 01/12/18 01/12/18 01/12/18 07:00 15:00 23:00 07:00 15:00 23:00 Intake Total 240 ml Balance 240 ml Intake Oral 240 ml Result Diagram: 01/08/18215801/08/182158 Objective Remarks GENERAL: Well developed obese female in no apparent distress. SKIN: Cool and dry. HEAD: Atraumatic. Normocephalic. EYES: Pupils equal round and reactive. No scleral icterus. No injection or drainage. ENT: Nose without bleeding, purulent drainage. Airway patent. NECK: Trachea midline. CARDIOVASCULAR: Regular rate and rhythm without murmurs, gallops, or rubs. RESPIRATORY: Clear to auscultation. Breath sounds equal bilaterally. No wheezes , rales, or rhonchi. GASTROINTESTINAL: Abdomen soft, non-tender, nondistended. No guarding. Normoactive bowel sounds. MUSCULOSKELETAL: Extremities without clubbing, cyanosis, or edema. No joint tenderness, effusion, or edema noted. NEUROLOGICAL: Awake and alert. Cranial nerves II through XII grossly intact. Motor and sensory grossly within normal limits. Five out of 5 muscle strength in all muscle groups. Normal speech. Gait steady A/P Assessment and Plan 52-year-old female admitted under psychiatry service [place] act Schizoaffective disorder -Treatment per psychiatry - Care being transferred from to per patients request. Psychotropics placed on hold. Had mental health court today. Will need to discuss with tomorrow whether he believes patient has capacity to make decisions such as refusing labs in treatment. Diabetes type 2 - Patient repots being on short and long insulin prior, her last A1C was 7.0 , per her reports. - Diabetes teaching reinforced, nutritional consult for reinforcement. - Diabetic diet, Accu-checks with [facility], patient has been refusing Accu-checks and labs - Check a hemoglobin A1c, has not been drawn Acute kidney injury. Prerenal in ratio. - Patient repots drinking plenty of fluids and states she feels fine. DVT prophylaxis-ambulation Discussed with nurse and patient. Lillian Boyle Jan 12, 2018 14:01
[2018-01-12 18:01] VITALS: BP 111/59; PULSE 86; RESP 17; TEMP 98.2; O2SAT 98
[2018-01-13 05:04] VITALS: BP 112/64; PULSE 85; RESP 16; TEMP 98; O2SAT 96
[2018-01-13] MEDS: INSULIN ASPART SUPPLEMENTAL SCALE SQ SCH ×4 (08:00→20:57)
--- NOTE | 2018-01-13 13:53 | HHI.PR ---
Subjective Remarks Follow-up visit for DM II, MOHIT, and HTN. Patient seen and examined ambulating in the hallway. She reports that she is feeling well and feels that the food and rest has helped her greatly. She also reports that the bed is very comfortable and states that the food is also making her stronger. She denies any fevers, chills, nausea,, diarrhea, headaches, dizziness, cough or shortness of breath. Discussed with nurse, patient had court appointed guardian yesterday. Psychiatrist, Dr. King evaluation pending today. Patient continues to refuse medications, as well as Accu-Cheks. Objective Vitals Vital Signs Date Time Temp Pulse Resp B/P (MAP) Pulse Ox O2 Delivery O2 Flow Rate FiO2 01/13/18 05:04 98.0 85 16 112/64 (80) 96 01/12/18 18:01 98.2 86 17 111/59 (76) 98 Objective Remarks GENERAL: Well developed obese female in no apparent distress. SKIN: Cool and dry. HEAD: Atraumatic. Normocephalic. EYES: Pupils equal round and reactive. No scleral icterus. No injection or drainage. ENT: Nose without bleeding, purulent drainage. Airway patent. NECK: Trachea midline. CARDIOVASCULAR: Regular rate and rhythm without murmurs, gallops, or rubs. RESPIRATORY: Clear to auscultation. Breath sounds equal bilaterally. No wheezes , rales, or rhonchi. GASTROINTESTINAL: Abdomen soft, non-tender, nondistended. No guarding. Normoactive bowel sounds. MUSCULOSKELETAL: Extremities without clubbing, cyanosis, or edema. No joint tenderness, effusion, or edema noted. NEUROLOGICAL: Awake and alert. Cranial nerves II through XII grossly intact. Motor and sensory grossly within normal limits. Five out of 5 muscle strength in all muscle groups. Normal speech. Gait steady A/P Assessment and Plan 52-year-old female admitted under psychiatry service [place] act Schizoaffective disorder -Treatment per psychiatry - Care being transferred from to per patients request. Mental health court yesterday, with appointed guardian. Diabetes type 2 - Patient repots being on short and long insulin prior, her last A1C was 7.0 , per her reports. - Diabetes teaching reinforced, nutritional consult for reinforcement. - Diabetic diet, Accu-checks with [facility], patient has been refusing Accu-checks and labs - Check a hemoglobin A1c, has not been drawn Acute kidney injury. Prerenal in ratio. - Patient repots drinking plenty of fluids and states she feels fine. DVT prophylaxis-ambulation Patient is not making any acute complaints medically, also appears stable. She is also been refusing Accu-Cheks and lab work. Recently had appointed guardian yesterday, pending new psychiatrist evaluation today. [facility] will sign off, please reconsult if needed once patient is agreeable to completing labs or Accu- Cheks for ongoing medical management. Discussed with nurse. Lillian Boyle Jan 13, 2018 13:53
--- NOTE | 2018-01-13 14:43 | PD.PSY.CON ---
Provisional Diagnosis Admission Date Jan 09, 2018 at 08:07 [place] I. 1. Schizoaffective disorder, bipolar type, acute exacerbation [place] II. Deferred History of Present Illness Service Psychiatry Consult Requested By Psychiatry Reason for Consult Second opinion Primary Care Physician Unknown HPI The patient is a 52-year-old woman, domicile with her mother, unemployed, single, supported by [facility], with psychiatric history of bipolar disorder, multiple psychiatric hospitalizations, last hospitalization was here in [place] in 2017, she has 2 previous suicidal attempts by overdoses, established outpatient care in [facility], under a [place] act by law enforcement alleging that the patient is off of her prescribed medications and is hallucinating. Consulted for second opinion. I saw the patient in consult. 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 kind of disorganized. She denies suicidal and homicidal ideation, she denies visual and auditory hallucinations per Review of Systems Except as stated in HPI: all other systems reviewed are Neg Past Family Social History Coded Allergies: chlorpromazine (Unverified Allergy, Severe, SOB, 07/08/17) fluphenazine (Unverified Allergy, Severe, 07/08/17) haloperidol (Unverified Allergy, Severe, 07/08/17) iodine (Unverified Allergy, Severe, HIVES, 07/08/17) olanzapine (Unverified Allergy, Severe, SOB, 07/08/17) potassium iodide (Unverified Allergy, Severe, HIVES, 07/08/17) povidone-iodine (Unverified Allergy, Severe, HIVES, 07/08/17) sodium iodide (Unverified Allergy, Severe, HIVES, 07/08/17) sodium iodide (Unverified Allergy, Severe, HIVES, 07/08/17) ziprasidone (Unverified Allergy, Severe, "SOB-TARDIVE DYSKINESIA", ) Sulfa (Sulfonamide Antibiotics) (Unverified Allergy, Mild, 07/08/17) lurasidone (Verified Allergy, Unknown, 07/08/17) shellfish derived (Unverified Allergy, Unknown, 07/08/17) Active Scripts [place] Carbonate ([place] Carbonate) 300 Mg Tab, 600 MG PO Q12HR for health, # 60 TAB 1 Refill Prov:Bassam Engle MD 07/14/17 Discontinued Scripts Metformin (Metformin) 500 Mg Tab, 500 MG PO BIDPC for Blood Sugar Management, # 60 TAB 0 Refills Prov:Iftikhar Tijerina MD 07/14/17 Insulin Human Regular Inj (Novolin R Inj) 1,000 Unit/10 Ml Vial, 2-10 UNITS SQ DIRECTED for Blood Sugar Management, #10 ML 0 Refills sugars less than 150,(0) units; sugars 150-199,(2)unit; sugars 200-249,(4)units; sugars 250-299,(6) units; sugars 300-349,(8)units; sugars equal to or greater than 350,(10)units Prov:Iftikhar Tijerina MD 07/14/17 Lancets (Lancets) 1 Mis Mis, EA .ROUTE DIRECTED for Blood Sugar Management, # 1 0 Refills Prov:Iftikhar Tijerina MD 07/14/17 Blood Glucose Monitoring W/Device (Glucocom Blood Glucose Mo W/Device) 1 Kit Kit , KIT .ROUTE DIRECTED for Blood Sugar Management, #1 Check blood sugar four times daily. Before meals and 2 hrs after the biggest meal of the day. Prov:Iftikhar Tijerina MD 07/14/17 Insulin Detemir Inj (Levemir Inj) 1,000 unit/ 10 ML Vial, 30 UNITS SQ Q12HR for 30 Days, INJECTION Do not mix with any other Insulin. Prov:Iftikhar Tijerina MD 07/14/17 Current Medications Medications (Trade) Dose Ordered Sig/Omkar Route Start Time Stop Time Status Last Admin (Ativan) 1 mg Q6H PRN PO 01/09/18 08:15 Future Hold (Ativan Inj) 1 mg Q6H PRN IM 01/09/18 08:15 Future Hold (Benadryl) 50 mg HS PRN PO 01/09/18 08:15 01/12/18 01:03 (Tylenol) 650 mg Q4H PRN PO 01/09/18 08:15 01/12/18 09:10 (Milk Of Magnesia Liq) 30 ml DAILY PRN PO 01/09/18 08:15 (Mag-Al Plus Susp Liq) 30 ml Q6H PRN PO 01/09/18 08:15 (Habitrol 21 Mg Patch.24 Hr) 1 patch DAILY PRN T-DERMAL 4/16/18 08:15 (Cogentin) 1 mg Q12H PRN PO 01/09/18 08:15 (Cogentin Inj) 1 mg Q12H PRN IM 01/09/18 08:15 (Lithotabs) 600 mg Q12HR PO 01/09/18 09:00 Future Hold 01/10/18 20:15 (D50w (Vial) Inj) 50 ml UNSCH PRN IV PUSH 01/09/18 08:15 (Glucagon Inj) 1 mg UNSCH PRN OTHER 01/09/18 08:15 (NovoLOG SUPPLEMENTAL SCALE) 1 ACHS SLIDING SCALE SQ 01/09/18 12:00 Patient's Strengths (min. 2) In a monitored setting. Verbally fluent. Physical Exam Vital Signs Vital Signs Date Time Temp Pulse Resp B/P (MAP) Pulse Ox O2 Delivery O2 Flow Rate FiO2 01/13/18 05:04 98.0 85 16 112/64 (80) 96 Mental Status Examination Appearance: Other (Fair hygiene and grooming) Consciousness: Alert Orientation: x4 Motor Activity: Normal gait, Other (No motor abnormalities noted) Speech: Unremarkable Language: Other (Limited sample today) Fund of Knowledge: Adequate Attention and Concentration: Easily Distracted Mood: Other (Dysphoric) Affect: Other (Restricted) Thought Process & Associations: Other (Limited sample) Thought Content: Hallucinations, Delusional Hallucination Type: Other (Internally preoccupied) Delusion Type: Other (Guarded, suspect ongoing paranoia) Suicidal Ideation: No (No SI voiced) Homicidal Ideation: No (No HI voiced) Insight: Poor Judgment: Poor Assessment & Plan Problem List: (1) Schizoaffective disorder ICD Codes: F25.9 - Schizoaffective disorder, unspecified Status: Acute Assessment & Plan: I have seen and examined this patient, reviewed documentation, I agree and concur with Dr. Hung's assessment and plan. Consult appreciated. Assessment & Plan Estimated LOS: days Request HC Surrog/Guard Advoc?: Yes Problem Qualifiers (1) Schizoaffective disorder: Qualified Codes: F25.0 - Schizoaffective disorder, bipolar type Bassam Engle MD Jan 13, 2018 14:43
[2018-01-13 18:02] VITALS: BP 134/86; PULSE 99; RESP 16; TEMP 98.3; O2SAT 97
[2018-01-14] MEDS: ACETAMINOPHEN 325 MG TAB PO PRN (00:29)
[2018-01-14 06:08] VITALS: BP 115/70; PULSE 83; RESP 18; TEMP 98.1; O2SAT 96
[2018-01-14] MEDS: INSULIN ASPART SUPPLEMENTAL SCALE SQ SCH ×4 (08:00→21:00)
--- NOTE | 2018-01-14 14:07 | HHI.PYPN ---
Subjective Chief Complaint: Exacerbation of SAD Remarks Patient was seen and case discussed with nursing. Patient remains acutely psychotic. She is grandiose believing that she is working on her neuropsychological degree. She then says that a doctor here is paying for her books and education. She says that he comes by sometimes to quiz her on her studying. She hears voices from the vents in her room. Insight is poor concerning the symptoms Mental Status Examination Appearance: Other (Fair hygiene and grooming) Consciousness: Alert Orientation: x4 Motor Activity: Normal gait, Other (No motor abnormalities noted) Speech: Unremarkable Language: Other (Limited sample today) Fund of Knowledge: Adequate Attention and Concentration: Easily Distracted Mood: Other (Dysphoric) Affect: Other (Restricted) Thought Process & Associations: Circumstantial Thought Content: Hallucinations, Delusional Hallucination Type: Other (Internally preoccupied) Delusion Type: Bizarre, Other (Guarded, suspect ongoing paranoia) Suicidal Ideation: No (No SI voiced) Suicidal Plan: No Suicidal Intention: No Homicidal Ideation: No (No HI voiced) Insight: Poor Judgment: Poor Results Vitals/IOs Vital Signs Date Time Temp Pulse Resp B/P (MAP) Pulse Ox O2 Delivery O2 Flow Rate FiO2 01/14/18 06:08 98.1 83 18 115/70 (85) 96 Intake and Output 01/14/18 01/14/18 01/14/18 07:59 15:59 23:59 Intake Total 360 ml Balance 360 ml Assessment & Plan Problem List: (1) Schizoaffective disorder ICD Codes: F25.9 - Schizoaffective disorder, unspecified Status: Acute Assessment & Plan Continue current treatment plan Justification for Cont. Inpt. Patient would decompensate in a less restrictive setting Request HC Surrog/Guard Advoc?: Yes Problem Qualifiers (1) Schizoaffective disorder: Qualified Codes: F25.0 - Schizoaffective disorder, bipolar type Rishi Fleming DO Jan 14, 2018 14:07
[2018-01-14 18:13] VITALS: BP 117/67; PULSE 88; RESP 18; TEMP 97.7; O2SAT 98
[2018-01-15] MEDS: INSULIN ASPART SUPPLEMENTAL SCALE SQ SCH ×4 (08:00→20:43)
--- NOTE | 2018-01-15 10:30 | HHI.PYPN ---
Subjective Chief Complaint: Exacerbation of SAD Remarks Patient was seen and case discussed with nursing. Patient is not on any antipsychotics this weekend for an unknown reason. When I spoke to patient, she refuses medications stating "I want to heal naturally, I do not need medications." She remains with various bizarre grandiose delusions. Insight is quite poor Mental Status Examination Appearance: Other (Fair hygiene and grooming) Consciousness: Alert Orientation: x4 Motor Activity: Normal gait, Other (No motor abnormalities noted) Speech: Unremarkable Language: Other (Limited sample today) Fund of Knowledge: Adequate Attention and Concentration: Easily Distracted Mood: Other (Dysphoric) Affect: Other (Restricted) Thought Process & Associations: Circumstantial Thought Content: Hallucinations, Delusional Hallucination Type: Other (Internally preoccupied) Delusion Type: Bizarre, Other (Guarded, suspect ongoing paranoia) Suicidal Ideation: No (No SI voiced) Suicidal Plan: No Suicidal Intention: No Homicidal Ideation: No (No HI voiced) Insight: Poor Judgment: Poor Results Vitals/IOs Vital Signs Date Time Temp Pulse Resp B/P (MAP) Pulse Ox O2 Delivery O2 Flow Rate FiO2 01/14/18 18:13 97.7 88 18 117/67 (84) 98 Assessment & Plan Problem List: (1) Schizoaffective disorder ICD Codes: F25.9 - Schizoaffective disorder, unspecified Status: Acute Assessment & Plan Continue current treatment plan Justification for Cont. Inpt. Patient would decompensate in a less restrictive setting Request HC Surrog/Guard Advoc?: Yes Problem Qualifiers (1) Schizoaffective disorder: Qualified Codes: F25.0 - Schizoaffective disorder, bipolar type Rishi Fleming DO Jan 15, 2018 10:30
[2018-01-16 06:31] VITALS: BP 123/58; PULSE 91; RESP 15; TEMP 98; O2SAT 97
[2018-01-16] MEDS: INSULIN ASPART SUPPLEMENTAL SCALE SQ SCH ×4 (08:00→21:00)
--- NOTE | 2018-01-16 12:06 | HHI.PYPN ---
Subjective Chief Complaint: Exacerbation of SAD Remarks The patient was seen today for psychiatric reevaluation along with nurse in charge Re. Patient is found walking in the [place]cl[place], she is irritable, but cooperative. The patient reports that the reason she is here is because her mother does not want her more in the house. She reports that she is now planning to take medications anymore and her plan is to leave this place without no drugs. She says that the lithium is giving her back pain and is damaging her back ligaments and is also making her "fat". She also reports that medication for pain cause her more pain as well. As per nursing report the patient has being internally preoccupied, talking to herself in the unit, periodically agitated. She has been consistently refusing to take her lithium. Review of Systems Psychiatric: COMPLAINS OF: Mood changes, Agitation, DENIES: Anxiety, Confusion , Depression, Hallucinations, Suicidal Ideation, Homicidal Ideation, Delusions Except as stated in HPI: all other systems reviewed are Neg Mental Status Examination Appearance: Other (Fair hygiene and grooming) Consciousness: Alert Orientation: x4 Motor Activity: Normal gait, Other (No motor abnormalities noted) Speech: Unremarkable Language: Other (Limited sample today) Fund of Knowledge: Adequate Attention and Concentration: Easily Distracted Mood: Other (Dysphoric) Affect: Other (Restricted) Thought Process & Associations: Circumstantial Thought Content: Hallucinations, Delusional Hallucination Type: Other (Internally preoccupied) Delusion Type: Bizarre, Paranoid, Other (Guarded, suspect ongoing paranoia) Suicidal Ideation: No (No SI voiced) Suicidal Plan: No Suicidal Intention: No Homicidal Ideation: No (No HI voiced) Insight: Poor Judgment: Poor Results Vitals/IOs Vital Signs Date Time Temp Pulse Resp B/P (MAP) Pulse Ox O2 Delivery O2 Flow Rate FiO2 01/16/18 06:31 98.0 91 15 123/58 (79) 97 Assessment & Plan Problem List: (1) Schizoaffective disorder ICD Codes: F25.9 - Schizoaffective disorder, unspecified Status: Acute Assessment & Plan: Patient continues to be delusional, periodically agitated, disorganized. Patient has been refusing to take lithium. I will try to convince the patient to take Abilify. Assessment & Plan Estimated LOS: days Justification for Cont. Inpt. Patient is acutely delusional and psychotic, needs to continue psychiatric hospitalization for stabilization. Request HC Surrog/Guard Advoc?: Yes Problem Qualifiers (1) Schizoaffective disorder: Qualified Codes: F25.0 - Schizoaffective disorder, bipolar type Bassam Engle MD Jan 16, 2018 12:06
[2018-01-17] MEDS: ACETAMINOPHEN 325 MG TAB PO PRN (02:57)
[2018-01-17] MEDS: INSULIN ASPART SUPPLEMENTAL SCALE SQ SCH ×4 (07:40→21:00)
--- NOTE | 2018-01-17 11:31 | HHI.PYPN ---
Subjective Chief Complaint: Exacerbation of SAD Remarks The patient was seen today for psychiatric reevaluation, the patient is poorly cooperative, oppositional, irritable, stating that she does not want to speak with psychiatrist anymore. Patient states "he had been lying to me, you are not maybe take medications that are going to damage my muscle make me fat", once I tried to redirect her and establish a conversation regarding risk and benefit of medications and potential alternative, the patient start talking to herself, becomes disorganized and leave the room. As per nurse, the patient has being intrusive, walking back and forth in the unit, internally preoccupied , talking to herself, make paranoid accusations. She is noncompliant with medications, has refused consistently her psychotropics. Review of Systems Except as stated in HPI: all other systems reviewed are Neg Mental Status Examination Appearance: Other (Fair hygiene and grooming) Consciousness: Alert Orientation: x4 Motor Activity: Normal gait, Other (No motor abnormalities noted) Speech: Unremarkable Language: Other (Limited sample today) Fund of Knowledge: Adequate Attention and Concentration: Easily Distracted Mood: Other (Dysphoric) Affect: Other (Restricted) Thought Process & Associations: Circumstantial Thought Content: Hallucinations, Delusional Hallucination Type: Other (Internally preoccupied) Delusion Type: Bizarre, Paranoid, Other (Guarded, suspect ongoing paranoia) Suicidal Ideation: No (No SI voiced) Suicidal Plan: No Suicidal Intention: No Homicidal Ideation: No (No HI voiced) Insight: Poor Judgment: Poor Results Vitals/IOs Vital Signs Date Time Temp Pulse Resp B/P (MAP) Pulse Ox O2 Delivery O2 Flow Rate FiO2 01/17/18 05:38 20 01/16/18 06:31 98.0 91 123/58 (79) 97 Assessment & Plan Problem List: (1) Schizoaffective disorder ICD Codes: F25.9 - Schizoaffective disorder, unspecified Status: Acute Assessment & Plan: Continue to encourage psychotropics, I will start Abilify 5 mg for psychosis,. Encourage patient to take her medications Assessment & Plan Estimated LOS: days Justification for Cont. Inpt. Patient is acutely psychotic, she needs to continue psychotic hospitalization for stabilization Request HC Surrog/Guard Advoc?: Yes Problem Qualifiers (1) Schizoaffective disorder: Qualified Codes: F25.0 - Schizoaffective disorder, bipolar type Bassam Engle MD Jan 17, 2018 11:31
[2018-01-18] MEDS: INSULIN ASPART SUPPLEMENTAL SCALE SQ SCH ×4 (08:00→21:00)
[2018-01-18] MEDS ORDERED: ARIPiprazole 5 MG TAB PO SCH (09:00)
--- NOTE | 2018-01-18 11:25 | HHI.PYPN ---
Subjective Chief Complaint: Exacerbation of SAD Remarks The patient was seen today for psychiatric reevaluation. Patient is oppositional, irritable, very internally preoccupied and paranoid. She refuses to speak with me, becoming very verbally hostile during the interview. As per nurse in charge the patient has been intrusive, walking back and forward in the unit, talking to herself, disorganized, refusing medications. I have contacted her [employer] representer, Miss Oliveira, and I have requested to medicate the patient with IM medication if the patient continues to refuse p.o. And she agreed with the plan. Mental Status Examination Appearance: Other (Fair hygiene and grooming) Consciousness: Alert Orientation: x4 Motor Activity: Normal gait, Other (No motor abnormalities noted) Speech: Unremarkable Language: Other (Limited sample today) Fund of Knowledge: Adequate Attention and Concentration: Easily Distracted Mood: Other (Dysphoric) Affect: Other (Restricted) Thought Process & Associations: Circumstantial Thought Content: Hallucinations, Delusional Hallucination Type: Other (Internally preoccupied) Delusion Type: Bizarre, Paranoid, Other (Guarded, suspect ongoing paranoia) Suicidal Ideation: No (No SI voiced) Suicidal Plan: No Suicidal Intention: No Homicidal Ideation: No (No HI voiced) Insight: Poor Judgment: Poor Results Vitals/IOs Vital Signs Date Time Temp Pulse Resp B/P (MAP) Pulse Ox O2 Delivery O2 Flow Rate FiO2 01/17/18 05:38 20 01/16/18 06:31 98.0 91 123/58 (79) 97 Assessment & Plan Problem List: (1) Schizoaffective disorder ICD Codes: F25.9 - Schizoaffective disorder, unspecified Status: Acute Assessment & Plan: Patient continues to be acutely psychotic, disorganized, paranoid, irritable, agitated in the unit. We will discontinue Abilify. Start Geodon 10 mg twice daily, if patient refuses will order Geodon 5 mg IM. Assessment & Plan Estimated LOS: days Justification for Cont. Inpt. Patient continues to be acutely psychotic, disorganized, paranoid, irritable, agitated in the unit. She needs to continue psychiatric hospitalization for stabilization per Request HC Surrog/Guard Advoc?: Yes Problem Qualifiers (1) Schizoaffective disorder: Qualified Codes: F25.0 - Schizoaffective disorder, bipolar type Bassam Engle MD Jan 18, 2018 11:25
[2018-01-18] MEDS ORDERED: ZIPRASIDONE HCL 20 MG CAP PO SCH (11:30)
[2018-01-18] MEDS ORDERED: ZIPRASIDONE MESYLATE 20 MG VIAL IM PRN (11:30)
[2018-01-18] MEDS: OLANZapine 2.5 MG TAB PO SCH ×2 (14:00→21:00)
[2018-01-19] MEDS: INSULIN ASPART SUPPLEMENTAL SCALE SQ SCH ×4 (08:00→20:50)
[2018-01-19] MEDS: OLANZapine 2.5 MG TAB PO SCH ×2 (08:46→21:00)
[2018-01-19] MEDS: OLANZapine IM 10 MG VIAL IM PRN ×2 (08:50→21:55)
[2018-01-20] MEDS: INSULIN ASPART SUPPLEMENTAL SCALE SQ SCH ×5 (08:00→21:46)
[2018-01-20] MEDS: OLANZapine 2.5 MG TAB PO SCH ×2 (09:07→21:41)
--- NOTE | 2018-01-20 11:19 | HHI.PYPN ---
Subjective Chief Complaint: Exacerbation of SAD Remarks The patient was seen today for psychiatric reevaluation. The case was widely discussed in the morning reports with nurse in charge. The patient was found sleeping, but easily arousable. She reported that she feels much better today. She feels rested and hungry. The patient reports good mood, she says that she has been very happy in the last 2 weeks. She does report somatic delusions , stating that her ligaments are getting "stiff due to the Tylenol". as per report, the patient has been disorganized, disruptive in the unit, needed multiple redirections and at times even verbally hostile. Yesterday she refused p.o. medication, but I am medication was provided, at the beginning was oppositional, but then accept the medication. No side effects has been reported or observed. Review of Systems Constitutional: DENIES: Diaphoretic episodes, Fatigue, Fever, Weight gain, Weight loss, Chills, Dizziness, Change in appetite, Night Sweats Endocrine: DENIES: Abnorml menstrual pattern, Heat/cold intolerance, Polydipsia , Polyuria, Polyphagia Ears, nose, mouth, throat: DENIES: Tinnitus, Hearing loss, Vertigo, Nasal discharge, Oral lesions, Throat pain, Hoarseness, Ear Pain, Running Nose, Epistaxis, Sinus Pain, Toothache, Odynophagia Respiratory: DENIES: Apneas, Cough, Snoring, Wheezing, Hemoptysis, Sputum production, Shortness of breath Cardiovascular: DENIES: Chest pain, Palpitations, Syncope, Dyspnea on Exertion , PND, Lower Extremity Edema, Orthopnea, Claudication Gastrointestinal: DENIES: Abdominal pain, Black stools, Bloody stools, Constipation, Diarrhea, Nausea, Vomiting, Difficulty Swallowing, Anorexia Genitourinary: DENIES: Abnormal vaginal bleeding, Dysmenorrhea, Dyspareunia, Sexual dysfunction, Urinary frequency, Urinary incontinence, Urgency, Hematuria , Dysuria, Nocturia, Vaginal discharge Musculoskeletal: DENIES: Joint pain, Muscle aches, Stiffness, Joint Swelling, Back pain, Neck pain Integumentary: DENIES: Abnormal pigmentation, Pruritus, Rash, Nail changes, Breast masses, Breast skin changes, Nipple discharge Hematologic/lymphatic: DENIES: Bruising, Lymphadenopathy Immunologic/allergic: DENIES: Eczema, Urticaria Neurologic: DENIES: Abnormal gait, Headache, Localized weakness, Paresthesias, Seizures, Speech Problems, Tremor, Poor Balance Psychiatric: COMPLAINS OF: Agitation, Delusions, DENIES: Anxiety, Confusion, Mood changes, Depression, Hallucinations, Suicidal Ideation, Homicidal Ideation Mental Status Examination Appearance: Other (Fair hygiene and grooming) Consciousness: Alert Orientation: x4 Motor Activity: Normal gait, Other (No motor abnormalities noted) Speech: Unremarkable Language: Other (Limited sample today) Fund of Knowledge: Adequate Attention and Concentration: Easily Distracted Mood: Other (Dysphoric) Affect: Other (Restricted) Thought Process & Associations: Circumstantial Thought Content: Hallucinations, Delusional Hallucination Type: Other (Internally preoccupied) Delusion Type: Bizarre, Paranoid, Other (Guarded, suspect ongoing paranoia) Suicidal Ideation: No (No SI voiced) Suicidal Plan: No Suicidal Intention: No Homicidal Ideation: No (No HI voiced) Insight: Poor Judgment: Poor Results Vitals/IOs Vital Signs Date Time Temp Pulse Resp B/P (MAP) Pulse Ox O2 Delivery O2 Flow Rate FiO2 01/19/18 18:43 01/17/18 05:38 20 Assessment & Plan Problem List: (1) Schizoaffective disorder ICD Codes: F25.9 - Schizoaffective disorder, unspecified Status: Acute Assessment & Plan: Patient continues to be acutely delusional, paranoia and disorganized. Since the patient has is demonstrated will report any allergies or side effects of olanzapine, will decrease olanzapine to 5 mg p.o./IM if patient refuses Assessment & Plan Estimated LOS: days Justification for Cont. Inpt. Patient is acutely psychotic, she we will continue psychiatric hospitalization for stabilization Request HC Surrog/Guard Advoc?: Yes Problem Qualifiers (1) Schizoaffective disorder: Qualified Codes: F25.0 - Schizoaffective disorder, bipolar type Bassam Engle MD Jan 20, 2018 11:19
[2018-01-20 18:37] VITALS: PULSE 114; RESP 16; TEMP 99; O2SAT 98
[2018-01-20] MEDS: diphenhydrAMINE HCL 50 MG CAP PO PRN (21:41)
[2018-01-21 05:54] VITALS: BP 119/59; PULSE 93; RESP 17; TEMP 98.3; O2SAT 97
[2018-01-21] MEDS: OLANZapine 2.5 MG TAB PO SCH ×2 (09:25→20:52)
--- NOTE | 2018-01-21 10:59 | HHI.PYPN ---
Subjective Chief Complaint: Exacerbation of SAD Remarks Chart reviewed. Discussed patient with nursing staff. Patient was in her room. Calm and cooperative. Delusional and paranoid. Changing topics throughout the conversation. 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 Patient appears internally stimulated. Patient denies AVH. Mental Status Examination Appearance: Other (Fair hygiene and grooming) Consciousness: Alert Orientation: x4 Motor Activity: Normal gait, Other (No motor abnormalities noted) Speech: Unremarkable Language: Other (Limited sample today) Fund of Knowledge: Adequate Attention and Concentration: Easily Distracted Mood: Other (Dysphoric) Affect: Other (Restricted) Thought Process & Associations: Circumstantial Thought Content: Hallucinations, Delusional Hallucination Type: Other (Internally preoccupied) Delusion Type: Bizarre, Paranoid, Other (Guarded, suspect ongoing paranoia) Suicidal Ideation: No (No SI voiced) Suicidal Plan: No Suicidal Intention: No Homicidal Ideation: No (No HI voiced) Insight: Poor Judgment: Poor Results Vitals/IOs Vital Signs Date Time Temp Pulse Resp B/P (MAP) Pulse Ox O2 Delivery O2 Flow Rate FiO2 01/21/18 05:54 98.3 93 17 119/59 (79) 97 Intake and Output 01/21/18 01/21/18 01/22/18 08:00 16:00 00:00 Intake Total 360 ml Balance 360 ml Assessment & Plan Problem List: (1) Schizoaffective disorder ICD Codes: F25.9 - Schizoaffective disorder, unspecified Status: Acute Assessment & Plan: Will continue current treatment plan. Discharge planning in progress. Assessment & Plan Estimated LOS: days Justification for Cont. Inpt. Moving patient to a lower level of care may result in decompensation. Request HC Surrog/Guard Advoc?: Yes Problem Qualifiers (1) Schizoaffective disorder: Qualified Codes: F25.0 - Schizoaffective disorder, bipolar type Merced Renteria Jan 21, 2018 10:59
[2018-01-21] MEDS: INSULIN ASPART SUPPLEMENTAL SCALE SQ SCH ×3 (12:00→20:52)
[2018-01-21 18:19] VITALS: BP 115/71; PULSE 102; RESP 16; TEMP 98.3; O2SAT 99
[2018-01-21] MEDS: OLANZapine IM 10 MG VIAL IM PRN (21:01)
[2018-01-22 05:20] VITALS: BP 123/65; PULSE 91; RESP 16; TEMP 98.2; O2SAT 98
[2018-01-22] MEDS: INSULIN ASPART SUPPLEMENTAL SCALE SQ SCH ×4 (08:00→21:00)
[2018-01-22] MEDS: OLANZapine 2.5 MG TAB PO SCH ×2 (09:55→21:00)
--- NOTE | 2018-01-22 11:54 | HHI.PYPN ---
Subjective Chief Complaint: Exacerbation of SAD Remarks Reviewed electronic medical record discussed case with staff. Follow-up was conducted in patient's room. Patient was found sleeping she awoke after several verbal prompts. She reports that she has been sleeping well her appetite is been good. She states that she has been participating in activities and fresh air. She does say that she is tired from her medications and that she cannot read which she attributes to the medication. She denies suicidal or homicidal ideation as well as auditory or visual hallucinations. Her mood is irritable and her affect reflects that. Mental Status Examination Appearance: Other (Fair hygiene and grooming) Consciousness: Alert Orientation: x4 Motor Activity: Normal gait, Other (No motor abnormalities noted) Speech: Unremarkable Language: Other (Limited sample today) Fund of Knowledge: Adequate Attention and Concentration: Easily Distracted Mood: Other (Dysphoric) Affect: Other (Restricted) Thought Process & Associations: Circumstantial Thought Content: Hallucinations, Delusional Hallucination Type: Other (Internally preoccupied) Delusion Type: Bizarre, Paranoid, Other (Guarded, suspect ongoing paranoia) Suicidal Ideation: No (No SI voiced) Suicidal Plan: No Suicidal Intention: No Homicidal Ideation: No (No HI voiced) Insight: Poor Judgment: Poor Results Vitals/IOs Vital Signs Date Time Temp Pulse Resp B/P (MAP) Pulse Ox O2 Delivery O2 Flow Rate FiO2 01/22/18 05:20 98.2 91 16 123/65 (84) 98 Intake and Output 01/22/18 01/22/18 01/23/18 08:00 16:00 00:00 Intake Total 360 ml Balance 360 ml Assessment & Plan Problem List: (1) Schizoaffective disorder ICD Codes: F25.9 - Schizoaffective disorder, unspecified Status: Acute Assessment & Plan Estimated LOS: Continue with treatment plan as ordered. Attending psychiatrist will be and to reevaluate patient tomorrow. Days Justification for Cont. Inpt. Moving this patient to a lower level of care would likely result in decompensation. Request HC Surrog/Guard Advoc?: Yes Problem Qualifiers (1) Schizoaffective disorder: Qualified Codes: F25.0 - Schizoaffective disorder, bipolar type Alexsandra Vasques Jan 22, 2018 11:54
[2018-01-22] MEDS: OLANZapine IM 10 MG VIAL IM PRN (21:11)
[2018-01-23] MEDS: INSULIN ASPART SUPPLEMENTAL SCALE SQ SCH ×4 (07:35→21:00)
[2018-01-23] MEDS: OLANZapine 2.5 MG TAB PO SCH ×2 (08:40→22:01)
--- NOTE | 2018-01-23 12:02 | HHI.PYPN ---
Subjective Chief Complaint: Exacerbation of SAD Remarks The patient was seen today for psychiatric reevaluation. Patient was found sleeping, but easily arousable. Documentation from weekends follow-ups reviewed. The patient was calm, cooperative, disorganized at times. Patient reports that she has been doing okay, she says that she had a good weekend. She reports that she has happy mood, she is just concerned "about the medication getting into my ligaments in the back and breaking my column". She reports to be compliant medications, no significant side effects. As per nurse in charge, the patient did a little bit better during the weekend, but still quite disorganized, intrusive in the unit, talking with herself, paranoid at times, has to be redirected multiple times in a day. The patient has been compliant with p.o. medications on and off. Review of Systems Psychiatric: COMPLAINS OF: Agitation, Delusions Mental Status Examination Appearance: Other (Fair hygiene and grooming) Consciousness: Alert Orientation: x4 Motor Activity: Normal gait, Other (No motor abnormalities noted) Speech: Unremarkable Language: Other (Limited sample today) Fund of Knowledge: Adequate Attention and Concentration: Easily Distracted Mood: Other (Dysphoric) Affect: Other (Restricted) Thought Process & Associations: Circumstantial Thought Content: Hallucinations, Delusional Hallucination Type: Other (Internally preoccupied) Delusion Type: Bizarre, Paranoid, Other (Guarded, suspect ongoing paranoia) Suicidal Ideation: No (No SI voiced) Suicidal Plan: No Suicidal Intention: No Homicidal Ideation: No (No HI voiced) Insight: Poor Judgment: Poor Results Vitals/IOs Vital Signs Date Time Temp Pulse Resp B/P (MAP) Pulse Ox O2 Delivery O2 Flow Rate FiO2 01/22/18 05:20 98.2 91 16 123/65 (84) 98 Assessment & Plan Problem List: (1) Schizoaffective disorder ICD Codes: F25.9 - Schizoaffective disorder, unspecified Status: Acute Assessment & Plan: Patient has showed a very modest improvement of her psychosis. Continues to be delusional, paranoid, disorganized. I will increase the olanzapine to 7.5 twice daily. Will order EKG for QTC baseline. Also will order routine CMP and CBC. Assessment & Plan Estimated LOS: days Justification for Cont. Inpt. Patient continues to be acutely psychotic. Request HC Surrog/Guard Advoc?: Yes Problem Qualifiers (1) Schizoaffective disorder: Qualified Codes: F25.0 - Schizoaffective disorder, bipolar type Bassam Engle MD Jan 23, 2018 12:02
--- NOTE | 2018-01-23 20:20 | EKG ---
Date Performed: 01/23/2018 Time Performed: 12:47:30 PTAGE: 52 years EKG: Sinus rhythm WITH FIRST DEGREE AV BLOCK POSSIBLE LEFT ATRIAL ENLARGEMENT ABNORMAL ECG PREVIOUS TRACING : 07/09/2017 09.21 Since the previous tracing, no significant change noted DOCTOR: Donny Tam Interpretating Date/Time 01/23/2018 20:18:01
[2018-01-23] MEDS ORDERED: OLANZapine IM 10 MG VIAL IM PRN (21:00)
[2018-01-23] MEDS: ACETAMINOPHEN 325 MG TAB PO PRN (23:13)
[2018-01-24] MEDS: INSULIN ASPART SUPPLEMENTAL SCALE SQ SCH ×4 (07:31→21:00)
[2018-01-24] MEDS: ACETAMINOPHEN 325 MG TAB PO PRN ×3 (07:55→23:02)
[2018-01-24] MEDS: OLANZapine 2.5 MG TAB PO SCH ×2 (09:30→21:00)
--- NOTE | 2018-01-24 13:16 | HHI.PYPN ---
Subjective Chief Complaint: Exacerbation of SAD Remarks Patient was seen today for psychiatric reevaluation. Case was widely discussed with nurse in charge. The patient was seen in the recreational area of the unit , she was eating her breakfast. The patient was calm, cooperative, she was able to establish a conversation with me. She reports that she is feeling much better and she is looking forward for discharge. Patient reports that she has been participating in activities in the unit, reading and taking her medications. I discussed with the convenience of the accepting labs and also her lithium, and the patient states that she would try the lithium again "but a low dose". The patient seems to be more organized, less agitated and anxious, more able to tolerate a conversation. Nurse in charge report that the patient is usually calm her in the morning, but in the after she becomes verbally hostile, disorganized and paranoid. She has been refusing her labs and her medications on and off. Review of Systems Psychiatric: COMPLAINS OF: Delusions Mental Status Examination Appearance: Other (Fair hygiene and grooming) Consciousness: Alert Orientation: x4 Motor Activity: Normal gait, Other (No motor abnormalities noted) Speech: Unremarkable Language: Other (Limited sample today) Fund of Knowledge: Adequate Attention and Concentration: Easily Distracted Mood: Other (Dysphoric) Affect: Other (Restricted) Thought Process & Associations: Circumstantial Thought Content: Hallucinations, Delusional Hallucination Type: Other (Internally preoccupied) Delusion Type: Bizarre, Paranoid, Other (Guarded, suspect ongoing paranoia) Suicidal Ideation: No (No SI voiced) Suicidal Plan: No Suicidal Intention: No Homicidal Ideation: No (No HI voiced) Insight: Poor Judgment: Poor Results Vitals/IOs Vital Signs Date Time Temp Pulse Resp B/P (MAP) Pulse Ox O2 Delivery O2 Flow Rate FiO2 01/22/18 05:20 98.2 91 16 123/65 (84) 98 Intake and Output 01/24/18 01/24/18 01/25/18 08:00 16:00 00:00 Intake Total 600 ml Balance 600 ml Assessment & Plan Problem List: (1) Schizoaffective disorder ICD Codes: F25.9 - Schizoaffective disorder, unspecified Status: Acute Assessment & Plan: We will increase Zyprexa to 10 mg twice daily. Restart lithium 300 mg twice daily. Assessment & Plan Estimated LOS: days Justification for Cont. Inpt. Patient continues to be acutely psychotic. Request HC Surrog/Guard Advoc?: Yes Problem Qualifiers (1) Schizoaffective disorder: Qualified Codes: F25.0 - Schizoaffective disorder, bipolar type Bassam Engle MD January 24, 2018 13:16
[2018-01-24] MEDS: LITHIUM CARBONATE 300 MG CAP PO SCH ×2 (15:00→21:32)
[2018-01-24 18:34] VITALS: BP 131/66; PULSE 75; RESP 18; TEMP 98.2; O2SAT 96
[2018-01-24] MEDS ORDERED: OLANZapine IM 10 MG VIAL IM PRN (21:00)
[2018-01-25 06:24] VITALS: BP 122/57; PULSE 85; RESP 17; TEMP 98; O2SAT 98
[2018-01-25] MEDS: INSULIN ASPART SUPPLEMENTAL SCALE SQ SCH ×4 (07:37→21:00)
[2018-01-25] MEDS: LITHIUM CARBONATE 300 MG CAP PO SCH ×2 (08:26→21:10)
[2018-01-25] MEDS: OLANZapine 2.5 MG TAB PO SCH ×3 (08:28→21:58)
--- NOTE | 2018-01-25 11:35 | HHI.PYPN ---
Subjective Chief Complaint: Exacerbation of SAD Remarks Patient was seen today for psychiatric reevaluation. Patient was irritable, but cooperative and redirectable. The patient reports that she has been taking her medications, she says that she wants to take the lithium and Cymbalta, but she does not need to take olanzapine. I explained her that olanzapine, as well as lithium, are important in her psychotropic regimen for her to get better and be discharged. She was receptive to psychoeducation. She reports good sleep, good appetite, okay mood, she denies depression, denies suicidal and was ideation, she denies visual and auditory hallucinations. Patient seems to be less disorganized, but perseverates in somatic delusions. Patient is described by staff like unpredictable, at times quite disorganized, could be verbally hostile. Review of Systems Psychiatric: COMPLAINS OF: Delusions Except as stated in HPI: all other systems reviewed are Neg Mental Status Examination Appearance: Other (Fair hygiene and grooming) Consciousness: Alert Orientation: x4 Motor Activity: Normal gait, Other (No motor abnormalities noted) Speech: Unremarkable Language: Other (Limited sample today) Fund of Knowledge: Adequate Attention and Concentration: Easily Distracted Mood: Other (Dysphoric) Affect: Other (Restricted) Thought Process & Associations: Circumstantial Thought Content: Hallucinations, Delusional Hallucination Type: Other (Internally preoccupied) Delusion Type: Bizarre, Paranoid, Other (Guarded, suspect ongoing paranoia) Suicidal Ideation: No (No SI voiced) Suicidal Plan: No Suicidal Intention: No Homicidal Ideation: No (No HI voiced) Insight: Poor Judgment: Poor Results Vitals/IOs Vital Signs Date Time Temp Pulse Resp B/P (MAP) Pulse Ox O2 Delivery O2 Flow Rate FiO2 01/25/18 06:24 98.0 85 17 122/57 (78) 98 Assessment & Plan Problem List: (1) Schizoaffective disorder ICD Codes: F25.9 - Schizoaffective disorder, unspecified Status: Acute Assessment & Plan: Today we will continue current psychotropic regimen. Brief supportive psychotherapy, psychoeducation provided. Encouraged the patient to participate in activities and compliant with psychotropics Assessment & Plan Estimated LOS: days Justification for Cont. Inpt. Patient continues to be psychotic Request HC Surrog/Guard Advoc?: Yes Problem Qualifiers (1) Schizoaffective disorder: Qualified Codes: F25.0 - Schizoaffective disorder, bipolar type Bassam Engle MD January 25, 2018 11:35
[2018-01-25 17:52] VITALS: BP 121/61; PULSE 88; RESP 18; TEMP 98.1; O2SAT 98
[2018-01-26 07:14] LABS: AUTOMATED NEUTROPHIL # 6.4 TH/MM3 (1.8-7.7); BASOPHIL # 0.1 TH/MM3 (0-0.2); BASOPHIL % 0.8 % (0.0-2.0); EOSINOPHIL % 8.3 % (0.0-4.0); HEMATOCRIT 39.2 % (35.0-46.0); HEMOGLOBIN 13.3 GM/DL (11.6-15.3); LYMPH % 28.5 % (9.0-44.0); LYMPHOCYTE # 3.3 TH/MM3 (1.0-4.8); MEAN CELL VOLUME 91.8 FL (80.0-100.0); MEAN CORPUSCULAR HEMOGLOBIN 31.3 PG (27.0-34.0); MEAN PLATELET VOLUME 8.2 FL (7.0-11.0); MONO % 7.4 % (0.0-8.0); MONOCYTE # 0.9 TH/MM3 (0-0.9); PLATELET COUNT 280 TH/MM3 (150-450); RED BLOOD COUNT 4.27 MIL/MM3 (4.00-5.30); RED CELL DISTRIBUTION WIDTH 13.5 % (11.6-17.2); WHITE BLOOD COUNT 11.7 TH/MM3 (4.0-11.0)
[2018-01-26 07:37] LABS: ALT (GPT) 31 U/L (10-53); AST (GOT) 18 U/L (15-37); BICARBONATE 25.4 MEQ/L (21.0-32.0); BLOOD UREA NITROGEN 20 MG/DL (7-18); CALCIUM 8.6 MG/DL (8.5-10.1); CHLORIDE 110 MEQ/L (98-107); CREATININE 1.02 MG/DL (0.50-1.00); GLOMERULAR FILTRATION RATE 57 ML/MIN (>89); GLUCOSE,RANDOM 137 MG/DL (74-106); SODIUM (NA) 142 MEQ/L (136-145)
[2018-01-26 07:40] LABS: ALKALINE PHOSPHATASE 93 U/L (45-117); TOTAL BILIRUBIN ADULT 0.2 MG/DL (0.2-1.0); TOTAL PROTEIN 7.3 GM/DL (6.4-8.2)
[2018-01-26] MEDS: INSULIN ASPART SUPPLEMENTAL SCALE SQ SCH ×4 (08:00→21:00)
[2018-01-26] MEDS: LITHIUM CARBONATE 300 MG CAP PO SCH ×2 (08:34→21:28)
--- NOTE | 2018-01-26 10:59 | HHI.PYPN ---
Subjective Chief Complaint: Exacerbation of SAD Remarks The patient was seen today for psychiatric reevaluation, patient is found in her room, today she is irritable, oppositional, is stating that she is want to continue taking any medication, she does not need medications, "I just need medication for my ligaments pain from my back pain". Patient has rapid speech, is verbally hostile, but able to be de-escalated. She has been compliant, but she needs extra redirection to take her medications. In the unit she continues to be disorganized, at times disruptive. She is oriented 3, no side effects of medication observed Mental Status Examination Appearance: Other (Fair hygiene and grooming) Consciousness: Alert Orientation: x4 Motor Activity: Normal gait, Other (No motor abnormalities noted) Speech: Unremarkable Language: Other (Limited sample today) Fund of Knowledge: Adequate Attention and Concentration: Easily Distracted Mood: Other (Dysphoric) Affect: Other (Restricted) Thought Process & Associations: Circumstantial Thought Content: Hallucinations, Delusional Hallucination Type: Other (Internally preoccupied) Delusion Type: Bizarre, Paranoid, Other (Guarded, suspect ongoing paranoia) Suicidal Ideation: No (No SI voiced) Suicidal Plan: No Suicidal Intention: No Homicidal Ideation: No (No HI voiced) Insight: Poor Judgment: Poor Results Labs Test 01/26/18 06:46 White Blood Count 11.7 TH/MM3 Red Blood Count 4.27 MIL/MM3 Hemoglobin 13.3 GM/DL Hematocrit 39.2 % Mean Corpuscular Volume 91.8 FL Mean Corpuscular Hemoglobin 31.3 PG Mean Corpuscular Hemoglobin Concent 34.0 % Red Cell Distribution Width 13.5 % Platelet Count 280 TH/MM3 Mean Platelet Volume 8.2 FL Neutrophils (%) (Auto) 55.0 % Lymphocytes (%) (Auto) 28.5 % Monocytes (%) (Auto) 7.4 % Eosinophils (%) (Auto) 8.3 % Basophils (%) (Auto) 0.8 % Neutrophils # (Auto) 6.4 TH/MM3 Lymphocytes # (Auto) 3.3 TH/MM3 Monocytes # (Auto) 0.9 TH/MM3 Eosinophils # (Auto) 1.0 TH/MM3 Basophils # (Auto) 0.1 TH/MM3 CBC Comment DIFF FINAL Differential Comment Blood Urea Nitrogen 20 MG/DL Creatinine 1.02 MG/DL Random Glucose 137 MG/DL Total Protein 7.3 GM/DL Albumin 3.0 GM/DL Calcium Level 8.6 MG/DL Alkaline Phosphatase 93 U/L Aspartate Amino Transf (AST/SGOT) 18 U/L Alanine Aminotransferase (ALT/SGPT) 31 U/L Total Bilirubin 0.2 MG/DL Sodium Level 142 MEQ/L Potassium Level 3.9 MEQ/L Chloride Level 110 MEQ/L Carbon Dioxide Level 25.4 MEQ/L Anion Gap 7 MEQ/L Estimat Glomerular Filtration Rate 57 ML/MIN Total Creatine Kinase 55 U/L Vitals/IOs Vital Signs Date Time Temp Pulse Resp B/P (MAP) Pulse Ox O2 Delivery O2 Flow Rate FiO2 01/25/18 17:52 98.1 88 18 121/61 (81) 98 Assessment & Plan Problem List: (1) Schizoaffective disorder ICD Codes: F25.9 - Schizoaffective disorder, unspecified Status: Acute Assessment & Plan: Will increase lithium to 600 mg twice daily to help with mood stabilization. Will order lithium level. Assessment & Plan Estimated LOS: days Justification for Cont. Inpt. Patient continues to be psychotic, irritable, manic-like Request HC Surrog/Guard Advoc?: Yes Problem Qualifiers (1) Schizoaffective disorder: Qualified Codes: F25.0 - Schizoaffective disorder, bipolar type Bassam Engle MD January 26, 2018 10:59
[2018-01-26] MEDS: OLANZapine 2.5 MG TAB PO SCH ×3 (15:00→21:27)
[2018-01-27 00:18] VITALS: BP 114/73; PULSE 69
[2018-01-27 05:28] VITALS: BP 127/62; PULSE 93; RESP 16; TEMP 98; O2SAT 99
[2018-01-27] MEDS: INSULIN ASPART SUPPLEMENTAL SCALE SQ SCH ×4 (07:24→21:00)
[2018-01-27] MEDS: LITHIUM CARBONATE 300 MG CAP PO SCH ×2 (08:28→20:25)
[2018-01-27] MEDS: OLANZapine 2.5 MG TAB PO SCH ×2 (08:29→20:25)
--- NOTE | 2018-01-27 11:38 | HHI.PYPN ---
Subjective Chief Complaint: Exacerbation of SAD Remarks Patient is seen in her room with nurse Sabrina, chart reviewed, patient selectively compliant with medications, patient resting quietly in bed continues to refuse her diabetic medications though she is taking her lithium and Zyprexa. She states she lives with her mother who she calls bipolar, and another young woman. While she acknowledges 20-30+ psychiatric hospitalizations throughout her life she places the responsibility for these hospitalizations on her mother's issues. With me she denies voices or visions. Denies suicidality or homicidality. There is a marked paranoia noted primarily focused on her mother but also related to other extended family members. We will check labs tomorrow morning with a lithium level, CMP, and hemoglobin A1c. Patient shows some supple denial of mental illness and also of her diabetes. Patient stated that she wants to leave her mother's house and go to [facility] in some type of her snf and then contact [facility] to get her certificate. In any event patient is already been taken through [place] has been retained and she does have iman as her guardian advocate. For now continue medications no change until we get the lab results Review of Systems ROS Limitations: Uncooperative, Psychotic, Poor Historian Constitutional: DENIES: Diaphoretic episodes, Fatigue, Fever, Weight gain, Weight loss, Chills, Dizziness, Change in appetite, Night Sweats Endocrine: DENIES: Abnorml menstrual pattern, Heat/cold intolerance, Polydipsia , Polyuria, Polyphagia Eyes: DENIES: Blurred vision, Diplopia, Eye inflammation, Eye pain, Vision loss , Photosensitivity, Double Vision Ears, nose, mouth, throat: DENIES: Tinnitus, Hearing loss, Vertigo, Nasal discharge, Oral lesions, Throat pain, Hoarseness, Ear Pain, Running Nose, Epistaxis, Sinus Pain, Toothache, Odynophagia Respiratory: DENIES: Apneas, Cough, Snoring, Wheezing, Hemoptysis, Sputum production, Shortness of breath Cardiovascular: DENIES: Chest pain, Palpitations, Syncope, Dyspnea on Exertion , PND, Lower Extremity Edema, Orthopnea, Claudication Gastrointestinal: DENIES: Abdominal pain, Black stools, Bloody stools, Constipation, Diarrhea, Nausea, Vomiting, Difficulty Swallowing, Anorexia Genitourinary: DENIES: Abnormal vaginal bleeding, Dysmenorrhea, Dyspareunia, Sexual dysfunction, Urinary frequency, Urinary incontinence, Urgency, Hematuria , Dysuria, Nocturia, Vaginal discharge Musculoskeletal: COMPLAINS OF: Muscle aches, Stiffness, Back pain Integumentary: DENIES: Abnormal pigmentation, Pruritus, Rash, Nail changes, Breast masses, Breast skin changes, Nipple discharge Hematologic/lymphatic: DENIES: Bruising, Lymphadenopathy Immunologic/allergic: DENIES: Eczema, Urticaria Neurologic: DENIES: Abnormal gait, Headache, Localized weakness, Paresthesias, Seizures, Speech Problems, Tremor, Poor Balance Psychiatric: COMPLAINS OF: Agitation (Mildly at times), Delusions Mental Status Examination Appearance: Other (Fair hygiene and grooming) Consciousness: Alert Orientation: x4 Motor Activity: Normal gait, Other (No motor abnormalities noted) Speech: Unremarkable Language: Other (Limited sample today) Fund of Knowledge: Adequate Attention and Concentration: Easily Distracted Mood: Other (Dysphoric) Affect: Other (Restricted) Thought Process & Associations: Circumstantial Thought Content: Hallucinations, Delusional Hallucination Type: Other (Internally preoccupied) Delusion Type: Bizarre, Paranoid, Other (Guarded, suspect ongoing paranoia) Suicidal Ideation: No (No SI voiced) Suicidal Plan: No Suicidal Intention: No Homicidal Ideation: No (No HI voiced) Insight: Poor Judgment: Poor Results Vitals/IOs Vital Signs Date Time Temp Pulse Resp B/P (MAP) Pulse Ox O2 Delivery O2 Flow Rate FiO2 01/27/18 05:28 98.0 93 16 127/62 (83) 99 Assessment & Plan Problem List: (1) Schizoaffective disorder ICD Codes: F25.9 - Schizoaffective disorder, unspecified Status: Acute Assessment & Plan Estimated LOS: days patient remains psychotic with delusional flavor, compliant antipsychotics. See labs ordered for tomorrow Justification for Cont. Inpt. At this time patient would decompensate and placed on a lower level of care Discharge Planning To be determined Request HC Surrog/Guard Advoc?: Yes Problem Qualifiers (1) Schizoaffective disorder: Qualified Codes: F25.0 - Schizoaffective disorder, bipolar type Gary Pino MD January 27, 2018 11:38
[2018-01-27] MEDS: ACETAMINOPHEN 325 MG TAB PO PRN (22:53)
[2018-01-27] MEDS: diphenhydrAMINE HCL 50 MG CAP PO PRN (23:58)
[2018-01-28 06:47] VITALS: BP 119/55; PULSE 82; RESP 15; TEMP 96.9; O2SAT 96
[2018-01-28] MEDS: INSULIN ASPART SUPPLEMENTAL SCALE SQ SCH ×4 (08:00→21:00)
[2018-01-28] MEDS: LITHIUM CARBONATE 300 MG CAP PO SCH ×2 (09:12→21:20)
[2018-01-28] MEDS: OLANZapine 2.5 MG TAB PO SCH ×2 (09:12→21:20)
--- NOTE | 2018-01-28 12:42 | HHI.PYPN ---
Subjective Chief Complaint: Exacerbation of SAD Remarks Patient was seen and case discussed with nursing. Patient interviewed in bed. Per nursing, she has been angry and irritable however is cooperative with my interview. 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 She talks about planning a trip. She describes her mood today as being "worn out." Mental Status Examination Appearance: Other (Fair hygiene and grooming) Consciousness: Alert Orientation: x4 Motor Activity: Normal gait, Other (No motor abnormalities noted) Speech: Unremarkable Language: Other (Limited sample today) Fund of Knowledge: Adequate Attention and Concentration: Easily Distracted Mood: Other (Dysphoric) Affect: Other (Restricted) Thought Process & Associations: Circumstantial Thought Content: Hallucinations, Delusional Hallucination Type: Other (Internally preoccupied) Delusion Type: Bizarre, Paranoid, Other (Guarded, suspect ongoing paranoia) Suicidal Ideation: No (No SI voiced) Suicidal Plan: No Suicidal Intention: No Homicidal Ideation: No (No HI voiced) Insight: Poor Judgment: Poor Results Vitals/IOs Vital Signs Date Time Temp Pulse Resp B/P (MAP) Pulse Ox O2 Delivery O2 Flow Rate FiO2 01/28/18 06:47 96.9 82 15 119/55 (76) 96 Intake and Output 01/28/18 01/28/18 01/29/18 08:00 16:00 00:00 Intake Total 480 ml Balance 480 ml Assessment & Plan Problem List: (1) Schizoaffective disorder ICD Codes: F25.9 - Schizoaffective disorder, unspecified Status: Acute Assessment & Plan Continue current treatment plan Justification for Cont. Inpt. Patient would decompensate in a less restrictive setting Request HC Surrog/Guard Advoc?: Yes Problem Qualifiers (1) Schizoaffective disorder: Qualified Codes: F25.0 - Schizoaffective disorder, bipolar type Rishi Fleming DO January 28, 2018 12:42
[2018-01-28 18:00] VITALS: BP 120/60; PULSE 89; RESP 17; TEMP 97.8; O2SAT 96
[2018-01-28 20:52] LABS: ALBUMIN 3.1 GM/DL (3.4-5.0); AST (GOT) 13 U/L (15-37); BLOOD UREA NITROGEN 20 MG/DL (7-18); CALCIUM 9.2 MG/DL (8.5-10.1); CHLORIDE 107 MEQ/L (98-107); CREATININE 1.23 MG/DL (0.50-1.00); GLOMERULAR FILTRATION RATE 46 ML/MIN (>89); GLUCOSE,RANDOM 118 MG/DL (74-106); SODIUM (NA) 142 MEQ/L (136-145)
[2018-01-28 20:53] LABS: ALT (GPT) 28 U/L (10-53)
[2018-01-28 20:56] LABS: ALKALINE PHOSPHATASE 89 U/L (45-117); TOTAL BILIRUBIN ADULT 0.2 MG/DL (0.2-1.0); TOTAL PROTEIN 7.5 GM/DL (6.4-8.2)
[2018-01-28] MEDS: diphenhydrAMINE HCL 50 MG CAP PO PRN (21:20)
[2018-01-28] MEDS: ACETAMINOPHEN 325 MG TAB PO PRN (22:22)
[2018-01-29 05:40] VITALS: BP 107/58; PULSE 75; RESP 16; TEMP 97.3; O2SAT 96
[2018-01-29] MEDS: INSULIN ASPART SUPPLEMENTAL SCALE SQ SCH ×4 (08:00→21:00)
[2018-01-29] MEDS: OLANZapine 2.5 MG TAB PO SCH ×2 (08:52→20:56)
[2018-01-29] MEDS: LITHIUM CARBONATE 300 MG CAP PO SCH ×2 (08:54→20:56)
--- NOTE | 2018-01-29 13:32 | HHI.PYPN ---
Subjective Chief Complaint: Exacerbation of SAD Remarks Patient was seen and case discussed with nursing. Patient is less delusional compared to last week. No longer believe she is studying medicine. Feels that she is thinking clearly. Mental Status Examination Appearance: Other (Fair hygiene and grooming) Consciousness: Alert Orientation: x4 Motor Activity: Normal gait, Other (No motor abnormalities noted) Speech: Unremarkable Language: Other (Limited sample today) Fund of Knowledge: Adequate Attention and Concentration: Easily Distracted Mood: Other (Dysphoric) Affect: Other (Restricted) Thought Process & Associations: Circumstantial Thought Content: Hallucinations, Delusional Hallucination Type: Other (Internally preoccupied) Delusion Type: Bizarre, Paranoid, Other (Guarded, suspect ongoing paranoia) Suicidal Ideation: No (No SI voiced) Suicidal Plan: No Suicidal Intention: No Homicidal Ideation: No (No HI voiced) Insight: Poor Judgment: Poor Results Labs Test 01/28/18 19:50 Blood Urea Nitrogen 20 MG/DL Creatinine 1.23 MG/DL Random Glucose 118 MG/DL Total Protein 7.5 GM/DL Albumin 3.1 GM/DL Calcium Level 9.2 MG/DL Alkaline Phosphatase 89 U/L Aspartate Amino Transf (AST/SGOT) 13 U/L Alanine Aminotransferase (ALT/SGPT) 28 U/L Total Bilirubin 0.2 MG/DL Sodium Level 142 MEQ/L Potassium Level 3.9 MEQ/L Chloride Level 107 MEQ/L Carbon Dioxide Level 27.0 MEQ/L Anion Gap 8 MEQ/L Estimat Glomerular Filtration Rate 46 ML/MIN [place] Level 0.7 MEQ/L Vitals/IOs Vital Signs Date Time Temp Pulse Resp B/P (MAP) Pulse Ox O2 Delivery O2 Flow Rate FiO2 01/29/18 05:40 97.3 75 16 107/58 (56) 96 Assessment & Plan Problem List: (1) Schizoaffective disorder ICD Codes: F25.9 - Schizoaffective disorder, unspecified Status: Acute Assessment & Plan Continue current treatment plan Justification for Cont. Inpt. Patient would decompensate in a less restrictive setting Request HC Surrog/Guard Advoc?: Yes Problem Qualifiers (1) Schizoaffective disorder: Qualified Codes: F25.0 - Schizoaffective disorder, bipolar type Rishi Fleming DO January 29, 2018 13:32
[2018-01-29 13:41] LABS: HEMOGLOBIN A1C 6.6 % (4.3-6.0)
[2018-01-29 17:57] VITALS: BP 138/61; PULSE 96; RESP 16; TEMP 97.9; O2SAT 97
[2018-01-29] MEDS: diphenhydrAMINE HCL 50 MG CAP PO PRN (23:51)
[2018-01-30 05:47] VITALS: BP 115/76; PULSE 82; RESP 16; TEMP 98.3; O2SAT 95
[2018-01-30] MEDS: INSULIN ASPART SUPPLEMENTAL SCALE SQ SCH ×4 (08:00→21:00)
[2018-01-30] MEDS: OLANZapine 2.5 MG TAB PO SCH ×2 (09:40→21:01)
[2018-01-30] MEDS: LITHIUM CARBONATE 300 MG CAP PO SCH ×2 (09:40→21:00)
--- NOTE | 2018-01-30 12:44 | HHI.PYPN ---
Subjective Chief Complaint: Exacerbation of SAD Remarks Patient seen in her room with nurse Nell, chart reviewed, patient compliant medication, patient discussed with nurse. [place] level drawn 01/28 is 0.7 on 600 mg twice daily. Patient somewhat calmer with me today more focused and less irritable and paranoid. She has improved eye contact. She now denies suicidality homicidality voices or visions. Continues to deflect responsibility for multiple psychiatric hospitalizations and behaviors on family and others. She continues to state plans of staying with a neighbor for a few days then relocating to [place] to save her correction and for which she is some type of 4. Then relocating out of [facility]. For now continue treatment no change Review of Systems Except as stated in HPI: all other systems reviewed are Neg Mental Status Examination Appearance: Disheveled (Slightly) Consciousness: Alert Orientation: x4 Motor Activity: Normal gait, Other (No motor abnormalities noted) Speech: Unremarkable Language: Adequate Fund of Knowledge: Adequate Attention and Concentration: Easily Distracted (Improved) Memory: Unremarkable Mood: Other (Euthymic to mildly dysphoric) Affect: Other (Improved range and intensity) Thought Process & Associations: Intact Thought Content: Hallucinations, Delusional (Improved) Hallucination Type: None (Denies at this time) Delusion Type: Other (Guarded, suspect ongoing paranoia) Suicidal Ideation: No Suicidal Plan: No Suicidal Intention: No Homicidal Ideation: No Homicidal Plan: No Homicidal Intention: No Insight: Poor Judgment: Poor Results Vitals/IOs Vital Signs Date Time Temp Pulse Resp B/P (MAP) Pulse Ox O2 Delivery O2 Flow Rate FiO2 01/30/18 05:47 98.3 82 16 115/76 (89) 95 Assessment & Plan Problem List: (1) Schizoaffective disorder ICD Codes: F25.9 - Schizoaffective disorder, unspecified Status: Acute Assessment & Plan Estimated LOS: days patient calmer with some increased focus, this also vigilance regarding but it is less. She is compliant with medications. [place] level of 0.7. For now continue treatment Justification for Cont. Inpt. At this time patient would decompensate a place to the lower level of care Discharge Planning Needs to be determined the patient returns home briefly or she goes to her neighbor briefly, patient planning on relocating to [place] correction get a certain form she needs for her work Request HC Surrog/Guard Advoc?: Yes Problem Qualifiers (1) Schizoaffective disorder: Qualified Codes: F25.0 - Schizoaffective disorder, bipolar type Gary Pino MD January 30, 2018 12:44
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
[2018-01-30 18:28] VITALS: BP 122/65; PULSE 93; RESP 20; TEMP 97.8; O2SAT 99
[2018-01-30] MEDS: diphenhydrAMINE HCL 50 MG CAP PO PRN (23:48)
[2018-01-31 04:00] VITALS: BP 106/53; PULSE 76; RESP 18; TEMP 98.3; O2SAT 97
[2018-01-31] MEDS: INSULIN ASPART SUPPLEMENTAL SCALE SQ SCH ×3 (07:21→16:36)
[2018-01-31] MEDS: LITHIUM CARBONATE 300 MG CAP PO SCH (08:51)
[2018-01-31] MEDS: OLANZapine 2.5 MG TAB PO SCH (08:51)
[2018-01-31] MEDS ORDERED: OLAN10TA PO (13:16)
[2018-01-31] MEDS ORDERED: LITH300T3 PO (13:16)
--- NOTE | 2018-01-31 13:22 | HHI.DS ---
Psychiatry Discharge Summary Inpatient Psychiatric care?: Yes Advance Directive: No Reason Not Provided: Due to Patient Condition Mental Health AdvanceDirective: No Health Care Proxy: No Admission Admission Date Jan 09, 2018 at 08:07 Admission Diagnosis: (1) Schizoaffective disorder ICD Code: F25.9 - Schizoaffective disorder, unspecified Brief History The patient is a 52-year-old woman, domicile with her mother, unemployed, single, supported by [facility], with psychiatric history of bipolar disorder, multiple psychiatric hospitalizations, last hospitalization was here in [place] in 2017, she has 2 previous suicidal attempts by overdoses, established outpatient care in [facility], under a [place] act by law enforcement alleging that the patient is off of her prescribed medications and is hallucinating. Consulted for second opinion. I saw the patient in consult. 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 kind of disorganized. She denies suicidal and homicidal ideation, she denies visual and auditory hallucinations per Tobacco Use In Past 30 Days: No Tobacco Past 30 Days Alcohol Use: Never Hospital Course Patient's initial irritability paranoia overall manipulativeness slowly resolved , she has been compliant with medication, she now denies suicidality and homicidality voices or visions. The continues ideas of reference related towards her family. However she realizes the need to maintain distance from them. Patient states she has a place to stay with a friend guanako that she is working with [employer] to drawing the fact 15. He states she still may have to go to [place] also. In any event at the present time patient will be meets criteria for acute psychiatric hospitalization thus patient will be discharged today with Rx 1 month of her lithium and her Zyprexa to follow- up [employer] Results Blood Pressure 106 / 53 Vital Signs Date Time Temp Pulse Resp B/P (MAP) Pulse Ox O2 Delivery O2 Flow Rate FiO2 01/31/18 04:00 98.3 76 18 106/53 (70) 97 Laboratory Tests Test 01/28/18 19:50 Blood Urea Nitrogen 20 MG/DL (7-18) Creatinine 1.23 MG/DL (0.50-1.00) Random Glucose 118 MG/DL (74-106) Albumin 3.1 GM/DL (3.4-5.0) Aspartate Amino Transf (AST/SGOT) 13 U/L (15-37) Estimat Glomerular Filtration Rate 46 ML/MIN (>89) Hemoglobin A1c 6.6 % (4.3-6.0) Laboratory Results Test 01/28/18 19:50 Hemoglobin A1c 6.6 % (4.3-6.0) [place] Level 0.7 MEQ/L (0.5-1.5) Summary of Procedures None done Pending results at discharge: No Medications # of Antipsychotic meds at D/C: 1 Approp Antipsych med options 1 - Minimum of three failed multiple trials of monotherapy. 2 - Documented plan to taper to monotherapy due to previous use of multiple meds OR cross-taper in progress at D/C. 3 - Documentation of augmentation of Clozapine. 4 - Justification other than those listed in allowable values 1-3, document here : Discharge Discharge Date: January 31, 2018 Discharge Diagnosis: (1) Schizoaffective disorder Diagnosis: Principal ICD Code: F25.9 - Schizoaffective disorder, unspecified Status: Acute Pt Condition on Discharge: Stable Discharge Disposition: Discharge Home Discharge Instructions Diet Instructions: As Tolerated, No Restrictions Activities you can perform: Regular-No Restrictions Scheduled Appointment: Naldo Charles Discharge Time > 30 minutes Mental Status Examination Appearance: Disheveled (Slightly) Consciousness: Alert Orientation: x4 Motor Activity: Normal gait, Other (No motor abnormalities noted) Speech: Unremarkable Language: Adequate Fund of Knowledge: Adequate Attention and Concentration: Easily Distracted (Improved) Memory: Unremarkable Mood: Other (Euthymic to mildly dysphoric) Affect: Other (Improved range and intensity) Thought Process & Associations: Intact Thought Content: Hallucinations, Delusional (Improved) Hallucination Type: None (Denies at this time) Delusion Type: Other (Guarded, suspect ongoing paranoia) Suicidal Ideation: No Suicidal Plan: No Suicidal Intention: No Homicidal Ideation: No Homicidal Plan: No Homicidal Intention: No Insight: Poor Judgment: Poor Discharge/Advance Care Plan Health Problems: (1) Schizoaffective disorder Goals to promote your health * To prevent worsening of your condition and complications * To maintain your health at the optimal level Directions to meet your goals Take your medications as prescribed Follow your dietary instruction Follow activity as directed Keep your appointments as scheduled Take your immunizations and boosters as scheduled If your symptoms worsen call your PCP, if no PCP go to Urgent Care Center or Emergency Room For 18/04 questions related to your inpatient stay or results of tests pending at discharge, please contact Dr. Gary Pino at Smoking is Dangerous to Your Health. Avoid second hand smoking Problem Qualifiers (1) Schizoaffective disorder: Qualified Codes: F25.0 - Schizoaffective disorder, bipolar type Gary Pino MD January 31, 2018 13:22
== END 2018-01-31 17:45 | disposition home or self-care (01) | DRG 885 ==
LOC: NEPJ 21:41 → NEDA 01-09 08:07 → H260 01-09 09:05
PROVIDERS: ADMIT Psychiatry & Neurology Psychiatry; ATTEND Psychiatry & Neurology Psychiatry
DX: F25.0 Schizoaffective disorder, bipolar type (principal); G93.5 Compression of brain; N17.9 Acute kidney failure, unspecified; E11.65 Type 2 diabetes mellitus with hyperglycemia; Z91.14 Patient's other noncompliance with medication regimen; I10 Essential (primary) hypertension; E78.5 Hyperlipidemia, unspecified; J44.9 Chronic obstructive pulmonary disease, unspecified; Z91.5 Personal history of self-harm; I25.2 Old myocardial infarction; Z86.711 Personal history of pulmonary embolism; Z79.4 Long term (current) use of insulin; Z88.8 Allergy status to other drugs, medicaments and biological substances; Z79.899 Other long term (current) drug therapy
CPT/HCPCS: 80053; 80178; 80307; 81001; 82550; 82948; 83036; 84443; 85025; 90686; 90732; 93005; Q0163; Q2038

== ENCOUNTER 2018-03-18 00:46 | Emergency (ER) | payer MEDICARE, OTHER ==
[~2018-03-18] VITALS: Ht 162.6 cm; Wt 107.0 kg
[~2018-03-18 00:46] MED LIST changes: -GLUCKIT15; -LANCETS1 MI1; -LEVEMIR SQ; -METF500T PO; -NOVORP2 SQ; +OLAN10TA PO
[2018-03-18 00:55] VITALS: PULSE 97; RESP 16; TEMP 98.7; O2SAT 98
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
[2018-03-18] MEDS ORDERED: OLANZapine 10 MG TAB PO ONE (04:00)
[2018-03-18] MEDS ORDERED: LITH300T3 PO (04:00)
[2018-03-18] MEDS ORDERED: OLAN10TA PO (04:00)
[2018-03-18] MEDS ORDERED: LITHIUM CARBONATE 300 MG SLOW RELEASE TAB PO ONE (04:00)
[2018-03-18 06:46] VITALS: BP 143/71
== END 2018-03-18 07:02 | disposition home or self-care (01) ==
LOC: NEPD 00:46
DX: F25.0 Schizoaffective disorder, bipolar type (principal); Z76.0 Encounter for issue of repeat prescription; Z59.0 Homelessness
CPT/HCPCS: 99283